=== PATIENT | male | born 1970 | race Caucasian/White ===

== ENCOUNTER 2017-02-26 23:37 | Emergency (ER) | payer SELFPAY ==
[~2017-02-26] VITALS: Ht 185.4 cm; Wt 140.0 kg
[2017-02-26 23:40] VITALS: BP 159/94; PULSE 91; RESP 16; TEMP 97.9; O2SAT 97
[2017-02-27] VITALS (7 sets, daily range): BP systolic 138–180; BP diastolic 65–103; PULSE 78–90; RESP 18–22; O2SAT 95–97
--- NOTE | 2017-02-27 00:18 | PD ---
HPI Chief Complaint: Psychiatric Symptoms Time Seen by Provider: 00:17 Travel History International Travel<30 days: No Contact w/Intl Traveler<30days: No Traveled to known affect area: No History of Present Illness HPI 46 YO male with extensive psychiatric history including PTSD, anxiety, depression, bipolar, mixed schizoaffective disorder, poor impulse control, antisocial personality type presents the ED for evaluation of "catching delusions." He states that he has been hearing voices for the last "3 or 4 days " telling him to "kill myself, torch this person, kill that person." He denies suicidal or homicidal ideation. He endorses compliance with his psychiatric medications. Denies somatic complaints on presentation. Denies illicit drug use or alcohol use. PFSH Past Medical History Asthma: Yes Social History Tobacco Use: Yes Allergies-Medications (Allergen,Severity, Reaction): Coded Allergies: No Known Allergies (Unverified , 02/27/17) Reported Meds & Prescriptions Reported Meds & Active Scripts Active Reported Gabapentin 300 Mg Cap 300 Mg PO TID Zyprexa (Olanzapine) 20 Mg Tab 20 Mg PO BID Xanax (Alprazolam) 0.5 Mg Tab 0.5 Mg PO Q8H PRN Review of Systems Except as stated in HPI: all other systems reviewed are Neg Physical Exam Narrative GENERAL: Well-nourished, well-developed obese white male in no acute distress. PSYCHIATRIC: Animated, normal speech, intense eye contact. SKIN: Focused skin assessment warm/dry. HEAD: Normocephalic. EYES: No scleral icterus. No injection or drainage. NECK: Supple, trachea midline. No JVD or lymphadenopathy. CARDIOVASCULAR: Regular rate and rhythm without murmurs, gallops, or rubs. RESPIRATORY: Breath sounds equal bilaterally. End expiratory wheezes in all lung aaron. No accessory muscle use. GASTROINTESTINAL: Abdomen protuberant, soft, non-tender, nondistended. MUSCULOSKELETAL: No cyanosis, or edema. Ambulatory. Moves extremities spontaneously. BACK: Nontender without obvious deformity. No CVA tenderness. Data Data Last Documented VS Vital Signs Date Time Temp Pulse Resp B/P Pulse Ox O2 Delivery O2 Flow Rate FiO2 02/27/17 16:39 85 22 176/100 95 Room Air 02/26/17 23:40 97.9 Orders Complete Blood Count With Diff (02/27/17 00:30) Comprehensive Metabolic Panel (02/27/17 00:30) Psych Screen (02/27/17 00:30) Drug Screen, Random Urine (02/27/17 00:30) Alcohol (Ethanol) (02/27/17 00:30) Diet Regular Basic (02/27/17 Breakfast) Diphenhydramine (Benadryl) (02/27/17 04:45) Diet Regular Basic (02/27/17 Lunch) Lorazepam Inj (Ativan Inj) (02/27/17 13:56) Diphenhydramine Inj (Benadryl Inj) (02/27/17 13:56) Haloperidol Inj (Haldol Inj) (02/27/17 13:56) Haloperidol Inj (Haldol Inj) (02/27/17 13:57) ^ Other Nursing Orders (02/27/17 14:14) Restraints Violent (02/27/17 14:39) Diet Regular Basic (02/27/17 Dinner) Labs Laboratory Tests Test 02/27/17 02/27/17 02:00 04:20 White Blood Count 8.4 TH/MM3 Red Blood Count 5.57 MIL/MM3 Hemoglobin 17.5 GM/DL Hematocrit 50.2 % Mean Corpuscular Volume 90.1 FL Mean Corpuscular Hemoglobin 31.4 PG Mean Corpuscular Hemoglobin 34.8 % Concent Red Cell Distribution Width 15.7 % Platelet Count 171 TH/MM3 Mean Platelet Volume 9.5 FL Neutrophils (%) (Auto) 56.7 % Lymphocytes (%) (Auto) 29.5 % Monocytes (%) (Auto) 7.6 % Eosinophils (%) (Auto) 5.1 % Basophils (%) (Auto) 1.1 % Neutrophils # (Auto) 4.8 TH/MM3 Lymphocytes # (Auto) 2.5 TH/MM3 Monocytes # (Auto) 0.6 TH/MM3 Eosinophils # (Auto) 0.4 TH/MM3 Basophils # (Auto) 0.1 TH/MM3 CBC Comment DIFF FINAL Differential Comment Sodium Level 141 MEQ/L Potassium Level 3.7 MEQ/L Chloride Level 104 MEQ/L Carbon Dioxide Level 30.3 MEQ/L Anion Gap 7 MEQ/L Blood Urea Nitrogen 16 MG/DL Creatinine 0.91 MG/DL Estimat Glomerular Filtration 89 ML/MIN Rate Random Glucose 115 MG/DL Calcium Level 8.9 MG/DL Total Bilirubin 0.5 MG/DL Aspartate Amino Transf 31 U/L (AST/SGOT) Alanine Aminotransferase 28 U/L (ALT/SGPT) Alkaline Phosphatase 95 U/L Total Protein 7.6 GM/DL Albumin 3.5 GM/DL Ethyl Alcohol Level LESS THAN 3 MG/DL Urine Opiates Screen NEG Urine Barbiturates Screen NEG Urine Amphetamines Screen NEG Urine Benzodiazepines Screen POS Urine Cocaine Screen NEG Urine Cannabinoids Screen POS MDM Medical Decision Making Medical Screen Exam Complete: Yes Emergency Medical Condition: Yes Differential Diagnosis Adjustment disorder versus anxiety versus bipolar versus depression versus dementia versus electrolyte disorder versus malingering versus mood disorder versus ODD versus psychosis versus PTSD versus schizophrenia versus schizoaffective disorder versus substance-induced mood disorder versus other Narrative Course 46 YO male with extensive psychiatric history including PTSD, anxiety, depression, bipolar, mixed schizoaffective disorder, poor impulse control, antisocial personality type presents the ED for evaluation of "catching delusions." He states that he has been hearing voices for the last "3 or 4 days " telling him to "kill myself, torch this person, kill that person." He denies suicidal or homicidal ideation. He endorses compliance with his psychiatric medications. Denies somatic complaints on presentation. Vitals reviewed. Physical exam reveals an obese white male in no acute distress. Indifferent or wheezes bilateral lung aaron. Abdomen soft, nontender. Otherwise unremarkable. Patient does spend several minutes detailing the violent and impulsive things he's done throughout his lifetime. He states that he has been imprisoned the majority of his life. Lab work pending. Anticipate medical clearance for psychiatric evaluation. Diagnosis Primary Impression: Medical clearance for psychiatric admission Victoria Moore Feb 27, 2017 00:18
[2017-02-27] MEDS ORDERED: ZYPR20TA PO (00:21)
[2017-02-27] MEDS ORDERED: ALPR.5 PO (00:21)
[2017-02-27] MEDS ORDERED: GABA300C5 PO (00:21)
[2017-02-27 02:37] LABS: AUTOMATED NEUTROPHIL # 4.8 TH/MM3 (1.8-7.7); BASOPHIL # 0.1 TH/MM3 (0-0.2); BASOPHIL % 1.1 % (0.0-2.0); EOSINOPHIL # 0.4 TH/MM3 (0-0.4); EOSINOPHIL % 5.1 % (0.0-4.0); HEMATOCRIT 50.2 % (39.0-51.0); HEMO FLAGS DIFF FINAL; LYMPH % 29.5 % (9.0-44.0); LYMPHOCYTE # 2.5 TH/MM3 (1.0-4.8); MEAN CELL VOLUME 90.1 FL (80.0-100.0); MEAN CORPUSCULAR HEMOGLOBIN 31.4 PG (27.0-34.0); MEAN CORPUSCULAR HGB CONC 34.8 % (32.0-36.0); MONO % 7.6 % (0.0-8.0); NEUT % 56.7 % (16.0-70.0); PLATELET COUNT 171 TH/MM3 (150-450); RED BLOOD COUNT 5.57 MIL/MM3 (4.50-5.90); RED CELL DISTRIBUTION WIDTH 15.7 % (11.6-17.2); WHITE BLOOD COUNT 8.4 TH/MM3 (4.0-11.0)
[2017-02-27 03:03] LABS: ALKALINE PHOSPHATASE 95 U/L (45-117); TOTAL BILIRUBIN ADULT 0.5 MG/DL (0.2-1.0)
[2017-02-27 03:11] LABS: ALT (GPT) 28 U/L (12-78); ANION GAP 7 MEQ/L (5-15); AST (GOT) 31 U/L (15-37); BICARBONATE 30.3 MEQ/L (21.0-32.0); BLOOD UREA NITROGEN 16 MG/DL (7-18); CHLORIDE 104 MEQ/L (98-107); GLOMERULAR FILTRATION RATE 89 ML/MIN (>89); POTASSIUM 3.7 MEQ/L (3.5-5.1); SODIUM (NA) 141 MEQ/L (136-145)
--- NOTE | 2017-02-27 03:33 | PD ---
Physical Exam Date Seen by Provider: Feb 27, 2017 Time Seen by Provider: 03:31 Data Data Last Documented VS Vital Signs Date Time Temp Pulse Resp B/P Pulse Ox O2 Delivery O2 Flow Rate FiO2 02/26/17 23:40 97.9 91 16 159/94 97 Room Air Orders Complete Blood Count With Diff (02/27/17 00:30) Comprehensive Metabolic Panel (02/27/17 00:30) Psych Screen (02/27/17 00:30) Drug Screen, Random Urine (02/27/17 00:30) Alcohol (Ethanol) (02/27/17 00:30) Labs Laboratory Tests Test 02/27/17 02:00 White Blood Count 8.4 TH/MM3 Red Blood Count 5.57 MIL/MM3 Hemoglobin 17.5 GM/DL Hematocrit 50.2 % Mean Corpuscular Volume 90.1 FL Mean Corpuscular Hemoglobin 31.4 PG Mean Corpuscular Hemoglobin 34.8 % Concent Red Cell Distribution Width 15.7 % Platelet Count 171 TH/MM3 Mean Platelet Volume 9.5 FL Neutrophils (%) (Auto) 56.7 % Lymphocytes (%) (Auto) 29.5 % Monocytes (%) (Auto) 7.6 % Eosinophils (%) (Auto) 5.1 % Basophils (%) (Auto) 1.1 % Neutrophils # (Auto) 4.8 TH/MM3 Lymphocytes # (Auto) 2.5 TH/MM3 Monocytes # (Auto) 0.6 TH/MM3 Eosinophils # (Auto) 0.4 TH/MM3 Basophils # (Auto) 0.1 TH/MM3 CBC Comment DIFF FINAL Differential Comment Sodium Level 141 MEQ/L Potassium Level 3.7 MEQ/L Chloride Level 104 MEQ/L Carbon Dioxide Level 30.3 MEQ/L Anion Gap 7 MEQ/L Blood Urea Nitrogen 16 MG/DL Creatinine 0.91 MG/DL Estimat Glomerular Filtration 89 ML/MIN Rate Random Glucose 115 MG/DL Calcium Level 8.9 MG/DL Total Bilirubin 0.5 MG/DL Aspartate Amino Transf 31 U/L (AST/SGOT) Alanine Aminotransferase 28 U/L (ALT/SGPT) Alkaline Phosphatase 95 U/L Total Protein 7.6 GM/DL Albumin 3.5 GM/DL Ethyl Alcohol Level LESS THAN 3 MG/DL [facility] Medical Record Reviewed: Yes Supervised Visit with KIRSTEN: Yes Interpretation(s) CBC & BMP Diagram 02/27/17 02:00 EtOH: Negative Differential Diagnosis MDM: High Differential diagnoses: Schizophrenia, schizoaffective disorder, bipolar, anxiety, depression, adjustment reaction, mood disorder NOS, ODD, depressive disorder NOS, dementia, dementia with agitation, psychosis NOS, substance induced mood disorder, intermittent explosive disorder, Asperger syndrome, infection,electrolyte abnormality, malingering. Narrative Course Mental health screening discussed with the patient. Psychiatric screen ordered. The patient's been medically cleared. His medical clearance for psychiatric admission Diagnosis Primary Impression: Medical clearance for psychiatric admission Condition: Stable Ata Fernández Feb 27, 2017 03:33
[2017-02-27] MEDS ORDERED: diphenhydrAMINE HCL 50 MG CAP PO ONE (04:45)
[2017-02-27 04:54] LABS: AMPHETAMINE, URINE NEG (NEG); BARBITURATES, URINE NEG (NEG); COCAINE, URINE NEG (NEG)
[2017-02-27] MEDS ORDERED: HALOPERIDOL LACTATE 5 MG/ML AMP ONE ×2 (13:56→13:57)
[2017-02-27] MEDS ORDERED: LORazepam 2 MG/ML VIAL ONE (13:56)
[2017-02-27] MEDS ORDERED: diphenhydrAMINE HCL 50 MG/ML VIAL ONE (13:56)
--- NOTE | 2017-02-27 14:07 | PD ---
History of Present Illness Chief Complaint: Psychiatric Symptoms Time Seen by Provider: 13:30 Travel History International Travel<30 Days: No Contact w/Intl Traveler<30days: No Known affected area: No Legal Status Legal Status: Voluntary History of Present Illness: 46-year-old male recently moved to this area, now homeless and complaining of posttraumatic stress disorder, auditory hallucinations and both suicidal and homicidal thoughts. Patient has self reportedly admitted to multiyear history of incarceration. He has been treated in the past by doctors prescribing him Zyprexa, Xanax and occasional Zoloft. At this time, he does not objectively appear to have significant symptoms of posttraumatic stress disorder or other major mental illnesses. He does appear to be quite manipulative and is complaining of hearing voices when there is no evidence of him responding to internal stimuli. When this physician offered to renew his medications but not admit him, the patient became physically violent, threatening to kill this physician or other individuals as well as kill himself. Patient required physical restraints and chemical restraints as he is a large and violent man. PFSH Past Medical History Asthma: Yes Bipolar Disorder: Yes Diminished Hearing: No Psychiatric: Yes (PTSD, ) Past Surgical History Surgical History: No Previous Surgery Psychiatric History Psychiatric History Hx Psychiatric Treatment: YES PER PATIENT. Patient reports history of posttraumatic stress disorder, schizophrenia, etc. This physician does not see significant objective evidence of any major mental illness with the exception of malingering. History of Inpatient Treatment: Yes Guns or firearms in home: No Social History Hx Alcohol Use: No Hx Tobacco Use: Yes Hx Substance Use: Yes Substance Use Type: Marijuana, Nicotine/Cigarettes Other Substances Used: PATIENT REPORTS 2 PPD Hx of Substance Use Treatment: No Allergies-Medications (Allergen,Severity, Reaction): Coded Allergies: No Known Allergies (Unverified , 02/27/17) Reported Meds & Prescriptions Reported Meds & Active Scripts Active Reported Gabapentin 300 Mg Cap 300 Mg PO TID Zyprexa (Olanzapine) 20 Mg Tab 20 Mg PO BID Xanax (Alprazolam) 0.5 Mg Tab 0.5 Mg PO Q8H PRN Review of Systems ROS Limitations: Combative Exam Exam Limitations: Combative Alert: Yes [place]: Person, Place, Date, Situation Mood: Agitated, Angry, Oppositional Affect: Labile Speech: Clear, Logical Eye Contact: Normal Memory Intact: Immediate, Recent, Remote Suicidal: Ideation Homicidal: Ideation Insight/Judgement Impaired at this time. MDM Medical Decision Making Medical Record Reviewed: Yes Assessment/Plan Spoke with nurse and spoke with patient. When patient learned this physician would give him medicines but not admit him, the patient became violent and threatening towards this physician, himself and random other people. Patient requires physical and chemical restraints. He will be reevaluated. This physician continues to feel the patient's main diagnosis psychiatrically is malingering. Orders Complete Blood Count With Diff (02/27/17 00:30) Comprehensive Metabolic Panel (02/27/17 00:30) Psych Screen (02/27/17 00:30) Drug Screen, Random Urine (02/27/17 00:30) Alcohol (Ethanol) (02/27/17 00:30) Diet Regular Basic (02/27/17 Breakfast) Diphenhydramine (Benadryl) (02/27/17 04:45) Diet Regular Basic (02/27/17 Lunch) Lorazepam Inj (Ativan Inj) (02/27/17 13:56) Diphenhydramine Inj (Benadryl Inj) (02/27/17 13:56) Haloperidol Inj (Haldol Inj) (02/27/17 13:56) Haloperidol Inj (Haldol Inj) (02/27/17 13:57) Results Vital Signs Date Time Temp Pulse Resp B/P Pulse Ox O2 Delivery O2 Flow Rate FiO2 02/27/17 10:10 78 18 138/65 Room Air 02/27/17 08:46 152/84 02/27/17 06:37 81 18 151/102 97 02/26/17 23:40 97.9 91 16 159/94 97 Room Air Laboratory Tests Test 02/27/17 02/27/17 02:00 04:20 White Blood Count 8.4 Red Blood Count 5.57 Hemoglobin 17.5 Hematocrit 50.2 Mean Corpuscular Volume 90.1 Mean Corpuscular Hemoglobin 31.4 Mean Corpuscular Hemoglobin 34.8 Concent Red Cell Distribution Width 15.7 Platelet Count 171 Mean Platelet Volume 9.5 Neutrophils (%) (Auto) 56.7 Lymphocytes (%) (Auto) 29.5 Monocytes (%) (Auto) 7.6 Eosinophils (%) (Auto) 5.1 Basophils (%) (Auto) 1.1 Neutrophils # (Auto) 4.8 Lymphocytes # (Auto) 2.5 Monocytes # (Auto) 0.6 Eosinophils # (Auto) 0.4 Basophils # (Auto) 0.1 CBC Comment DIFF FINAL Differential Comment Sodium Level 141 Potassium Level 3.7 Chloride Level 104 Carbon Dioxide Level 30.3 Anion Gap 7 Blood Urea Nitrogen 16 Creatinine 0.91 Estimat Glomerular Filtration 89 Rate Random Glucose 115 Calcium Level 8.9 Total Bilirubin 0.5 Aspartate Amino Transf 31 (AST/SGOT) Alanine Aminotransferase 28 (ALT/SGPT) Alkaline Phosphatase 95 Total Protein 7.6 Albumin 3.5 Ethyl Alcohol Level LESS THAN 3 Urine Opiates Screen NEG Urine Barbiturates Screen NEG Urine Amphetamines Screen NEG Urine Benzodiazepines Screen POS Urine Cocaine Screen NEG Urine Cannabinoids Screen POS Diagnosis Primary Impression: Malingering Condition: Stable Rajan Kaufman MD Feb 27, 2017 14:07
== END 2017-02-27 21:44 | disposition home or self-care (01) ==
LOC: NEPD 23:37 → NEPJ 02-27 21:44
DX: R44.0 Auditory hallucinations (principal); F12.90 Cannabis use, unspecified, uncomplicated; F43.10 Post-traumatic stress disorder, unspecified; F41.8 Other specified anxiety disorders; F31.9 Bipolar disorder, unspecified; F25.0 Schizoaffective disorder, bipolar type; F60.2 Antisocial personality disorder; Z72.0 Tobacco use; Z59.0 Homelessness; Z76.5 Malingerer [conscious simulation]
CPT/HCPCS: 80053; 80307; 85025; 96372; 99285; J1200; J1630; J2060; Q0163

== ENCOUNTER 2017-02-27 22:54 | Emergency (ER) | payer OTHER ==
[~2017-02-27] VITALS: Ht 185.4 cm; Wt 170.0 kg
[~2017-02-27 22:54] MED LIST: ALPR.5 PO; GABA300C5 PO; ZYPR20TA PO
--- NOTE | 2017-02-27 23:09 | PD ---
HPI Chief Complaint: [place] act Time Seen by Provider: 23:05 (Ata Fernández) Time Seen by Provider: 23:03 (Silverio Hammond MD) Travel History International Travel<30 days: No Contact w/Intl Traveler<30days: No Traveled to known affect area: No (Ata Fernández) International Travel<30 days: No Contact w/Intl Traveler<30days: No Traveled to known affect area: No (Silverio Hammond MD) History of Present Illness HPI 46-year-old white male returns after being discharged from the hospital only approximately an hour ago after being discharged by the psychiatrist. The patient is here once again under [place] act. The patient states that he is suicidal and homicidal. He states that he would like to be admitted to the hospital because he does not feel his psychiatric needs have been met. He was offered a refill of his medications but he states that he does not have the funds to fill them nor does he feel that this is going to help him. He feels that he needs to be admitted to the hospital for some time to get medications leveled in his body. He states that he suffers from posttraumatic stress disorder and a host of other psychiatric problems as well as anxiety and depression. The patient states that his hearing voices. The patient states that he will walk out traffic. He also states that he will hurt someone. He has no plan on hurting anyone at this time. (Ata Fernández) HPI Patient being seen by my title i assistant. Please see his that his dictation. (Silverio Hammond MD) PFSH Past Medical History Asthma: Yes Bipolar Disorder: Yes Diminished Hearing: No Psychiatric: Yes (PTSD, ) (Ata Fernández) Social History Alcohol Use: No Tobacco Use: Yes Substance Use: Yes (Ata Fernández) Allergies-Medications (Allergen,Severity, Reaction): Coded Allergies: No Known Allergies (Unverified , 02/27/17) Reported Meds & Prescriptions Reported Meds & Active Scripts Active Reported Gabapentin 300 Mg Cap 300 Mg PO TID Zyprexa (Olanzapine) 20 Mg Tab 20 Mg PO BID Xanax (Alprazolam) 0.5 Mg Tab 0.5 Mg PO Q8H PRN (Silverio Hammond MD) Review of Systems Except as stated in HPI: all other systems reviewed are Neg Psychiatric: Positive: Anxiety, Depression, Suicidal Ideations, Disorder of Thought, Homicidal Ideation, No: Mood Disorder, Substance Abuse (Ata Fernández) General / Constitutional: No: Fever Eyes: No: Visual changes HENT: No: Headaches Cardiovascular: No: Chest Pain or Discomfort Respiratory: No: Shortness of Breath Gastrointestinal: No: Abdominal Pain Genitourinary: No: Dysuria Musculoskeletal: No: Pain Skin: No Rash Neurologic: No: Weakness Psychiatric: No: Depression Endocrine: No: Polydipsia Hematologic/Lymphatic: No: Easy Bruising (Silverio Hammond MD) Physical Exam Narrative Please see physician title i assistant dictation. (Silverio Hammond MD) Data Data Last Documented VS Vital Signs Date Time Temp Pulse Resp B/P Pulse Ox O2 Delivery O2 Flow Rate FiO2 02/27/17 23:22 98.4 90 14 127/86 94 (Silverio Hammond MD) Orders Psych Screen (02/27/17 23:03) (Silverio Hammond MD) MDM Medical Decision Making Medical Screen Exam Complete: Yes Emergency Medical Condition: Yes Medical Record Reviewed: Yes Differential Diagnosis MDM: High Differential diagnoses: Schizophrenia, schizoaffective disorder, bipolar, anxiety, depression, adjustment reaction, mood disorder NOS, ODD, depressive disorder NOS, dementia, dementia with agitation, psychosis NOS, substance induced mood disorder, intermittent explosive disorder, Asperger syndrome, infection,electrolyte abnormality, malingering. Narrative Course Mental health screening discussed with the patient. Psychiatric screen ordered. The patient's been medically cleared. I reviewed the patient's medical record. There is no indication for any additional testing at this time. He was just discharged a little over an hour ago. He was seen by the psychiatrist and deemed safe to go. The patient feels that he needs to be admitted. He states that he is homeless. He has no money. Medical clearance for psychiatric admission, malingering (Ata Fernández) Medical Screen Exam Complete: Yes Emergency Medical Condition: Yes Medical Record Reviewed: Yes Differential Diagnosis Please see physician title i assistant dictation. Narrative Course Please see physician title i assistant dictation. (Silverio Hammond MD) Diagnosis Primary Impression: Medical clearance for psychiatric admission Additional Impression: Malingering Condition: Stable Ata Fernández Feb 27, 2017 23:09 Silverio Hammond MD Feb 28, 2017 00:19
[2017-02-27 23:22] VITALS: BP 127/86; PULSE 90; RESP 14; TEMP 98.4; O2SAT 94
[2017-02-28] MEDS ORDERED: OLANZapine 10 MG TAB PO ONE (07:45)
[2017-02-28] MEDS ORDERED: ALPRAZolam 0.5 MG TAB PO ONE (07:45)
[2017-02-28] MEDS ORDERED: GABAPENTIN 300 MG CAP PO ONE (07:45)
== END 2017-02-28 08:19 | disposition home health service (06) ==
LOC: NEPD 22:54
DX: Z76.5 Malingerer [conscious simulation] (principal); F31.9 Bipolar disorder, unspecified; F43.10 Post-traumatic stress disorder, unspecified; Z72.0 Tobacco use
CPT/HCPCS: 99284

== ENCOUNTER 2017-06-12 15:27 | Emergency (ER) | payer SELFPAY ==
[~2017-06-12] VITALS: Ht 182.9 cm; Wt 170.0 kg
--- NOTE | 2017-06-12 15:32 | PD ---
Physical Exam Date Seen by Provider: Jun 12, 2017 Time Seen by Provider: 15:32 MDM Supervised Visit with KIRSTEN: No Narrative Course 47-year-old male presents to the ED via EMS for 8/10 lower back and left flank pain. Sudden onset after a coughing fit today. Patient seen in triage, awaiting bed placement. Victoria Moroe Jun 12, 2017 15:32
[2017-06-12 15:44] VITALS: BP 113/69; PULSE 95; RESP 18; TEMP 98; O2SAT 98
[2017-06-12] MEDS ORDERED: TRAM50TA PO ×2 (18:31→19:49)
[2017-06-12] MEDS ORDERED: KETOROLAC TROMETHAMINE 30 MG/ML (IVP) VIAL IV PUSH ONE (18:45)
[2017-06-12] MEDS: RESP: ALBUTEROL 2.5 MG/IPRATROPIUM 0.5 MG NEB (SCH) INH ×2 (18:45→19:00)
[2017-06-12] MEDS ORDERED: CYCLOBENZAPRINE HCL 10 MG TAB PO ONE (18:45)
[2017-06-12] MEDS ORDERED: methylPREDNISolone SOD SUCC 125 MG/2 ML VIAL IV PUSH ONE (18:45)
--- NOTE | 2017-06-12 19:29 | RADRPT ---
EXAM DATE/TIME: 06/12/2017 18:46 [facility] COMPARISON: No previous studies available for comparison. INDICATIONS : Left side rib pain following cough. MEDICAL HISTORY : Chronic obstructive pulmonary disease. Asthma. SURGICAL HISTORY : None. ENCOUNTER: Initial ACUITY: 2 days PAIN SCORE: 8/10 LOCATION: Left Lower ribs FINDINGS: Multiple views of the left ribs were performed. There is no evidence of displaced fracture. No dest ructive lesions or areas of periosteal thickening are seen. Expiratory view of the chest is negative for pneumothorax. The mediastinal structures are midline. CONCLUSION: No left rib fracture seen. Jhonatan Malloy MD on June 12, 2017 at 19:26 Board Certified Radiologist. This report was verified electronically.
[2017-06-12] MEDS ORDERED: ACETAMINOPHEN/HYDROcodone 325 MG/5 MG TAB PO ONE (19:45)
--- NOTE | 2017-06-12 19:49 | PD ---
HPI Chief Complaint: Flank/Kidney Pain Time Seen by Provider: 18:25 Travel History International Travel<30 days: No Contact w/Intl Traveler<30days: No Traveled to known affect area: No History of Present Illness HPI Patient is a 47 year old male who comes in complaining of left sided back pain. He says he was coughing when he started to feel severe pain in his back, as if he had pulled something or broken a rib. He says he has broken ribs in the past from coughing. He did not take anything at home for pain because he says "I am a big man and Motrin doesn't work." He denies nausea or vomiting. He denies any urinary issues. PFSH Past Medical History Asthma: Yes Bipolar Disorder: Yes Diminished Hearing: No Psychiatric: Yes (PTSD, ) Respiratory: Yes (COPD) Schizophrenia: Yes Social History Alcohol Use: Yes Tobacco Use: Yes Substance Use: Yes Allergies-Medications (Allergen,Severity, Reaction): Coded Allergies: No Known Allergies (Unverified , 02/27/17) Reported Meds & Prescriptions Reported Meds & Active Scripts Active Reported Tramadol (Tramadol HCl) 50 Mg Tab 50 Mg PO Q4H PRN Review of Systems Except as stated in HPI: all other systems reviewed are Neg General / Constitutional: No: Fever, Chills HENT: No: Headaches, Lightheadedness Cardiovascular: No: Chest Pain or Discomfort Respiratory: Positive: Cough, No: Shortness of Breath Gastrointestinal: No: Nausea, Vomiting Musculoskeletal: Positive: Pain Skin: No Rash, No Change in Pigmentation Neurologic: No: Weakness, Dizziness Physical Exam Narrative GENERAL: Awake and alert, in no acute distress. SKIN: Focused skin assessment warm/dry. HEAD: Atraumatic. Normocephalic. EYES: Pupils equal and round. No scleral icterus. ENT: Mucous membranes pink and moist. NECK: Trachea midline. No JVD. CARDIOVASCULAR: Regular rate and rhythm. No murmur appreciated. RESPIRATORY: No accessory muscle use. Clear to auscultation. Breath sounds equal bilaterally. GASTROINTESTINAL: Abdomen soft, non-tender, nondistended. MUSCULOSKELETAL: No obvious deformities. No clubbing. No cyanosis. No edema. No tenderness to the spine. Tender to paraspinal muscles. NEUROLOGICAL: Awake and alert. No obvious cranial nerve deficits. Motor grossly within normal limits. Normal speech. PSYCHIATRIC: Appropriate mood and affect; insight and judgment normal. Data Data Last Documented VS Vital Signs Date Time Temp Pulse Resp B/P (MAP) Pulse Ox O2 Delivery O2 Flow Rate FiO2 06/12/17 18:38 20 06/12/17 15:44 98.0 95 113/69 (84) 98 Orders Orders Methylprednisolone So Succ Inj (Solumedr (06/12/17 18:45) Albuterol-Ipratropium Neb (Duoneb Neb) (06/12/17 18:45) Ribs, Uni (W/Exp Cxr-Min 3vw) (06/12/17 ) Ketorolac Inj (Toradol Inj) (06/12/17 18:45) Cyclobenzaprine (Flexeril) (06/12/17 18:45) Acetamin-Hydrocod 325-5 Mg ([place] 5-325 (06/12/17 19:45) MDM Medical Decision Making Medical Screen Exam Complete: Yes Emergency Medical Condition: Yes Medical Record Reviewed: Yes Differential Diagnosis rib fracture vs muscle strain vs low back pain Narrative Course Patient is a 47 year old male who comes in complaining of back pain. Exam shows some paraspinal muscle tenderness. He has bilateral wheezing. Given Toradol and Flexeril, and he says this does not help. Given Lortab. Discharged home. Offered a duoneb, however, he does not want them. Advised to quit smoking. Advised to follow up with a primary care doctor. Advised to return at any time for any worsening symptoms. Diagnosis Primary Impression: Low back strain Qualified Codes: S39.012A - Strain of muscle, fascia and tendon of lower back , initial encounter Patient Instructions: General Instructions, Muscle Strain (ED) Additional Instructions: Take Ibuprofen or Tylenol as needed for pain. Follow up with a primary care doctor. Return to the ED as needed for any worsening symptoms. Scripts Tramadol (Tramadol) 50 Mg Tab 50 MG PO Q6H Y for PAIN, #6 TAB 0 Refills Prov: Chika Smith MD 06/12/17 Disposition: 01 DISCHARGE HOME Condition: Stable Chika Smith MD Jun 12, 2017 19:49
== END 2017-06-12 20:03 | disposition home or self-care (01) ==
LOC: NEPD 15:27
DX: S39.012A Strain of muscle, fascia and tendon of lower back, initial encounter (principal); J45.909 Unspecified asthma, uncomplicated; F31.9 Bipolar disorder, unspecified; F43.10 Post-traumatic stress disorder, unspecified; J44.9 Chronic obstructive pulmonary disease, unspecified; F20.9 Schizophrenia, unspecified; X58.XXXA Exposure to other specified factors, initial encounter; Z72.0 Tobacco use
CPT/HCPCS: 71101; 96374; 96375; 99284; J1885; J2930

== ENCOUNTER 2017-07-07 21:45 | Emergency (ER) | payer MEDICAID ==
[~2017-07-07] VITALS: Ht 182.9 cm; Wt 175.0 kg
[~2017-07-07 21:45] MED LIST changes: -ALPR.5 PO; -GABA300C5 PO; +TRAM50TA PO; -ZYPR20TA PO
[2017-07-07 21:57] VITALS: BP 151/84; PULSE 93; RESP 20; TEMP 98.2; O2SAT 99
[2017-07-07] MEDS ORDERED: LIDOCAINE HCL 5% PATCH T-DERMAL ONE (22:15)
--- NOTE | 2017-07-07 22:21 | PD ---
HPI Chief Complaint: Fall Time Seen by Provider: 22:00 Travel History International Travel<30 days: No Contact w/Intl Traveler<30days: No Traveled to known affect area: No History of Present Illness HPI 47-year-old male presents for evaluation of left-sided rib cage pain. He reports that prior to arrival he was walking when he tripped and fell, landing on his left side. No head trauma loss of consciousness. He is complaining of lateral left rib cage pain which is sharp and worse with movement and inspiration. He reports that he has had similar injuries to his ribs several times in the past, rib fractures in the past, he reports that back when he lived in [place] he would typically received some sort of IV opiate therapy for his pain. He reports a prior to arrival he took one of his 's Percocet as well as 6 Motrin. He denies any hemoptysis, cough, neck pain, pain in the arms or legs, abdominal pain, nausea or vomiting. Of note, the patient was seen her on June 12 with left-sided rib cage pain. He had a rib x-ray which was unremarkable. PFSH Past Medical History Asthma: Yes Bipolar Disorder: Yes COPD: Yes Diminished Hearing: No Psychiatric: Yes (PTSD, ) Respiratory: Yes (COPD) Schizophrenia: Yes Tetanus Vaccination: Unknown Influenza Vaccination: No Past Surgical History Surgical History: No Previous Surgery Social History Alcohol Use: No (DENIES) Tobacco Use: Yes (2PPD) Substance Use: Yes (WEED OCCASSIONALLY) Allergies-Medications (Allergen,Severity, Reaction): Coded Allergies: No Known Allergies (Unverified , 02/27/17) Reported Meds & Prescriptions Reported Meds & Active Scripts Active Lidocaine Patch 12 HR (Lidocaine) 5 % Patch 1 Patch TOPICAL DAILY PRN Remove patch after 12 hours Ibuprofen 800 Mg Tab 800 Mg PO Q6HR PRN Lortab (Hydrocodone-Acetaminophen) 5-325 Mg Tab 1 Tab PO Q6H PRN Tramadol (Tramadol HCl) 50 Mg Tab 50 Mg PO Q6H PRN Reported Tramadol (Tramadol HCl) 50 Mg Tab 50 Mg PO Q4H PRN Review of Systems Except as stated in HPI: all other systems reviewed are Neg Physical Exam Narrative GENERAL: Obese male who is in no acute distress. He is conversing normally. He is not tachypneic. SKIN: Warm and moist. All abrasions to the left shoulder. No ecchymosis. HEAD: Atraumatic. Normocephalic. EYES: Pupils equal and round. No scleral icterus. No injection or drainage. ENT: No nasal bleeding or discharge. Mucous membranes pink and moist. NECK: Trachea midline. No JVD. CARDIOVASCULAR: Regular rate and rhythm. No murmur appreciated. RESPIRATORY: No accessory muscle use. Clear to auscultation. Breath sounds equal bilaterally. No crackles no wheezing or rhonchi. GASTROINTESTINAL: Abdomen soft, non-tender, nondistended. Hepatic and splenic margins not palpable. No guarding. MUSCULOSKELETAL: No obvious deformities. There is some tenderness to palpation to the lateral left rib cage. No crepitus. No tenderness to palpation along the cervical thoracic or lumbar midline spine. NEUROLOGICAL: Awake and alert. No obvious cranial nerve deficits. Motor grossly within normal limits. Normal speech. PSYCHIATRIC: Appropriate mood and affect; insight and judgment normal. Data Data Last Documented VS Vital Signs Date Time Temp Pulse Resp B/P (MAP) Pulse Ox O2 Delivery O2 Flow Rate FiO2 07/07/17 21:57 98.2 93 20 151/84 (106) 99 Orders Orders Ribs, Uni (W/Exp Cxr-Min 3vw) (07/07/17 ) Lidocaine 5% Patch.12 Hr (Lidoderm 5% Pa (07/07/17 22:15) Resp Incentive Spirometry (07/07/17 ) Orphenadrine Inj (Norflex Inj) (07/07/17 22:30) Ed Discharge Order (07/07/17 22:45) MDM Medical Decision Making Medical Screen Exam Complete: Yes Emergency Medical Condition: Yes Medical Record Reviewed: Yes Differential Diagnosis Rib contusion, rib fracture, pneumothorax, hemothorax, splenic laceration Narrative Course Physical examination is reassuring. His vital signs are stable. He is not hypoxic, tachypneic, tachycardic. Lung sounds are clear and present bilaterally. He has some focal tenderness to palpation to lateral left rib cage. This was a fall from standing height. Rib x-ray will be obtained. Rib x-ray does reveal a left-sided ninth rib fracture. Therefore the patient is being discharged with ibuprofen, Lidoderm patches and a small course of Lortab for breakthrough pain. He was given an incentive spirometer as well. Diagnosis Primary Impression: Rib fracture Qualified Codes: S22.32XA - Fracture of one rib, left side, initial encounter for closed fracture Additional Instructions: Medication as needed. Incentive spirometer 10 times normal awake. Follow-up with primary care in 1 week. Return for any emergent medical conditions. Med/Other Pt SpecificInfo: Prescription(s) given Scripts Lidocaine Patch 12 HR (Lidocaine Patch 12 HR) 5 % Patch 1 PATCH TOPICAL DAILY Y for PAIN, #1 BOX 0 Refills Remove patch after 12 hours Prov: Stevenson Callahan MD 07/07/17 Ibuprofen (Ibuprofen) 800 Mg Tab 800 MG PO Q6HR Y for PAIN, #40 TAB 0 Refills Prov: Stevenson Callahan MD 07/07/17 Hydrocodone-Acetaminophen (Lortab) 5-325 Mg Tab 1 TAB PO Q6H Y for PAIN, #12 TAB 0 Refills Prov: Stevenson Callahan MD 07/07/17 Disposition: 01 DISCHARGE HOME Condition: Stable Rm Romero Jul 07, 2017 22:21
[2017-07-07] MEDS ORDERED: ORPHENADRINE INJ 60 MG/2 ML AMP IM ONE (22:30)
--- NOTE | 2017-07-07 22:33 | RADRPT ---
EXAM DATE/TIME: 07/07/2017 22:22 [facility] COMPARISON: RIBS LEFT(W PA CXR MIN 3VWS), June 12, 2017, 18:46. INDICATIONS : Left rib pain post fall today MEDICAL HISTORY : None. SURGICAL HISTORY : None. ENCOUNTER: Initial ACUITY: 1 day PAIN SCORE: 10/10 LOCATION: Left axillary ribs FINDINGS: There is slight focal angulation of the posterior lateral left ninth rib which likely reflects site o f fracture. There is perihilar and basilar interstitial prominence which is similar to prior. Borderl ine heart size. No definite evidence of pneumothorax. CONCLUSION: Slightly angulated posterolateral left ninth rib fracture. Interstitial disease changes similar to pr ior. Hector Perez MD on July 07, 2017 at 22:29 Board Certified Radiologist. This report was verified electronically.
[2017-07-07] MEDS ORDERED: HYDR-3533 PO (22:46)
[2017-07-07] MEDS ORDERED: LIDO1PAD52 TOPICAL (22:46)
[2017-07-07] MEDS ORDERED: IBUP800T23 PO (22:46)
== END 2017-07-07 23:06 | disposition home or self-care (01) ==
LOC: NEPC 21:45
DX: S22.32XA Fracture of one rib, left side, initial encounter for closed fracture (principal); J45.909 Unspecified asthma, uncomplicated; F31.9 Bipolar disorder, unspecified; J44.9 Chronic obstructive pulmonary disease, unspecified; F43.10 Post-traumatic stress disorder, unspecified; F20.9 Schizophrenia, unspecified; F17.200 Nicotine dependence, unspecified, uncomplicated; W01.0XXA Fall on same level from slipping, tripping and stumbling without subsequent striking against object, initial encounter
CPT/HCPCS: 71101; 96372; 99284; J2360

== ENCOUNTER 2017-12-18 22:41 | Emergency (ER) | payer MEDICAID, OTHER ==
[~2017-12-18 22:41] MED LIST changes: +HYDR-3533 PO; +IBUP1TAB7 PO; +LIDO1PAD52 TOPICAL
[2017-12-18] MEDS ORDERED: IOHEXOL 350 MG/ML 10 ML VIAL (for RAD DIAG) IVCONTRAST ONE (22:42)
[2017-12-18 23:37] VITALS: BP 154/90; PULSE 97; RESP 24; TEMP 98; O2SAT 95
[2017-12-19] MEDS ORDERED: SODIUM CHLORIDE 0.9% FLUSH 10 ML FLUSH IVF PRN (00:45)
[2017-12-19] MEDS ORDERED: MORPHINE SULFATE 2 MG/ML SYRINGE IV PUSH ONE (00:45)
[2017-12-19] MEDS ORDERED: methylPREDNISolone SOD SUCC 125 MG/2 ML VIAL IV PUSH ONE (00:45)
--- NOTE | 2017-12-19 01:12 | PD ---
HPI Chief Complaint: Musculoskeletal Complaint Time Seen by Provider: 00:37 Travel History International Travel<30 days: No Contact w/Intl Traveler<30days: No Traveled to known affect area: No History of Present Illness HPI 47-year-old male here for evaluation of cough and flulike symptoms for 2 months as well as left flank pain. The patient reports that he has felt unwell for 2 months with cough intermittently productive of yellowish sputum. No hemoptysis. No history of DVT or PE. Today he coughed so hard that he believes he strained his left lower back. He is having moderate to severe left flank pain that is worse with movements. No chest pains. He does smoke about a pack of cigarettes daily. He has had subjective fevers and chills. PFSH Past Medical History Asthma: Yes Bipolar Disorder: Yes COPD: Yes Diminished Hearing: No Psychiatric: Yes (PTSD, ) Respiratory: Yes (COPD) Schizophrenia: Yes Past Surgical History Other Surgery: Yes (BILAT FEET ) Social History Alcohol Use: No (DENIES) Tobacco Use: Yes (2PPD) Substance Use: Yes (WEED OCCASSIONALLY) Allergies-Medications (Allergen,Severity, Reaction): Coded Allergies: No Known Allergies (Unverified Allergy, Unknown, 12/19/17) Reported Meds & Prescriptions Reported Meds & Active Scripts Active Lidocaine Patch 12 HR (Lidocaine) 5 % Patch 1 Patch TOPICAL DAILY PRN Remove patch after 12 hours Ibuprofen 800 Mg Tab 800 Mg PO Q6HR PRN Tramadol (Tramadol HCl) 50 Mg Tab 50 Mg PO Q6H PRN Reported Tramadol (Tramadol HCl) 50 Mg Tab 50 Mg PO Q4H PRN Review of Systems Except as stated in HPI: all other systems reviewed are Neg Physical Exam Narrative GENERAL: Well-developed, well-nourished, awake, alert, no apparent distress. SKIN: Focused skin assessment warm/dry. No rash. HEAD: Atraumatic. Normocephalic. EYES: Pupils equal and round. No scleral icterus. No injection or drainage. ENT: Mucous membranes pink and moist. NECK: Trachea midline. No JVD. CARDIOVASCULAR: Regular rate and rhythm. No murmur appreciated. RESPIRATORY: No accessory muscle use. Moderate bilateral inspiratory and expiratory wheezes. Breath sounds equal bilaterally. GASTROINTESTINAL: Abdomen soft, non-tender, nondistended. MUSCULOSKELETAL: No obvious deformities. No clubbing. No cyanosis. No edema. Moderate left CVA tenderness. No right CVA tenderness. No midline vertebral step-off or tenderness. NEUROLOGICAL: Awake and alert. No obvious cranial nerve deficits. Motor grossly within normal limits. Normal speech. PSYCHIATRIC: Appropriate mood and affect; insight and judgment normal. Data Data Last Documented VS Vital Signs Date Time Temp Pulse Resp B/P (MAP) Pulse Ox O2 Delivery O2 Flow Rate FiO2 12/19/17 03:30 93 21 149/89 (109) 96 Room Air 12/19/17 01:35 3.00 12/18/17 23:37 98.0 Orders Orders Complete Blood Count With Diff (12/19/17 00:41) Comprehensive Metabolic Panel (12/19/17 00:41) B-Type Natriuretic Peptide (12/19/17 00:41) Act Partial Throm Time (Ptt) (12/19/17 00:41) Prothrombin Time / Inr (Pt) (12/19/17 00:41) Ckmb (Isoenzyme) Profile (12/19/17 00:41) Troponin I (12/19/17 00:41) Influenzae A/B Antigen (12/19/17 00:41) Iv Access Insert/Monitor (12/19/17 00:41) Ecg Monitoring (12/19/17 00:41) Oximetry (12/19/17 00:41) Oxygen Administration (12/19/17 00:41) Chest, Single Ap (12/19/17 00:41) Ct Pulmonary Angiogram (12/19/17 00:41) Sodium Chloride 0.9% Flush (Ns Flush) (12/19/17 00:45) Methylprednisolone So Succ Inj (Solumedr (12/19/17 00:45) Albuterol-Ipratropium Neb (Duoneb Neb) (12/19/17 00:45) Ct Abd/Pel W Iv Contrast(Rout) (12/19/17 ) Morphine Inj (Morphine Inj) (12/19/17 00:45) Ondansetron Inj (Zofran Inj) (12/19/17 01:30) CKMB (12/19/17 01:20) CKMB% (12/19/17 01:20) Hydromorphone Pf Inj (Dilaudid Pf Inj) (12/19/17 02:45) Iohexol 350 Inj (Omnipaque 350 Inj) (12/18/17 22:42) Hydromorphone Pf Inj (Dilaudid Pf Inj) (12/19/17 04:15) Labs Laboratory Tests Test 12/19/17 01:20 White Blood Count 10.1 TH/MM3 Red Blood Count 5.68 MIL/MM3 Hemoglobin 17.7 GM/DL Hematocrit 52.4 % Mean Corpuscular Volume 92.2 FL Mean Corpuscular Hemoglobin 31.1 PG Mean Corpuscular Hemoglobin Concent 33.7 % Red Cell Distribution Width 15.0 % Platelet Count 247 TH/MM3 Mean Platelet Volume 8.0 FL Neutrophils (%) (Auto) 66.6 % Lymphocytes (%) (Auto) 22.9 % Monocytes (%) (Auto) 5.6 % Eosinophils (%) (Auto) 4.1 % Basophils (%) (Auto) 0.8 % Neutrophils # (Auto) 6.7 TH/MM3 Lymphocytes # (Auto) 2.3 TH/MM3 Monocytes # (Auto) 0.6 TH/MM3 Eosinophils # (Auto) 0.4 TH/MM3 Basophils # (Auto) 0.1 TH/MM3 CBC Comment DIFF FINAL Differential Comment Prothrombin Time 10.4 SEC Prothromb Time International Ratio 1.0 RATIO Activated Partial Thromboplast Time 26.2 SEC Blood Urea Nitrogen 18 MG/DL Creatinine 1.20 MG/DL Random Glucose 128 MG/DL Total Protein 7.8 GM/DL Albumin 3.4 GM/DL Calcium Level 9.5 MG/DL Alkaline Phosphatase 86 U/L Aspartate Amino Transf (AST/SGOT) 24 U/L Alanine Aminotransferase (ALT/SGPT) 31 U/L Total Bilirubin 0.3 MG/DL Sodium Level 139 MEQ/L Potassium Level 3.9 MEQ/L Chloride Level 104 MEQ/L Carbon Dioxide Level 26.2 MEQ/L Anion Gap 9 MEQ/L Estimat Glomerular Filtration Rate 64 ML/MIN Total Creatine Kinase 165 U/L Creatine Kinase MB 3.9 NG/ML Troponin I LESS THAN 0.02 NG/ML B-Type Natriuretic Peptide 20 PG/ML MDM Medical Decision Making Medical Screen Exam Complete: Yes Emergency Medical Condition: Yes Medical Record Reviewed: Yes Differential Diagnosis Bronchitis, pneumonia, pneumothorax, PE, musculoskeletal strain Narrative Course Vital signs reviewed. CBC: WBC 10.1, hemoglobin 17.7, hematocrit 52.4, platelets 247. CMP is essentially unremarkable. Cardiac enzymes are negative. BNP is 20. Chest x-ray: No acute cardiopulmonary disease. CT pulmonary angiogram: CONCLUSION: 1. No evidence of pulmonary embolus. 2. Minimal pulmonary right lung emphysema. 3. Mild lower lobe atelectasis CT abdomen pelvis: CONCLUSION: 1. Prominent hepatic steatosis. 2. Bilateral rib fractures. There is evidence of bone bridging/healing on the right side rib fractures. Eighth ninth and 10th lateral/posterior rib fractures on the left are nonunited. Patient was made aware of all findings. These rib fractures are old. He was given 3 DuoNeb treatments and IV Solu-Medrol with improved respiratory status. Patient was provided morphine and then Dilaudid. He is requesting 1 more dose of pain medication prior to being discharged. He was extensively counseled on smoking cessation. He will be started on a Z-Jeronimo, prednisone, albuterol. He is stable for discharge home with outpatient follow-up with a primary care physician this week. I will given the information to the [facility]. He was advised on when to return to the emergency department. He verbalizes understanding and agreement with plan. Diagnosis Primary Impression: COPD exacerbation Additional Impressions: Bronchitis Rib fractures Qualified Codes: S22.43XS - Multiple fractures of ribs, bilateral, sequela Referrals: [facility] 3 days Primary Care Physician 3 days Additional Instructions: Follow-up with a primary care physician this week. Return to the emergency department for worsening symptoms or any other concerns. Scripts Azithromycin (Zithromax Z-Jeronimo) 250 Mg Dspk 250 MG PO DIRECTED for Infection, #1 DSPK 0 Refills 500 MG (2 tabs) day 1, then 1 tab days 2-5. Prov: Stevenson Callahan MD 12/19/17 Albuterol 18 GM Inh (Ventolin Hfa 18 GM Inh) 90 Mcg/Act Aer 2 PUFF INH Q4-6H Y for SHORTNESS OF BREATH, #1 INHALER 0 Refills Prov: Stevenson Callahan MD 12/19/17 Oxycodone-Acetaminophen (Percocet) 10-325 mg Tab 1 TAB PO Q6H Y for PAIN, #10 TAB 0 Refills Prov: Stevenson Callahan MD 12/19/17 Prednisone (Prednisone) 50 Mg Tab 50 MG PO DAILY for 5 Days, #5 TAB 0 Refills Prov: Stevenson Callahan MD 12/19/17 Disposition: 01 DISCHARGE HOME Condition: Stable Stevenson Callahan MD Dec 19, 2017 01:12
--- NOTE | 2017-12-19 01:21 | RADRPT ---
EXAM DATE/TIME: 12/19/2017 00:58 [facility] COMPARISON: No previous studies available for comparison. INDICATIONS : Shortness of breath. MEDICAL HISTORY : Chronic obstructive pulmonary disease. Asthma SURGICAL HISTORY : None. ENCOUNTER: Initial ACUITY: 1 day PAIN SCORE: 0/10 LOCATION: Bilateral chest FINDINGS: Single AP view of the chest. The lungs are clear. Cardiomediastinal silhouette within normal limits. No evidence of pleural effusion or pneumothorax. CONCLUSION: No acute cardiopulmonary disease identified. Jd Salter MD on December 19, 2017 at 1:19 Board Certified Radiologist. This report was verified electronically.
[2017-12-19] MEDS ORDERED: ONDANSETRON HCL 4 MG/2 ML VIAL IV PUSH ONE (01:30)
[2017-12-19 01:35] VITALS: O2SAT 96
[2017-12-19] MEDS: RESP: ALBUTEROL 2.5 MG/IPRATROPIUM 0.5 MG NEB (SCH) INH (01:38)
[2017-12-19 01:45] LABS: AUTOMATED NEUTROPHIL # 6.7 TH/MM3 (1.8-7.7); BASOPHIL # 0.1 TH/MM3 (0-0.2); BASOPHIL % 0.8 % (0.0-2.0); EOSINOPHIL # 0.4 TH/MM3 (0-0.4); EOSINOPHIL % 4.1 % (0.0-4.0); HEMATOCRIT 52.4 % (39.0-51.0); HEMOGLOBIN 17.7 GM/DL (13.0-17.0); LYMPH % 22.9 % (9.0-44.0); LYMPHOCYTE # 2.3 TH/MM3 (1.0-4.8); MEAN CELL VOLUME 92.2 FL (80.0-100.0); MEAN CORPUSCULAR HEMOGLOBIN 31.1 PG (27.0-34.0); MEAN CORPUSCULAR HGB CONC 33.7 % (32.0-36.0); MONO % 5.6 % (0.0-8.0); MONOCYTE # 0.6 TH/MM3 (0-0.9); NEUT % 66.6 % (16.0-70.0); PLATELET COUNT 247 TH/MM3 (150-450); RED BLOOD COUNT 5.68 MIL/MM3 (4.50-5.90); WHITE BLOOD COUNT 10.1 TH/MM3 (4.0-11.0)
[2017-12-19 01:52] LABS: PROTHROMBIN TIME - PATIENT 10.4 SEC (9.8-11.6)
[2017-12-19 02:14] LABS: ALKALINE PHOSPHATASE 86 U/L (45-117); TOTAL BILIRUBIN ADULT 0.3 MG/DL (0.2-1.0); TOTAL PROTEIN 7.8 GM/DL (6.4-8.2); TROPONIN I LESS THAN 0.02 NG/ML (0.02-0.05)
[2017-12-19 02:15] LABS: ALBUMIN 3.4 GM/DL (3.4-5.0); ALT (GPT) 31 U/L (12-78); AST (GOT) 24 U/L (15-37); BICARBONATE 26.2 MEQ/L (21.0-32.0); BLOOD UREA NITROGEN 18 MG/DL (7-18); CALCIUM 9.5 MG/DL (8.5-10.1); CHLORIDE 104 MEQ/L (98-107); GLOMERULAR FILTRATION RATE 64 ML/MIN (>89); GLUCOSE,RANDOM 128 MG/DL (74-106); SODIUM (NA) 139 MEQ/L (136-145)
[2017-12-19] MEDS ORDERED: HYDROmorphone HCL PF 2 MG/ML VIAL IV PUSH ONE ×2 (02:45→04:15)
[2017-12-19 03:30] VITALS: BP 149/89; PULSE 93; RESP 21; O2SAT 96
--- NOTE | 2017-12-19 03:34 | RADRPT ---
EXAM DATE/TIME: 12/19/2017 03:05 [facility] COMPARISON: No previous studies available for comparison. INDICATIONS : Cough. IV CONTRAST: 100 cc Omnipaque 350 (iohexol) IV ; Cumulative dose for multiple exams. RADIATION DOSE: 9.07 CTDIvol (mGy) ; Patient motion MEDICAL HISTORY : Chronic obstructive pulmonary disease. SURGICAL HISTORY : None. ENCOUNTER: Initial ACUITY: 1 day PAIN SCALE: 5/10 LOCATION: Left Paraspinal TECHNIQUE: Volumetric scanning of the chest was performed using a pulmonary embolism protocol MIP images were re constructed. Using automated exposure control and adjustment of the mA and/or kV according to patien t size, radiation dose was kept as low as reasonably achievable to obtain optimal diagnostic quality images. DICOM format image data is available electronically for review and comparison. Follow-up recommendations for detected pulmonary nodules are based at a minimum on nodule size and pa tient risk factors according to Fleischner Society Guidelines. FINDINGS: PULMONARY ARTERIES: No filling defects are seen in the pulmonary arteries through the segmental level. LUNGS: Minimal pulmonary parenchyma emphysema. Mild bilateral lower lobe atelectasis. PLEURAE: There is no pleural thickening or pleural effusion. MEDIASTINUM: Multiple subcentimeter mediastinal lymph nodes are likely reactive. Thoracic aorta diameter within no rmal limits. MUSCULOSKELETAL: Within normal limits for patient age. MISCELLANEOUS: The visualized upper abdominal organs demonstrate no acute abnormality. CONCLUSION: 1. No evidence of pulmonary embolus. 2. Minimal pulmonary right lung emphysema. 3. Mild lower lobe atelectasis Jd Salter MD on December 19, 2017 at 3:23 Board Certified Radiologist. This report was verified electronically.
--- NOTE | 2017-12-19 03:44 | RADRPT ---
EXAM DATE/TIME: 12/19/2017 03:18 [facility] COMPARISON: No previous studies available for comparison. INDICATIONS : Left back pain. IV CONTRAST: 100 cc Omnipaque 350 (iohexol) IV ; Cumulative dose for multiple exams. ORAL CONTRAST: No oral contrast ingested. RADIATION DOSE: 29.38 CTDIvol (mGy) ; Patient body habitus MEDICAL HISTORY : Chronic obstructive pulmonary disease. SURGICAL HISTORY : None. ENCOUNTER: Initial ACUITY: 1 day PAIN SCALE: 10/10 LOCATION: Bilateral abdomen TECHNIQUE: Volumetric scanning of the abdomen and pelvis was performed. Using automated exposure control and adjustment of the mA and/or kV according to patient size, radiation dose was kept as low as reasonably achievable to obtain optimal diagnostic quality images. DICOM format image data is av ailable electronically for review and comparison. FINDINGS: LOWER LUNGS: Mild right lower lobe atelectasis. LIVER: Prominent diffuse hepatic steatosis. No focal masses identified. Gallbladder is collapsed. SPLEEN: Upper limits of normal in size measuring 12 cm in craniocaudal dimension. PANCREAS: Within normal limits. KIDNEYS: Contrast seen symmetrically in the collecting systems. Kidneys within normal limits. ADRENAL GLANDS: Within normal limits. VASCULAR: There is no aortic aneurysm. BOWEL/MESENTERY: No evidence of bowel dilatation. No free air or free fluid. Appendix within norm al limits. ABDOMINAL WALL: Within normal limits. RETROPERITONEUM: There is no lymphadenopathy. BLADDER: Contrast in the dependent portion of bladder. REPRODUCTIVE: Within normal limits. INGUINAL: There is no lymphadenopathy or hernia. MUSCULOSKELETAL: Bilateral old rib fractures. Eighth ninth and 10th rib fractures on the left are nonunited Degenerative findings lumbar spine. CONCLUSION: 1. Prominent hepatic steatosis. 2. Bilateral rib fractures. There is evidence of bone bridging/healing on the right side rib fracture s. Eighth ninth and 10th lateral/posterior rib fractures on the left are nonunited. Jd Salter MD on December 19, 2017 at 3:35 Board Certified Radiologist. This report was verified electronically.
[2017-12-19] MEDS ORDERED: PRED50 PO (04:07)
[2017-12-19] MEDS ORDERED: PERC10TA27 PO (04:07)
[2017-12-19] MEDS ORDERED: VENTAER INH (04:07)
[2017-12-19] MEDS ORDERED: ZITHTAB PO (04:07)
== END 2017-12-19 04:58 | disposition home or self-care (01) ==
LOC: NEPE 22:41
DX: J44.1 Chronic obstructive pulmonary disease with (acute) exacerbation (principal); J40 Bronchitis, not specified as acute or chronic; S22.43XS Multiple fractures of ribs, bilateral, sequela; J43.9 Emphysema, unspecified; J98.11 Atelectasis; K76.0 Fatty (change of) liver, not elsewhere classified; F17.210 Nicotine dependence, cigarettes, uncomplicated; F31.9 Bipolar disorder, unspecified; X58.XXXS Exposure to other specified factors, sequela
CPT/HCPCS: 71045; 71275; 74177; 80053; 82550; 82552; 83880; 84484; 85025; 85610; 85730; 87804; 94640; 94664; 96374; 96375; 96376; 99285; J1170; J2270; J2405; J2930; Q9967

== ENCOUNTER 2017-12-24 15:29 | Emergency (ER) | payer OTHER ==
[~2017-12-24] VITALS: Ht 182.9 cm; Wt 190.0 kg
[~2017-12-24 15:29] MED LIST changes: -HYDR-3533 PO; +PERC10TA27 PO; +PRED50 PO; +VENTAER INH; +ZITHTAB PO
[2017-12-24 15:37] VITALS: BP 145/100; PULSE 103; RESP 30; TEMP 98.3; O2SAT 94
[2017-12-24 15:57] VITALS: BP 134/82; PULSE 92; RESP 24; TEMP 98; O2SAT 96
[2017-12-24] MEDS ORDERED: PROCHLORPERAZINE INJ 10 MG/2 ML VIAL IV PUSH ONE (16:00)
[2017-12-24] MEDS ORDERED: KETOROLAC TROMETHAMINE 30 MG/ML (IVP) VIAL IV PUSH ONE (16:00)
[2017-12-24] MEDS ORDERED: ORPHENADRINE INJ 60 MG/2 ML AMP IV ONE (16:00)
--- NOTE | 2017-12-24 16:05 | PD ---
HPI Chief Complaint: Back/ Neck Pain or Injury Time Seen by Provider: 15:50 Travel History International Travel<30 days: No Contact w/Intl Traveler<30days: No Traveled to known affect area: No History of Present Illness HPI Patient is a 47-year-old male presenting to emerge from for evaluation of left mid to lower back pain. Patient states he has been coughing for the last 2 months, the coughing is what initially started the back pain. He states he was diagnosed with bronchitis on 19 December. Patient states that he currently smokes 1 pack per cigarettes daily. He reports subjective fever and chills. He states he felt short of breath because he cannot "clear his lungs" because of the pain. Patient reports his pain is 8 out of 10. He stated that he was given a prescription for Percocet, he took the last dose this morning and pain exacerbated after that. Symptom onset appears gradual, symptoms are moderate to severe in nature. Symptoms are exacerbated with coughing. He reports that the pain is shooting. PFSH Past Medical History Asthma: Yes Bipolar Disorder: Yes COPD: Yes Psychiatric: Yes (PTSD) Schizophrenia: Yes Tetanus Vaccination: > 5 Years Influenza Vaccination: No Past Surgical History Other Surgery: Yes (BILAT FEET ) Social History Alcohol Use: No (DENIES) Tobacco Use: Yes (1PPD) Substance Use: Yes (WEED OCCASSIONALLY) Allergies-Medications (Allergen,Severity, Reaction): Coded Allergies: No Known Allergies (Verified Allergy, Unknown, 12/24/17) Reported Meds & Prescriptions Reported Meds & Active Scripts Active Flexeril (Cyclobenzaprine HCl) 10 Mg Tab 10 Mg PO TID PRN Ketorolac (Ketorolac Tromethamine) 10 Mg Tab 10 Mg PO TID Zithromax Z-Jeronimo (Azithromycin) 250 Mg Dspk 250 Mg PO DIRECTED 500 MG (2 tabs) day 1, then 1 tab days 2-5. Ventolin Hfa 18 GM Inh (Albuterol Sulfate) 90 Mcg/Act Aer 2 Puff INH Q4-6H PRN Percocet (Oxycodone-Acetaminophen) 10-325 mg Tab 1 Tab PO Q6H PRN Prednisone 50 Mg Tab 50 Mg PO DAILY 5 Days Lidocaine Patch 12 HR (Lidocaine) 5 % Patch 1 Patch TOPICAL DAILY PRN Remove patch after 12 hours Ibuprofen 800 Mg Tab 800 Mg PO Q6HR PRN Tramadol (Tramadol HCl) 50 Mg Tab 50 Mg PO Q6H PRN Reported Tramadol (Tramadol HCl) 50 Mg Tab 50 Mg PO Q4H PRN Review of Systems Except as stated in HPI: all other systems reviewed are Neg General / Constitutional: Positive: Fever, Chills HENT: No: Headaches Cardiovascular: No: Chest Pain or Discomfort Respiratory: Positive: Cough, Shortness of Breath, Pleuritic Pain Gastrointestinal: No: Nausea, Vomiting, Abdominal Pain Musculoskeletal: Positive: Myalgias, Cramping, Pain Neurologic: No: Weakness, Dizziness, Syncope, Focal Abnormalities Physical Exam Narrative GENERAL: Obese, well-developed, alert male. Appears uncomfortable, no acute distress. SKIN: Warm and dry. HEAD: Atraumatic. Normocephalic. EYES: Pupils equal and round. No scleral icterus. No injection or drainage. ENT: No nasal bleeding or discharge. Mucous membranes pink and moist. NECK: Trachea midline. No JVD. CARDIOVASCULAR: Tachycardic RESPIRATORY: No accessory muscle use. Tachypneic. Coarse breath sounds bilaterally. GASTROINTESTINAL: Abdomen soft, non-tender, nondistended. Hepatic and splenic margins not palpable. MUSCULOSKELETAL: Extremities without clubbing, cyanosis, or edema. No obvious deformities. Tenderness to palpation paraspinal musculature in the lumbar region on the left side. NEUROLOGICAL: Awake and alert. No obvious cranial nerve deficits. Motor grossly within normal limits. Five out of 5 muscle strength in the arms and legs. Normal speech. PSYCHIATRIC: Appropriate mood and affect; insight and judgment normal. Data Data Last Documented VS Orders Orders Ketorolac Inj (Toradol Inj) (12/24/17 16:00) Orphenadrine Inj (Norflex Inj) (12/24/17 16:00) Iv Access Insert/Monitor (12/24/17 15:50) Chest, Single Ap (12/24/17 ) Prochlorperazine Inj (Compazine Inj) (12/24/17 16:00) Basic Metabolic Panel (Bmp) (12/24/17 16:51) B-Type Natriuretic Peptide (12/24/17 16:51) Complete Blood Count With Diff (12/24/17 16:51) Acetaminophen 1000 Mg/100 Ml (Ofirmev 10 (12/24/17 17:15) Spine, Lumbar - Ltd (Ap & Lat) (12/24/17 ) Mri L Spine W/O Contrast (12/24/17 ) Mri T Spine W/O Contrast (12/24/17 ) Morphine Inj (Morphine Inj) (12/24/17 19:45) Ketorolac (Toradol) (12/24/17 21:15) Cyclobenzaprine (Flexeril) (12/24/17 21:15) Ed Discharge Order (12/24/17 21:04) Labs Laboratory Tests Test 12/24/17 17:10 White Blood Count 11.6 TH/MM3 Red Blood Count 4.83 MIL/MM3 Hemoglobin 15.2 GM/DL Hematocrit 44.2 % Mean Corpuscular Volume 91.5 FL Mean Corpuscular Hemoglobin 31.4 PG Mean Corpuscular Hemoglobin Concent 34.4 % Red Cell Distribution Width 15.4 % Platelet Count 193 TH/MM3 Mean Platelet Volume 8.3 FL Neutrophils (%) (Auto) 74.2 % Lymphocytes (%) (Auto) 17.1 % Monocytes (%) (Auto) 6.0 % Eosinophils (%) (Auto) 1.6 % Basophils (%) (Auto) 1.1 % Neutrophils # (Auto) 8.6 TH/MM3 Lymphocytes # (Auto) 2.0 TH/MM3 Monocytes # (Auto) 0.7 TH/MM3 Eosinophils # (Auto) 0.2 TH/MM3 Basophils # (Auto) 0.1 TH/MM3 CBC Comment DIFF FINAL Differential Comment Blood Urea Nitrogen 17 MG/DL Creatinine 0.96 MG/DL Random Glucose 105 MG/DL Calcium Level 8.5 MG/DL Sodium Level 138 MEQ/L Potassium Level 4.5 MEQ/L Chloride Level 106 MEQ/L Carbon Dioxide Level 27.0 MEQ/L Anion Gap 5 MEQ/L Estimat Glomerular Filtration Rate 83 ML/MIN B-Type Natriuretic Peptide 60 PG/ML MDM Medical Decision Making Medical Screen Exam Complete: Yes Emergency Medical Condition: Yes Medical Record Reviewed: Yes Interpretation(s) Last Impressions Thoracic Spine MRI 12/24/17 0000 Signed Impressions: Service Date/Time: Sunday, December 24, 2017 19:45 - CONCLUSION: 1. Mild syringomyelia at the T6 level extending over about 1.5 cm. 2. Prominent dorsal fluid signal at the T7-8 level with some flattening of the thoracic cord, possibly an arachnoid cyst. 3. Mild to moderate degenerative disc disease. No discrete disc protrusions identified. Ata Jordan MD Lumbar Spine X-Ray 12/24/17 0000 Signed Impressions: Service Date/Time: Sunday, December 24, 2017 17:34 - CONCLUSION: 1. Mild compression deformities involving T11 and T12 of indeterminate ages. 2. No acute compression fracture, spondylolisthesis or spondylolysis. 3. Degenerative changes throughout the lumbar lower thoracic spine. Simeon Bear MD Lumbar Spine MRI 12/24/17 0000 Signed Impressions: Service Date/Time: Sunday, December 24, 2017 19:45 - CONCLUSION: 1. No acute finding lumbar spine MR. No bony canal stenosis and no direct nerve root compression. Ata Jordan MD Chest X-Ray 12/24/17 0000 Signed Impressions: Service Date/Time: Sunday, December 24, 2017 16:07 - CONCLUSION: 1. Mild diffuse interstitial prominence may reflect mild positive fluid balance. Randy Forte MD Vital Signs Date Time Temp Pulse Resp B/P (MAP) Pulse Ox O2 Delivery O2 Flow Rate FiO2 12/24/17 15:57 98.0 92 24 134/82 (99) 96 Room Air 12/24/17 15:53 96 24 12/24/17 15:37 98.3 103 30 145/100 (115) 94 Differential Diagnosis Muscle strain versus muscle spasm versus radiculopathy versus pneumonia versus kidney stone versus other Narrative Course Patient is a 47-year-old male presenting to emerge from for evaluation of left- sided lower back pain after coughing spells. Patient is tachycardic and tachypneic on arrival, he is actively carrying on, crying. Imaging medication ordered. IV access established, patient placed on telemetry monitoring continuous pulse oximetry. Old records reviewed. Patient has been here in the emergency department several times over the last 8 months with similar complaints related to the left back secondary to coughing spells. Patient was given Toradol and Norflex and Compazine. MRI of the thoracic spine shows mild syringomyelia at the T6 level extending over about 1.5 cm. 2. Prominent dorsal fluid signal at the T7-8 level with some flattening of the thoracic cord, possibly an arachnoid cyst. 3. Mild to moderate degenerative disc disease. No discrete disc protrusions identified. Chest x-ray shows mild diffuse interstitial prominence which may reflect mild positive fluid balance. BNP was assessed, is currently 60 which is up from prior result a few days ago when it was 20. CBC with no acute findings Lumbar spine MRI is negative for acute findings X-ray lumbar spine shows mild compression deformities involving T11 and T12 of indeterminate ages. No acute compression fracture. Degenerative changes throughout the lower thoracic lumbar spine. Discussed findings with Dr. Villarreal, neurosurgery. 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 He recommended patient avoid bending or lifting , attempt weight loss and take anti-inflammatory medications. Patient was advised on findings, is encouraged to follow-up with primary doctor. He was encouraged to engage in weight loss activities. He was encouraged return to emergency department any worsening symptoms. Diagnosis Primary Impression: Back pain Qualified Codes: M54.9 - Dorsalgia, unspecified Additional Impressions: COPD (chronic obstructive pulmonary disease) Qualified Codes: J44.9 - Chronic obstructive pulmonary disease, unspecified Costochondritis, acute Referrals: Primary Care Physician 3 days Patient Instructions: Back Pain (ED), COPD (Chronic Obstructive Pulmonary Disease) (ED), Costochondritis (ED), General Instructions, Narcotic given in the ED Additional Instructions: Follow-up with your primary doctor Avoid aggravating or exacerbating activities Take medications as directed Apply warm heat to the affected area, continue gentle range of motion exercises , avoid exacerbating activities Avoid tobacco use Engage in activities and diet that will encourage weight loss Return to emergency department for any new or worsening symptoms Med/Other Pt SpecificInfo: Prescription(s) given Scripts Cyclobenzaprine (Flexeril) 10 Mg Tab 10 MG PO TID Y for MUSCLE SPASM, #30 TAB 0 Refills Prov: Ana Clark 12/24/17 Ketorolac (Ketorolac) 10 Mg Tab 10 MG PO TID for Pain Management, #30 TAB 0 Refills Prov: Ana Clark 12/24/17 Disposition: 01 DISCHARGE HOME Condition: Stable Ana Clark Dec 24, 2017 16:05
--- NOTE | 2017-12-24 16:49 | RADRPT ---
EXAM DATE/TIME: 12/24/2017 16:07 [facility] COMPARISON: CHEST SINGLE AP, December 19, 2017, 0:58. INDICATIONS : Left posterior rib pain. MEDICAL HISTORY : Chronic obstructive pulmonary disease. Asthma SURGICAL HISTORY : None. ENCOUNTER: Initial ACUITY: 4 - 6 days PAIN SCORE: 10/10 LOCATION: Bilateral chest FINDINGS: Mild diffuse interstitial prominence. Cardiomediastinal contours are stable. Bony thorax is intact. S pecifically, no significantly displaced rib fractures are noted. CONCLUSION: 1. Mild diffuse interstitial prominence may reflect mild positive fluid balance. Randy Forte MD on December 24, 2017 at 16:46 Board Certified Radiologist. This report was verified electronically.
[2017-12-24 17:09] VITALS: BP 126/85; PULSE 74; RESP 22; TEMP 97.9; O2SAT 95
[2017-12-24] MEDS ORDERED: ACETAMINOPHEN 1000 MG/100 ML 100 ML IV ONE (17:15)
[2017-12-24 17:25] LABS: AUTOMATED NEUTROPHIL # 8.6 TH/MM3 (1.8-7.7); BASOPHIL # 0.1 TH/MM3 (0-0.2); BASOPHIL % 1.1 % (0.0-2.0); EOSINOPHIL # 0.2 TH/MM3 (0-0.4); EOSINOPHIL % 1.6 % (0.0-4.0); HEMATOCRIT 44.2 % (39.0-51.0); HEMOGLOBIN 15.2 GM/DL (13.0-17.0); LYMPH % 17.1 % (9.0-44.0); MEAN CELL VOLUME 91.5 FL (80.0-100.0); MEAN CORPUSCULAR HEMOGLOBIN 31.4 PG (27.0-34.0); MEAN CORPUSCULAR HGB CONC 34.4 % (32.0-36.0); MEAN PLATELET VOLUME 8.3 FL (7.0-11.0); MONOCYTE # 0.7 TH/MM3 (0-0.9); NEUT % 74.2 % (16.0-70.0); PLATELET COUNT 193 TH/MM3 (150-450); RED BLOOD COUNT 4.83 MIL/MM3 (4.50-5.90); RED CELL DISTRIBUTION WIDTH 15.4 % (11.6-17.2); WHITE BLOOD COUNT 11.6 TH/MM3 (4.0-11.0)
[2017-12-24 17:51] LABS: CALCIUM 8.5 MG/DL (8.5-10.1); CREATININE 0.96 MG/DL (0.60-1.30)
--- NOTE | 2017-12-24 17:56 | RADRPT ---
EXAM DATE/TIME: 12/24/2017 17:34 [facility] COMPARISON: No previous studies available for comparison. INDICATIONS : Low back pain MEDICAL HISTORY : Chronic obstructive pulmonary disease. SURGICAL HISTORY : None. ENCOUNTER: Initial ACUITY: 1 day PAIN SCORE: 10/10 LOCATION: Lumbar spine. FINDINGS: Mild compression deformities are noted involving T11 and T12 of indeterminate ages. There is no acute compression fracture, spondylolisthesis or spondylolysis of the lumbar spine. Degenerative changes a re noted throughout the lumbar and lower thoracic spine. CONCLUSION: 1. Mild compression deformities involving T11 and T12 of indeterminate ages. 2. No acute compression fracture, spondylolisthesis or spondylolysis. 3. Degenerative changes throughout the lumbar lower thoracic spine. Simeon Bear MD on December 24, 2017 at 17:53 Board Certified Radiologist. This report was verified electronically.
[2017-12-24 18:03] VITALS: RESP 17
[2017-12-24] MEDS ORDERED: MORPHINE SULFATE 4 MG/ML INJ IV PUSH ONE (19:45)
--- NOTE | 2017-12-24 20:30 | RADRPT ---
EXAM DATE/TIME: 12/24/2017 19:45 [facility] COMPARISON: No previous studies available for comparison. INDICATIONS : Pain. MEDICAL HISTORY : Chronic obstructive pulmonary disease. SURGICAL HISTORY : None. ENCOUNTER: Initial ACUITY: 1 week PAIN SCORE: 5/10 LOCATION: Paraspinal TECHNIQUE: Multiplanar multisequence MRI of the thoracic spine was performed. FINDINGS: There is abnormal signal in the central cord at T6 probably representing a mild syrinx. There is a pr ominent CSF signal fluid in the dorsal aspect of the cord with some mild flattening of the cord at T7 -8. Cannot exclude an arachnoid cyst. There is degenerative disc disease in the thoracic spine to a moderate degree. No fracture or spondyl olisthesis. CONCLUSION: 1. Mild syringomyelia at the T6 level extending over about 1.5 cm. 2. Prominent dorsal fluid signal at the T7-8 level with some flattening of the thoracic cord, possibl y an arachnoid cyst. 3. Mild to moderate degenerative disc disease. No discrete disc protrusions identified. Ata Jordan MD on December 24, 2017 at 20:24 Board Certified Radiologist. This report was verified electronically.
--- NOTE | 2017-12-24 20:34 | RADRPT ---
EXAM DATE/TIME: 12/24/2017 19:45 [facility] COMPARISON: No previous studies available for comparison. INDICATIONS : Pain. MEDICAL HISTORY : Chronic obstructive pulmonary disease. SURGICAL HISTORY : None. ENCOUNTER: Initial ACUITY: 1 week PAIN SCORE: 5/10 LOCATION: Paraspinal TECHNIQUE: Multiplanar multisequence MRI of the lumbar spine was performed without contrast. FINDINGS: There is mild to moderate degenerative disc disease of the lumbar spine. There is no bony canal steno sis. No discrete disc protrusions or direct nerve root compression is identified. There is some edema tous changes in the posterior subcutaneous fat. CONCLUSION: 1. No acute finding lumbar spine MR. No bony canal stenosis and no direct nerve root compression. Ata Jordan MD on December 24, 2017 at 20:29 Board Certified Radiologist. This report was verified electronically.
[2017-12-24] MEDS ORDERED: KETO10 PO (20:59)
[2017-12-24] MEDS ORDERED: CYCL10TA PO (20:59)
[2017-12-24] MEDS ORDERED: KETOROLAC TROMETHAMINE 10 MG TAB PO ONE (21:15)
[2017-12-24] MEDS ORDERED: CYCLOBENZAPRINE HCL 10 MG TAB PO ONE (21:15)
== END 2017-12-24 21:49 | disposition home or self-care (01) ==
LOC: NEPC 15:29
DX: M54.9 Dorsalgia, unspecified (principal); J44.9 Chronic obstructive pulmonary disease, unspecified; M94.0 Chondrocostal junction syndrome [Tietze]; G95.0 Syringomyelia and syringobulbia; R06.82 Tachypnea, not elsewhere classified; R00.0 Tachycardia, unspecified; F17.210 Nicotine dependence, cigarettes, uncomplicated; F31.9 Bipolar disorder, unspecified; F20.9 Schizophrenia, unspecified; F43.10 Post-traumatic stress disorder, unspecified
CPT/HCPCS: 71045; 72100; 72146; 72148; 80048; 83880; 85025; 96374; 96375; 99285; J0131; J0780; J1885; J2270; J2360

== ENCOUNTER 2018-02-17 12:16 | Emergency (ER) | payer OTHER, MEDICAID ==
[~2018-02-17] VITALS: Ht 182.9 cm; Wt 169.0 kg
[~2018-02-17 12:16] MED LIST changes: +CYCL10TA PO; +KETO10 PO
[2018-02-17 12:28] VITALS: BP 127/69; PULSE 76; RESP 20; TEMP 98.9; O2SAT 93
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
[2018-02-17 14:45] VITALS: O2SAT 93
--- NOTE | 2018-02-17 14:53 | RADRPT ---
EXAM DATE: 02/17/2018 2:38 PM EDT AGE/SEX: 47 years / Male INDICATIONS: Short of breath CLINICAL DATA: This is the patient's initial encounter. Patient reports that signs and symptoms have been present for 1 day and indicates a pain score of 0/10. MEDICAL/SURGICAL HISTORY: None. None. COMPARISON: [facility] [place], CHEST SINGLE AP, 12/24/2017. [facility] [place], CHEST SINGLE AP, 12/19/2017. [facility] [place], CT THORAX W CONTRAST, 02/17/2018. . FINDINGS: Portable AP view of the chest demonstrates a normal-sized cardiac silhouette. There is stable interst itial prominence in the lower lung zones bilaterally. No pleural effusion or pneumothorax is identifi ed. The bones and soft tissues demonstrate no acute abnormality. CONCLUSION: Stable chest x-ray with mild interstitial prominence in the lower lung zones. This appearance is giuliana lar to the prior 2 examinations suggesting against an acute process. Electronically signed by: Hector Brambila MD 02/17/2018 2:51 PM EDT
[2018-02-17 15:13] VITALS: BP 142/85; PULSE 63; RESP 15; O2SAT 96
[2018-02-17] MEDS ORDERED: PROMETHAZINE INJ 25 MG/ML VIAL IM ONE (15:30)
--- NOTE | 2018-02-17 15:30 | PD ---
Physical Exam Narrative GENERAL: Obese white male in no acute distress SKIN: Warm and dry. HEAD: Atraumatic. Normocephalic. EYES: Pupils equal and round. No scleral icterus. No injection or drainage. ENT: No nasal bleeding or discharge. Mucous membranes pink and moist. NECK: Trachea midline. No JVD. CARDIOVASCULAR: Regular rate and rhythm. RESPIRATORY: No accessory muscle use. Clear to auscultation. Breath sounds equal bilaterally. GASTROINTESTINAL: Abdomen soft, non-tender, nondistended. MUSCULOSKELETAL: Extremities without clubbing, cyanosis, or edema. No obvious deformities. NEUROLOGICAL: Awake and alert. No obvious cranial nerve deficits. Motor grossly within normal limits. Five out of 5 muscle strength in the arms and legs. Normal speech. PSYCHIATRIC: ANGRY, CURSING AT FAMILY AND STAFF.....Appropriate mood and affect ; insight and judgment normal. Data Data Last Documented VS Vital Signs Date Time Temp Pulse Resp B/P (MAP) Pulse Ox O2 Delivery O2 Flow Rate FiO2 02/17/18 16:03 02/17/18 15:13 63 15 96 Room Air 02/17/18 12:28 98.9 Orders Orders Electrocardiogram (02/17/18 14:21) Complete Blood Count With Diff (02/17/18 14:21) Comprehensive Metabolic Panel (02/17/18 14:21) Ckmb (Isoenzyme) Profile (02/17/18 14:21) Troponin I (02/17/18 14:21) Prothrombin Time / Inr (Pt) (02/17/18 14:21) Act Partial Throm Time (Ptt) (02/17/18 14:21) Lipase (02/17/18 14:21) Magnesium (Mg) (02/17/18 14:21) Thyroid Stimulating Hormone (02/17/18 14:21) Chest, Single Ap (02/17/18 14:21) Alcohol (Ethanol) (02/17/18 14:21) Salicylates (Aspirin) (02/17/18 14:21) Tylenol (Acetaminophen) (02/17/18 14:21) Promethazine Inj (Phenergan Inj) (02/17/18 15:30) CKMB (02/17/18 14:45) CKMB% (02/17/18 14:45) Labs Laboratory Tests Test 02/17/18 14:45 Blood Urea Nitrogen 14 MG/DL Creatinine 0.97 MG/DL Random Glucose 122 MG/DL Total Protein 7.3 GM/DL Albumin 3.3 GM/DL Calcium Level 8.1 MG/DL Magnesium Level 2.3 MG/DL Alkaline Phosphatase 80 U/L Aspartate Amino Transf (AST/SGOT) 103 U/L Alanine Aminotransferase (ALT/SGPT) 105 U/L Total Bilirubin 0.3 MG/DL Sodium Level 142 MEQ/L Potassium Level 4.3 MEQ/L Chloride Level 111 MEQ/L Carbon Dioxide Level 24.0 MEQ/L Anion Gap 7 MEQ/L Estimat Glomerular Filtration Rate 82 ML/MIN Total Creatine Kinase 175 U/L Creatine Kinase MB 3.7 NG/ML Troponin I 0.03 NG/ML Lipase 81 U/L Thyroid Stimulating Hormone 3rd Gen 1.290 uIU/ML Salicylates Level 5.8 MG/DL Acetaminophen Level LESS THAN 2.0 MCG/ML Ethyl Alcohol Level LESS THAN 3 MG/DL MDM Medical Record Reviewed: Yes Supervised Visit with KIRSTEN: Yes Differential Diagnosis Intoxication versus overdose versus MVC versus contusions versus fractures Narrative Course Patient became verbally abusive and had family at his bedside altogether was discussed as he wanted to go home before all his studies were completed. yelling expletives at his family as well as to nursing staff, stating that he doesn't want to be here anymore and just needs his pain medications. Patient refused having any further CT scans or any other studies or any repeat blood work. Patient just wants to go home and just appears to be very upset about the fact that he was given Narcan and had his Percocet reversed. REFUSED TO HAVE ANY OTHER CARE UNLESS HE RECEIVED NARCOTIC PAIN MEDICATIONS, ADVISED THAT HE NEEDS HIS CAT SCAN'S TO EVALUATE IF ANY INTERNAL INJURIES OCCURRED BUT THAT THOSE COULD NOT BE ASSESSED BECAUSE HE IS REFUSING CARE. PATIENT IS NOT ALTERED AND ACCORDING TO AND FAMILY AT BEDSIDE, HE IS AT HIS BASELINE AND THAT THIS IS HIS USUAL DEMEANOR . patient stated that he just had a mucous plug and that's why he "passed out" and that he was not overdose on percocet (however per ems he was poorly responsive and became normal/responsive after narcan given). AMA: The risks of leaving against medical advice without further evaluation treatment were discussed with the patient. These risks include cardiac dysfunction, cardiac dysrhythmia, possible heart attack, possible stroke or . The patient indicated understanding of these risks and appeared to have the capacity to make this decision. Diagnosis Primary Impression: AMA Patient Instructions: Against Medical Advice (ED), General Instructions Disposition: 07 AGAINST MEDICAL ADVICE Condition: John Parikh MD Feb 17, 2018 15:30
[2018-02-17 15:31] LABS: ALBUMIN 3.3 GM/DL (3.4-5.0); CALCIUM 8.1 MG/DL (8.5-10.1); CHLORIDE 111 MEQ/L (98-107); CREATININE 0.97 MG/DL (0.60-1.30); GLOMERULAR FILTRATION RATE 82 ML/MIN (>89); GLUCOSE,RANDOM 122 MG/DL (74-106); MAGNESIUM 2.3 MG/DL (1.5-2.5); SODIUM (NA) 142 MEQ/L (136-145)
[2018-02-17 15:40] LABS: ALKALINE PHOSPHATASE 80 U/L (45-117); ALT (GPT) 105 U/L (12-78); AST (GOT) 103 U/L (15-37); BLOOD UREA NITROGEN 14 MG/DL (7-18); TOTAL BILIRUBIN ADULT 0.3 MG/DL (0.2-1.0); TOTAL PROTEIN 7.3 GM/DL (6.4-8.2); TROPONIN I 0.03 NG/ML (0.02-0.05)
[2018-02-17 15:46] LABS: ACETAMINOPHEN LESS THAN 2.0 MCG/ML (10.0-30.0)
--- NOTE | 2018-02-18 15:26 | EKG ---
Date Performed: 02/17/2018 Time Performed: 15:13:34 PTAGE: 47 years EKG: SINUS BRADYCARDIA BORDERLINE ECG NO PREVIOUS TRACING DOCTOR: Johnnie Estrada Interpretating Date/Time 02/18/2018 15:24:21
== END 2018-02-17 16:09 | disposition left against medical advice (07) ==
LOC: NEDAMB 12:16 → NEPD 16:09
DX: M54.9 Dorsalgia, unspecified (principal); G89.29 Other chronic pain; R06.02 Shortness of breath; R00.1 Bradycardia, unspecified; J44.9 Chronic obstructive pulmonary disease, unspecified; F31.9 Bipolar disorder, unspecified; J45.909 Unspecified asthma, uncomplicated; F43.10 Post-traumatic stress disorder, unspecified; V47.5XXA Car driver injured in collision with fixed or stationary object in traffic accident, initial encounter
CPT/HCPCS: 71045; 80053; 80307; 82550; 82552; 83690; 83735; 84443; 84484; 93005; 96372; 99285; J2550

== ENCOUNTER 2018-03-30 19:26 | Inpatient (IN) ==
[2018-03-30] MEDS ORDERED: Aspirin 325 MG Tablet PO ONE (19:41)
--- NOTE | 2018-03-30 19:44 | ED ---
HPI General Chief Complaint: Chest Pain Stated Complaint: Pain Time Seen by Provider: 03/30/18 19:41 Source: patient and EMS Mode of arrival: EMS Limitations: no limitations History of Present Illness HPI narrative: 47-year-old male patient with history of COPD, smoking, presents to the ER today for 1 day history of left sided chest pains or radiation in the left arm, currently a 5 out of 10, states that it felt better when EMS was given him nitroglycerin, states the pain is pressure-like and constant. He denies any shortness of breath, fevers, nausea, vomiting, or other symptoms. He states he was here last week and treated with COPD. Modifying Factors: None Associated Signs & Symptoms: Left-sided chest pain Risk Factors: None Complete Quality Measures for STEMI Alert Patients Related Data Home Medications Medication Instructions Recorded Confirmed No Known Home Medications 03/30/18 03/30/18 Allergies Allergy/AdvReac Type Severity Reaction Status Date / Time No Known Allergies Allergy Verified 03/30/18 19:37 Review of Systems Except as stated in HPI: all other systems reviewed are negative [facility] Medical History Medical History Asthma (Acute) Social History Social History Substance History: Active Abuse Second Hand Smoke Exposure: No Smoking Status: Current every day smoker Tobacco Type: Cigarettes How Often Do You Have a Drink Containing Alcohol: 2 to 4 times a month Recent Travel in [facility] within the Last 8 Weeks: No Recent Out of Country Travel within the Last 8 Weeks: No Substance Abuse Detail Marijuana: Substance Use Status: Active Substance Frequency: once a month Immunization History Tetanus Immunization: <5 Years Hx Influenza Vaccine This Season: Yes Exam Narrative Exam Narrative: GENERAL: Well-developed obese middle-aged white male patient currently in mild distress. Awake and oriented 3. SKIN: Focused skin assessment warm/dry. HEAD: Atraumatic. Normocephalic. EYES: Pupils equal and round. No scleral icterus. No injection or drainage. ENT: No nasal bleeding or discharge. Mucous membranes pink and moist. NECK: Trachea midline. No JVD. CARDIOVASCULAR: Regular rate and rhythm. No murmur appreciated. Pulses are present and equal bilaterally. RESPIRATORY: No accessory muscle use. Clear to auscultation. Breath sounds equal bilaterally. GASTROINTESTINAL: Abdomen soft, non-tender, nondistended. Hepatic and splenic margins not palpable. MUSCULOSKELETAL: No obvious deformities. No clubbing. No cyanosis. No edema. NEUROLOGICAL: Awake and alert. No obvious cranial nerve deficits. Motor grossly within normal limits. Normal speech. PSYCHIATRIC: Appropriate mood and affect; insight and judgment normal. Course Hospital Course: EKG initially did not show any signs of acute ST elevations or depressions. Lab work shows significant troponin elevation of 0.1. Patient was given aspirin and nitroglycerin in the ER with some improvement chest pains, but on reevaluation at 9 PM is still reporting some discomfort. He was given morphine and heparin protocol was initiated in the ER. At this point, my plan would be to admit the patient for further treatment. Case is discussed with Dr. Randall for admission. Initial Documented Vital Signs Temperature 98.2 F 03/30/18 19:31 Pulse Rate 86 03/30/18 19:31 Respiratory Rate 20 03/30/18 19:31 Blood Pressure 140/103 H 03/30/18 19:31 Pulse Oximetry 96 03/30/18 19:31 Last Documented Vital Signs Temperature 98.2 F 03/30/18 19:31 Pulse Rate 75 03/30/18 20:48 Respiratory Rate 18 03/30/18 20:48 Blood Pressure 139/64 03/30/18 20:48 Pulse Oximetry 95 03/30/18 20:48 Medical Decision Making Differential Diagnosis Differential Diagnosis: ACS versus dysrhythmias versus bronchitis versus pneumonia versus COPD exacerbation Lab Data Result diagrams: 03/30/18 19:52 03/30/18 19:52 Lab Results 03/30/18 03/30/18 03/30/18 Range/Units 19:52 19:52 19:52 WBC 12.2 H (4.0-11.0) th/mm3 RBC 5.77 (4.50-5.90) mil/mm3 Hgb 17.7 H (13.0-17.0) gm/dL Hct 53.1 H (39.0-51.0) % MCV 92.1 (80.0-100.0) fL MCH 30.8 (27.0-34.0) pg MCHC 33.4 (32.0-36.0) % RDW 14.3 (11.6-17.2) % Plt Count 184 (150-450) th/mm3 MPV 9.5 (7.0-11.0) fL Neut % (Auto) 75.1 H (16.0-70.0) % Lymph % (Auto) 18.5 (9.0-44.0) % [place] % (Auto) 3.9 (0.0-8.0) % Eos % (Auto) 1.9 (0.0-4.0) % Baso % (Auto) 0.6 (0.0-2.0) % Neut # (Auto) 9.2 H (1.8-7.7) th/mm3 Lymph # (Auto) 2.3 (1.0-4.8) th/mm3 [place] # (Auto) 0.5 (0.0-0.9) th/mm3 Eos # (Auto) 0.2 (0.0-0.4) th/mm3 Baso # (Auto) 0.1 (0.0-0.2) th/mm3 WBC Differential . Differential Comment Auto diff final PT 9.8 (9.8-11.6) sec INR 1.0 Ratio APTT 24.5 (24.3-30.1) sec Sodium 137 (136-145) meq/L Potassium 3.9 (3.5-5.1) meq/L Chloride 103 (98-107) meq/L Carbon Dioxide 24.1 (21.0-32.0) meq/L Anion Gap 10 (5-15) meq/L BUN 15 (7-18) mg/dL Creatinine 1.15 (0.60-1.30) mg/dL Estimated GFR 68 L (>89) mL/min Random Glucose 155 H (74-106) mg/dL Calcium 9.1 (8.5-10.1) mg/dL Troponin I 0.10 H (0.02-0.05) ng/mL Imaging Data Radiologist's impression: Chest X-Ray 03/30/18 19:41 CONCLUSION: No acute findings. Stable cardiomegaly. Discharge Plan Discharge Disposition Patient Disposition: 30 Still Patient Discharge Condition Condition: Good Discharge Details Anticipated Discharge Date: 03/30/18 Diagnosis: Non-ST elevation (NSTEMI) myocardial infarction Physicians Team ED Provider: [place] Primary Care Provider: Primary Care Tomi,No Rxs /Orders / Referrals /Forms Prescriptions: No Action No Known Home Medications RF: 0 Discharge Instructions Patient Printed Instructions: Chest Pain (ED) Status ED Status: With Doctor
--- NOTE | 2018-03-30 20:08 | XR ---
EXAM DATE: 03/30/2018 7:58 PM EDT AGE/SEX: 47 years / Male INDICATIONS: . Chest pain starting today CLINICAL DATA: This is the patient's initial encounter. Patient reports that signs and symptoms have been present for 1 day and indicates a pain score of 8/10. MEDICAL/SURGICAL HISTORY: None. None. COMPARISON: [facility] – [place], CHEST SINGLE AP, 02/17/2018. . FINDINGS: The heart is enlarged, similar to prior. Central bronchopulmonary markings are fairly well delineated . No focal infiltrates seen. Both hemidiaphragms well delineated. No evidence of pneumothorax. CONCLUSION: No acute findings. Stable cardiomegaly. Electronically signed by: Jhonatan Malloy MD 03/30/2018 8:06 PM EDT
[2018-03-30 20:21] LABS: Baso # (Auto) 0.1 th/mm3 (0.0-0.2); Baso % (Auto) 0.6 % (0.0-2.0); Eos # (Auto) 0.2 th/mm3 (0.0-0.4); Eos % (Auto) 1.9 % (0.0-4.0); Hematocrit 53.1 % (39.0-51.0); Hemoglobin 17.7 gm/dL (13.0-17.0); Lymph # (Auto) 2.3 th/mm3 (1.0-4.8); Lymph % (Auto) 18.5 % (9.0-44.0); Mean Corpuscular HGB Conc 33.4 % (32.0-36.0); Mean Corpuscular Hemoglobin 30.8 pg (27.0-34.0); Mean Corpuscular Volume 92.1 fL (80.0-100.0); Mean Platelet Volume 9.5 fL (7.0-11.0); Mono # (Auto) 0.5 th/mm3 (0.0-0.9); Mono % (Auto) 3.9 % (0.0-8.0); Neut # (Auto) 9.2 th/mm3 (1.8-7.7); Neut % (Auto) 75.1 % (16.0-70.0); Platelet Count 184 th/mm3 (150-450); Red Blood Count 5.77 mil/mm3 (4.50-5.90); Red Cell Distribution Width 14.3 % (11.6-17.2); White Blood Count 12.2 th/mm3 (4.0-11.0)
[2018-03-30 20:36] LABS: Activated Partial Thrombo Time 24.5 sec (24.3-30.1); Prothrombin Time 9.8 sec (9.8-11.6)
[2018-03-30 20:42] LABS: Calcium 9.1 mg/dL (8.5-10.1); Carbon Dioxide 24.1 meq/L (21.0-32.0); Potassium 3.9 meq/L (3.5-5.1)
[2018-03-30 20:47] LABS: Troponin I 0.1 ng/mL (0.02-0.05)
[2018-03-30] MEDS ORDERED: Morphine Inj 4 MG/ML Vial IV.PUSH ONE (21:01)
[2018-03-30] MEDS ORDERED: Heparin Drip 25,000 UNIT/250 ML BAG IV.CONT PRN (21:02)
[2018-03-30] MEDS ORDERED: Heparin 10,000 UNITS/10 ML Vial (for IV use) IV.PUSH STA (21:02)
[2018-03-30] MEDS ORDERED: Bisacodyl 10 MG Supp RECTAL PRN (21:25)
[2018-03-30] MEDS ORDERED: Acetaminophen 325 MG Tablet PO PRN (21:25)
[2018-03-30] MEDS ORDERED: Morphine Sulfate Inj 2 MG/ML Vial IV.PUSH PRN (21:36)
--- NOTE | 2018-03-30 21:37 | P.HP ---
History of Present Illness Service: [facility] Primary Care Physician: No Primary Care Physician History of Present Illness: 47-year-old male with past medical history significant for COPD presents the emergency department for the evaluation of left-sided chest pain that radiates down his left arm. The patient reports that approximately 2 hours ago he suddenly developed left-sided chest pain that radiated down his left arm with accompanying diaphoresis, shortness of breath and dizziness. The episode was followed by nausea. He reports that the pain was so great that he came to the emergency department for further evaluation. He denies any headaches. No fever /chills. No lateralizing signs/symptoms. Inpatient Certification: I certify that the inpatient services were ordered in accordance with Medicare regulations governing the order. This includes certification that hospital inpatient services are reasonable and necessary and in the case of services not specified as inpatient-only under 42 CFR 419.22(n), that they are appropriately provided as inpatient services in accordance to with the 2-midnight benchmark under 43 CFR 412.3(e) Review of Systems All other systems reviewed negative except as stated in HPI PMFSH - History History Provided By: Patient - Medical History Medical History: Medical History (Last Reviewed 03/30/18 @ 19:43 by Gabriel Jefferson MD) Asthma - Tobacco History Second Hand Smoke Exposure: No Tobacco Use In Past 30 Days: Yes Smoking Status: Current every day smoker Tobacco Type: Cigarettes - Alcohol History How Often Do You Have a Drink Containing Alcohol: 2 to 4 times a month - Substance Use History Substance History: Active Abuse - Substance Use Type Marijuana Status: Active Frequency: once a month - Travel History Recent Travel in the [place] Within the Last 8 Weeks: No Recent Travel Out of the Country Within the Last 8 Weeks: No - Immunization History Tetanus Immunization: <5 Years Hx Influenza Vaccine This Season: Yes Medications and Allergies Active Medications: Active Medications Heparin Sodium/Dextrose (Heparin/D5w 25,000 U/250 Ml) 25,000 unit in 250 mls @ 0 mls/hr IV.CONT TITRATE PRN; Protocol PRN Reason: Per Protocol Last Admin: 03/30/18 21:18 Dose: 1,000 units/hr, 10 mls/hr Sodium Chloride (Ns Flush) 2 ml IV.FLUSH UNSCH PRN PRN Reason: FLUSH AFTER USING IV ACCESS Allergies Allergy/AdvReac Type Severity Reaction Status Date / Time No Known Allergies Allergy Verified 03/30/18 19:37 Home Medications Medication Instructions Recorded Confirmed Type No Known Home Medications 03/30/18 03/30/18 History Exam Vital signs: Vital Signs 03/30/18 19:31 03/30/18 19:46 03/30/18 20:48 Temperature 98.2 F Pulse Rate 86 82 75 Respiratory Rate 20 18 18 Blood Pressure 140/103 H 147/100 H 139/64 Pulse Oximetry 96 96 95 Intake & Output 03/30/18 03/30/18 03/31/18 06:59 18:59 06:59 Weight 171.458 kg Narrative: Gen.: No acute distress Head: Normocephalic. Atraumatic. EENT: Pupils equal round and reactive to light. Nose without drainage. Airway intact. Throat without injection. Cardiovascular: Regular rate and rhythm. No murmurs, rubs or gallops. Respiratory: Lungs clear to auscultation bilaterally. No wheezes or rhonchi. Abdomen: Soft, nontender, nondistended. No peritoneal signs. Musculoskeletal: No gross deformities. No edema. Skin: No obvious rashes or erythema. Neuro: Sensory and motor grossly intact. Cranial nerves II through XII grossly intact. Psych: Appropriate mood and affect Results - Labs CBC & Chem 7: 03/30/18 19:52 03/30/18 19:52 Labs: Laboratory Results - last 24 hr 03/30/18 03/30/18 03/30/18 19:52 19:52 19:52 WBC 12.2 H RBC 5.77 Hgb 17.7 H Hct 53.1 H MCV 92.1 MCH 30.8 MCHC 33.4 RDW 14.3 Plt Count 184 MPV 9.5 Neut % (Auto) 75.1 H Lymph % (Auto) 18.5 [place] % (Auto) 3.9 Eos % (Auto) 1.9 Baso % (Auto) 0.6 Neut # (Auto) 9.2 H Lymph # (Auto) 2.3 [place] # (Auto) 0.5 Eos # (Auto) 0.2 Baso # (Auto) 0.1 WBC Differential . Differential Comment Auto diff final PT 9.8 INR 1.0 APTT 24.5 Sodium 137 Potassium 3.9 Chloride 103 Carbon Dioxide 24.1 Anion Gap 10 BUN 15 Creatinine 1.15 Estimated GFR 68 L Random Glucose 155 H Calcium 9.1 Troponin I 0.10 H B-Natriuretic Peptide 03/30/18 19:52 WBC RBC Hgb Hct MCV MCH MCHC RDW Plt Count MPV Neut % (Auto) Lymph % (Auto) [place] % (Auto) Eos % (Auto) Baso % (Auto) Neut # (Auto) Lymph # (Auto) [place] # (Auto) Eos # (Auto) Baso # (Auto) WBC Differential Differential Comment PT INR APTT Sodium Potassium Chloride Carbon Dioxide Anion Gap BUN Creatinine Estimated GFR Random Glucose Calcium Troponin I B-Natriuretic Peptide 22 - Imaging Impressions Chest X-Ray 03/30/18 19:41 CONCLUSION: No acute findings. Stable cardiomegaly. Caprini VTE Risk Assessment Caprini VTE Risk Assessment: No/Low Risk (score <= 1) Caprini Risk Assessment Model: Point Value = 1 Point Value = 2 Point Value = 3 Point Value = 5 Age 41-60 Minor surgery BMI > 25 kg/m2 Swollen legs Varicose veins or History of unexplained or recurrent spontaneous Oral contraceptives or hormone replacement Sepsis (< 1 month) Serious lung disease, including pneumonia (< 1 month) Abnormal pulmonary function Acute myocardial infarction Congestive heart failure (< 1 month) History of inflammatory bowel disease Medical patient at bed rest Age 61-74 Arthroscopic surgery Major open surgery (> 45 min) Laparoscopic surgery (> 45 min) Malignancy Confined to bed (> 72 hours) Immobilizing plaster cast Central venous access Age >= 75 History of VTE Family history of VTE Factor V Leiden Prothrombin [id number] Lupus anticoagulant Anticardiolipin antibodies Elevated serum homocysteine Heparin-induced thrombocytopenia Other congenital or acquired thrombophilia Stroke (< 1 month) Elective arthroplasty Hip, pelvis, or leg fracture Acute spinal cord injury (< 1 month) Prophylaxis Regimen: Total Risk Factor Score Risk Level Prophylaxis Regimen 0-1 Low Early ambulation 2 Moderate Order ONE of the following: *Sequential Compression Device (SCD) *Heparin 5000 units SQ BID 3-4 Higher Order ONE of the following medications: *Heparin 5000 units SQ TID *Enoxaparin/Lovenox 40 mg SQ daily (WT < 150 kg, CrCl > 30 mL/min) *Enoxaparin/Lovenox 30 mg SQ daily (WT < 150 kg, CrCl > 10-29 mL/min) *Enoxaparin/Lovenox 30 mg SQ BID (WT < 150 kg, CrCl > 30 mL/min) AND/OR *Sequential Compression Device (SCD) 5 or more Highest Order ONE of the following medications: *Heparin 5000 units SQ TID (Preferred with Epidurals) *Enoxaparin/Lovenox 40 mg SQ daily (WT < 150 kg, CrCl > 30 mL/min) *Enoxaparin/Lovenox 30 mg SQ daily (WT < 150 kg, CrCl > 10-29 mL/min) *Enoxaparin/Lovenox 30 mg SQ BID (WT < 150 kg, CrCl > 30 mL/min) AND *Sequential Compression Device (SCD) Assessment and Plan - Plan Assessment/plan: 1. NSTEMI Troponin elevated 0.[address] segment elevations or depressions, personally reviewed Aspirin, morphine, nitro Heparin drip Cardiology consulted, appreciate recommendations 2. COPD Duo nebs as needed FEN N.p.o. Electrolytes: Monitor and replete as needed Heparin drip
[2018-03-31] MEDS: Morphine Inj 4 MG/ML Vial IV.PUSH PRN ×5 (00:24→23:36)
[2018-03-31 01:49] LABS: Troponin I 4.18 ng/mL (0.02-0.05)
[2018-03-31 02:01] LABS: Creatine Kinase MB 55.1 ng/mL (0.5-3.6)
[2018-03-31 02:03] LABS: CKMB Percent 15.5 % (0.0-4.0)
[2018-03-31 07:31] LABS: Baso # (Auto) 0.1 th/mm3 (0.0-0.2); Baso % (Auto) 0.9 % (0.0-2.0); Eos # (Auto) 0.4 th/mm3 (0.0-0.4); Eos % (Auto) 3.8 % (0.0-4.0); Hematocrit 45.9 % (39.0-51.0); Hemoglobin 15.4 gm/dL (13.0-17.0); Lymph % (Auto) 31.7 % (9.0-44.0); Mean Corpuscular HGB Conc 33.5 % (32.0-36.0); Mean Corpuscular Hemoglobin 31.4 pg (27.0-34.0); Mean Corpuscular Volume 93.5 fL (80.0-100.0); Mean Platelet Volume 9.4 fL (7.0-11.0); Mono # (Auto) 0.6 th/mm3 (0.0-0.9); Mono % (Auto) 6.5 % (0.0-8.0); Neut # (Auto) 5.4 th/mm3 (1.8-7.7); Neut % (Auto) 57.1 % (16.0-70.0); Platelet Count 159 th/mm3 (150-450); Red Blood Count 4.91 mil/mm3 (4.50-5.90); Red Cell Distribution Width 14.7 % (11.6-17.2); White Blood Count 9.4 th/mm3 (4.0-11.0)
[2018-03-31 07:50] LABS: Anion Gap 6 meq/L (5-15); Blood Urea Nitrogen 16 mg/dL (7-18); Calcium 8.1 mg/dL (8.5-10.1); Carbon Dioxide 27.7 meq/L (21.0-32.0); Chloride 105 meq/L (98-107); Cholesterol 104 mg/dL (120-200); Glomerular Filtration Rate Greater Than 89 mL/min (>89); Glucose,Random 103 mg/dL (74-106); Sodium 139 meq/L (136-145)
[2018-03-31 07:58] LABS: Chol/HDL Ratio 3.76 Ratio; HDL Cholesterol 27.6 mg/dL (40.0-60.0); LDL Cholesterol,Calculated 54 mg/dL (0-99); Triglycerides 111 mg/dL (42-150)
[2018-03-31] MEDS ORDERED: Sod Chloride 0.9% Inj 1,000 ML IV.CONT SCH (08:00)
[2018-03-31] MEDS ORDERED: fentaNYL Citrate Inj 100 MCG/2 ML Ampul IV.PUSH SCH (08:15)
--- NOTE | 2018-03-31 08:19 | MB ---
cc: Codey Matta MD DATE: 03/31/2018 REASON FOR CONSULTATION: [id number] myocardial infarction. HISTORY OF PRESENT ILLNESS: The patient is a 47-year-old white male with a history of asthma/COPD, who was in his usual state of health up until yesterday afternoon when he began to experience fairly severe substernal chest pressure radiating to his left shoulder and left upper arm, associated with shortness of breath and initially nausea. The chest discomfort has persisted in a constant fashion until this morning, although it is markedly improved. The arm discomfort has completely resolved. He denies pleurisy, dizziness, syncope, near syncope, palpitations, paroxysmal nocturnal dyspnea. Chronically he has intermittent dependent edema. PAST MEDICAL HISTORY: 1. Asthma/chronic obstructive pulmonary disease. CARDIAC MEDICATIONS AT HOME: None. ALLERGIES: NO KNOWN DRUG ALLERGIES. FAMILY HISTORY: Unknown as the patient is adopted. SOCIAL HISTORY: The patient smokes about a pack of cigarettes per day. He used to smoke 3 packs of cigarettes per day. He denies alcohol or drug abuse. REVIEW OF SYSTEMS: As in the history of present illness, otherwise negative or noncontributory. He also denies headache, abdominal pain, melena, dyspepsia, bright red blood per rectum. PHYSICAL EXAMINATION: VITAL SIGNS: His blood pressure 120/80 with a pulse of 79, respirations 20. GENERAL: He is a well-developed, well-nourished white male, in no acute distress. NECK: Jugular venous pressure is hard to assess. Carotid pulses are 2+ bilaterally and without bruits. CHEST: Reveals diffuse expiratory wheezes. CARDIAC: He has a regular rhythm and rate without S3, S4, or murmur. ABDOMEN: He has a soft, obese, nontender abdomen. Bowel sounds are present. There is no definite hepatosplenomegaly. EXTREMITIES: Reveals no clubbing, cyanosis or edema. Peripheral pulses are normal throughout. LABORATORY DATA: EKG shows normal sinus rhythm, normal EKG. Chest x-ray shows no acute disease. Includes hemoglobin 17.7, WBC 12.2. Potassium 3.9, BUN 15, creatinine 1.5. Troponin 4.1, CK 356. IMPRESSION: Acute non-ST elevation myocardial infarction in this 47-year-old white male with a history of chronic obstructive pulmonary disease. At this time, he continues to have ongoing chest discomfort, although much improved compared to yesterday. EKG shows no acute ST segment or T-wave changes. There has been no evidence for congestive heart failure or significant arrhythmias so far. Because of the instability of his symptoms and his abnormal cardiac enzymes, I have recommended he undergo cardiac catheterization with probable percutaneous coronary intervention, the risks of which have been explained to him including, but not limited to , myocardial infarction, stroke, arrhythmia, bleeding, infection, and renal failure. He agrees to proceed. RECOMMENDATIONS: 1. Continue heparin drip and aspirin. 2. Check a fasting lipid profile. 3. Continue metoprolol, nitrates; add an SWAPNIL inhibitor. 4. Cardiac catheterization today. Codey Matta MD [facility] , 08:04 AM , 08:16 AM NICK
[2018-03-31] MEDS ORDERED: Morphine Sulfate Inj 8 MG/ML Vial IV.PUSH ONE (08:40)
[2018-03-31] MEDS: Metoprolol Tartrate 25 MG Tablet PO SCH ×2 (09:22→20:59)
--- NOTE | 2018-03-31 10:23 | P.PNIM ---
Subjective Interval history: Patient reports that dull left-sided chest pain continues. Denies any nausea or vomiting. Denies sweating or shortness of breath. Physical Exam Vital signs: Vital Signs 03/30/18 19:31 03/30/18 19:46 03/30/18 20:48 Temperature 98.2 F Pulse Rate 86 82 75 Respiratory Rate 20 18 18 Blood Pressure 140/103 H 147/100 H 139/64 Pulse Oximetry 96 96 95 03/31/18 00:00 03/31/18 04:00 03/31/18 08:00 Temperature 97.6 F 97.8 F 98.0 F Pulse Rate 78 79 85 Respiratory Rate 21 20 16 Blood Pressure 146/96 H 120/80 111/69 Pulse Oximetry 94 L 93 L 97 Intake & Output 03/30/18 03/31/18 03/31/18 18:59 06:59 18:59 Intake Total 640 / 640 Output Total 600 / 600 Balance 40 / 40 Weight 171.458 kg Intake: Oral 640 / 640 Output: Urine 600 / 600 Other: Weight On Admission 171.458 kg Narrative: GENERAL: Patient lying in bed on left side. Appears uncomfortable. SKIN: Warm and dry. HEAD: Normocephalic. EYES: No scleral icterus. No injection or drainage. NECK: Supple, trachea midline. No JVD. CARDIOVASCULAR: Regular rate and rhythm without murmurs, gallops, or rubs. RESPIRATORY: Breath sounds equal bilaterally. No accessory muscle use. GASTROINTESTINAL: Abdomen soft, non-tender, nondistended. MUSCULOSKELETAL: No cyanosis, or edema. BACK: Nontender without obvious deformity. No CVA tenderness. Results - Labs CBC & Chem 7: 03/31/18 05:45 03/31/18 05:45 Laboratory Results - last 24 hr 03/30/18 03/30/18 03/30/18 19:52 19:52 19:52 WBC 12.2 H RBC 5.77 Hgb 17.7 H Hct 53.1 H MCV 92.1 MCH 30.8 MCHC 33.4 RDW 14.3 Plt Count 184 MPV 9.5 Neut % (Auto) 75.1 H Lymph % (Auto) 18.5 [place] % (Auto) 3.9 Eos % (Auto) 1.9 Baso % (Auto) 0.6 Neut # (Auto) 9.2 H Lymph # (Auto) 2.3 [place] # (Auto) 0.5 Eos # (Auto) 0.2 Baso # (Auto) 0.1 WBC Differential . Differential Comment Auto diff final PT 9.8 INR 1.0 APTT 24.5 Sodium 137 Potassium 3.9 Chloride 103 Carbon Dioxide 24.1 Anion Gap 10 BUN 15 Creatinine 1.15 Estimated GFR 68 L Random Glucose 155 H Calcium 9.1 Total Creatine Kinase CK-MB (CK-2) CK-MB (CK-2) % Troponin I 0.10 H B-Natriuretic Peptide Triglycerides Cholesterol LDL Cholesterol, Calc HDL Cholesterol Cholesterol/HDL Ratio 03/30/18 03/31/18 03/31/18 19:52 01:12 01:12 WBC RBC Hgb Hct MCV MCH MCHC RDW Plt Count MPV Neut % (Auto) Lymph % (Auto) [place] % (Auto) Eos % (Auto) Baso % (Auto) Neut # (Auto) Lymph # (Auto) [place] # (Auto) Eos # (Auto) Baso # (Auto) WBC Differential Differential Comment PT INR APTT 26.6 Sodium Potassium Chloride Carbon Dioxide Anion Gap BUN Creatinine Estimated GFR Random Glucose Calcium Total Creatine Kinase 356 H CK-MB (CK-2) 55.1 H CK-MB (CK-2) % 15.5 H* Troponin I 4.18 H* B-Natriuretic Peptide 22 Triglycerides Cholesterol LDL Cholesterol, Calc HDL Cholesterol Cholesterol/HDL Ratio 03/31/18 03/31/18 03/31/18 05:45 05:45 09:28 WBC 9.4 RBC 4.91 Hgb 15.4 D Hct 45.9 MCV 93.5 MCH 31.4 MCHC 33.5 RDW 14.7 Plt Count 159 MPV 9.4 Neut % (Auto) 57.1 Lymph % (Auto) 31.7 [place] % (Auto) 6.5 Eos % (Auto) 3.8 Baso % (Auto) 0.9 Neut # (Auto) 5.4 Lymph # (Auto) 3.0 [place] # (Auto) 0.6 Eos # (Auto) 0.4 Baso # (Auto) 0.1 WBC Differential . Differential Comment Auto diff final PT INR APTT 28.5 Sodium 139 Potassium 4.0 Chloride 105 Carbon Dioxide 27.7 Anion Gap 6 BUN 16 Creatinine 0.84 Estimated GFR Greater than 89 Random Glucose 103 Calcium 8.1 L D Total Creatine Kinase CK-MB (CK-2) CK-MB (CK-2) % Troponin I B-Natriuretic Peptide Triglycerides 111 Cholesterol 104 L LDL Cholesterol, Calc 54 HDL Cholesterol 27.6 L Cholesterol/HDL Ratio 3.76 - Imaging Impressions Chest X-Ray 03/30/18 19:41 CONCLUSION: No acute findings. Stable cardiomegaly. Assessment and Plan - Plan //NSTEMI 1. NSTEMI Troponin elevated 0.[address] segment elevations or depressions, personally reviewed Aspirin, morphine, nitro Heparin drip Cardiology consulted, appreciate recommendations = Continue chest pain. Continue heparin drip, aspirin. Troponin up to 4.18. I discussed with nursing, who will contact cardiology for catheterization. Will increase patient's Nitro-Bid to 1.5 inches every 6 hours. // COPD Duo nebs as needed FEN N.p.o. Electrolytes: Monitor and replete as needed Heparin drip Discharge Planning: pEnding cardiac catheterization.
[2018-03-31 10:28] LABS: Troponin I 9.73 ng/mL (0.02-0.05)
[2018-03-31 10:57] LABS: Amphetamine Screen,Urine Neg (Neg); Barbiturate Screen,Urine Neg (Neg); Cannabinoid Screen,Urine Pos (Neg); Cocaine Screen,Urine Neg (Neg)
[2018-03-31 10:58] LABS: Opiate Screen,Urine Pos (Neg)
[2018-03-31] MEDS ORDERED: TIROFIBAN BOLUS IV.PUSH ONE (11:00)
[2018-03-31] MEDS ORDERED: Morphine Inj 4 MG/ML Vial IV.PUSH ONE (12:00)
[2018-03-31] MEDS ORDERED: Nitroglycerin Drip Premix 50 MG/250 ML BOTTLE ONE (13:10)
[2018-03-31] MEDS ORDERED: fentaNYL Citrate Inj 100 MCG/2 ML Ampul ONE (17:35)
[2018-03-31] MEDS ORDERED: Heparin/NS PF Inj 500 ML ONE ×2 (17:35→18:51)
[2018-03-31] MEDS ORDERED: Heparin 10,000 UNITS/10 ML Vial (for IV use) ONE (17:36)
[2018-03-31] MEDS ORDERED: Nitroglycerin Drip Premix 50 MG/250 ML BOTTLE IV.CONT PRN (17:44)
--- NOTE | 2018-03-31 19:04 | ECG ---
Date Performed: 03/31/2018 Time Performed: 01:31:41 PTAGE: 47 years EKG: Sinus rhythm BORDERLINE ECG PREVIOUS TRACING : 03/30/2018 19.36 Since the previous tracing, no significant change noted DOCTOR: Luke Godwin Interpretating Date/Time 03/31/2018 19:03:18
--- NOTE | 2018-03-31 19:07 | ECG ---
Date Performed: 03/31/2018 Time Performed: 08:28:30 PTAGE: 47 years EKG: Sinus rhythm POSSIBLE INFERIOR MYOCARDIAL INFARCTION MODERATE T-WAVE ABNORMALITY, CONSIDER ANTERIOR ISCHEMIA ABNO RMAL ECG PREVIOUS TRACING : 03/31/2018 01.31 The anterior T-wave abnormality are new form the prior trac ing. Clinical correlation is recommended for ischemia. DOCTOR: Luke Godwin Interpretating Date/Time 04/05/2018 06:56:11
--- NOTE | 2018-03-31 19:08 | ECG ---
Date Performed: 03/31/2018 Time Performed: 10:22:05 PTAGE: 47 years EKG: Sinus rhythm PROBABLE INFERIOR MYOCARDIAL INFARCTION ABNORMAL ECG PREVIOUS TRACING : 03/31/2018 08.28 The anterior T-wave abnormalities have slightly improved fr om the previous tracing. Clinical correlation is recommended DOCTOR: Luke Godwin Interpretating Date/Time 03/31/2018 19:05:54
--- NOTE | 2018-03-31 19:12 | ECG ---
Date Performed: 03/30/2018 Time Performed: 19:36:57 PTAGE: 47 years EKG: Sinus rhythm NORMAL ECG PREVIOUS TRACING : 02/17/2018 15.13 Since the previous tracing, no significant change noted DOCTOR: Luke Godwin Interpretating Date/Time 03/31/2018 19:11:54
[2018-03-31] MEDS ORDERED: Tirofiban Inj 12,500 MCG/250 ML PLAST..BAG ONE (19:29)
[2018-03-31] MEDS: Tirofiban Inj 12,500 MCG/250 ML PLAST..BAG IV.CONT SCH (19:30)
[2018-03-31] MEDS ORDERED: Misc Info for Pharmacy OTHER STA (20:00)
--- NOTE | 2018-03-31 20:06 | CATHPROC ---
[facility] HIS Report Study Information Study Number Admission Scheduled Start Study Start [id number] Mar 30 2018 9:14PM 03/31/2018 Mar 31 2018 5:26PM [place] [facility] Cardiac Catheterization Admit Source Facility Department Emergency department [facility] - Data Center Engineer Physician and Clinical Staff Initial Codey Leo Battery Plate Assembler Radhika Mccloud RN Other cathlab, cathlab Recorder Nerissa Leiva ,RT(R) Recorder Adam Fabian,IVA Scrub Mya Hanna,WELFARE MANAGER TECH2 Procedures Performed Procedure Location (Site) Vessel Name Angiogram LV LV Ventricle Coronary Angiograms LCA Left Coronary Coronary Angiograms RCA Right Coronary Drug Eluting Inflatio LAD Prox Left Coronary L Heart Cath PTCA DIAG Prox Left Coronary PTCA LAD Prox Left Coronary Wire insertion Fem Art (right) Femoral Art Wire insertion Radial (right) Radial Art. Equipment Time Manager Internet Description Size Mfg Part Number Used/Scraped [id number] 18:43 [employer] WIRE, ASAHI PROWATER 180CM 180CM Used *[id number] WIRE, BALANCE MIDDLEWEIGHT [id number] 19:01 [employer] 190CM Used 190CM *[id number] TRANSDUCER, TRUWAVE [id number] 17:36 POOLE CORNEJO * Used W/STOCKCOCK *[id number] *1938595 [id number] *1320099 534-620T *5058127 534-617T *[id number] 534-650S *[id number] 19:47 DAIG/ST. BRENDA MEDICAL ANGIOSEAL, FR6 VIP FR 6 Used *[id number] 646125 17:36 MALLINCKRODT SYRINGE, ANGIOMAT 150ML 150ML *[id number]/361705 Used 2SUB MEDICAL CONCEPT DRAPE, RADIAL FEMORAL FULL 17:36 * [id number] *[id number] Used DEVELOPMENT BODY [id number] 17:36 [employer] BLANKET,WARM AIR CCL * Used *[id number] [id number] 17:36 [employer] INDUSTRIES PACK, CCL CUSTOM * Used *9207828 17:36 [employer] SUPPORT, ARTERIAL ADULT 22258 *7199530 Used [id number] 17:36 MEDLINE PACER PEN, SKIN DUAL W/ RULER * Used *[id number] 19:03 MEDTRONIC BALLOON, 2.5 X 15MM EUPHORA 15MM Used *[id number] EXPORTAP 19:04 MEDTRONIC CATHETER, EXPORT ASPIRATON Used *[id number] 19:19 MEDTRONIC STENT, 3.0 15MM XAVIER 3.0 15MM Used *1467872 [id number] 19:35 MEDTRONIC STENT, 3.0 8MM XAVIER 3.0 8MM Used *5736750 [id number] 18:43 Pretty Padded Room 30 CONSTANTIN INDEFLATOR Used *6654375 BAND, RADIAL COMPRESSION TR [id number] 19:47 WHI Solution MEDICAL 29CM Used LARGE 29 *[id number] SHEATH, FR6 RADIAL PRELUDE 17:36 Pretty Padded Room FR 6 [id number] Used EASE 11CM [id number] 18:46 Pretty Padded Room SHEATH, FR6.5 PRELUDE 11CM FR 6.5 038ACT Used *3758976 [id number] 17:36 Pretty Padded Room WIRE, EXCHANGE 260CM 3MMJ 260CM Used *[id number] [id number] 17:36 NAMIC MANIFOLD, 4 PORT * Used *5798091 [id number] 19:37 NAMIC TUBING, HIGH PRESSURE 48" 48" Used *3051869 17:36 NYCOMED OMNIPAQUE, 350 MG, 150ML 150ML [id number] Used CATHETER, FR5 OPTITORQUE [id number] 18:17 [email or web address] MEDICAL FR 5 Used RADIAL TIG 4.0 *[id number] Equipment Model, Serial, Lot Number and Expiration Data Description Model Number Serial Number Lot Number Expiration Da chel ANGIOSEAL, FR6 VIP [id number] 10-13-2018 STENT, 3.0 15MM XAVIER [id number] 10-19-2019 STENT, 3.0 8MM XAVIER [id number] 10-26-2019 History: Current Medications Medication Dosage/Unit Route Frequency Last Date/Time Taken Beta Maria Elena ASA History: Allergies Allergy Reaction No Known Allergies History: Risk Factors Family History of Hypertension Dyslipidemia Previous ID Previous Heart Failure Premature CAD Yes Yes No No No Prior Valve Prior PCI Prior CABG Surgery No No No Cerebrovascular Peripheral Artery Chronic Lung On Dialysis Diabetes Disease Disease Disease No No No Yes No History: Symptoms/Diagnosis Selection Items Chest pain History: Stress Tests Stress or Imaging Studies Performed No History: Other Disease Selection Items HTN History: Other Current Smoker Method Packs a Day Years Used Pack Years Yes Cigarettes 3 10 30 Labs Hgb (g/dl) Hct (%) WBC (l/cumm) Platelets (thousands) 11.60-17.00 35.00-51.00 4.00-11.00 150.00-450.00 15.4 45.9 9.4 159 Glucose (mg/dl) BUN (mg/dl) Creatinine (mg/dl) BUN:Creatinine (1:x) 74.00-106.00 7.00-18.00 0.50-1.30 10.00-20.00 103 16 0.8 20 Na (meq/l) K (meq/l) 136.00-145.00 3.50-5.10 139 4 INR (PTT:PT) 0.90-1.10 1 Troponin I (ng/ml) CPK (u/l) CPK-MB (ng/ML) 0.02-0.05 26.00-308.00 0.50-3.60 4.1 356 55.1 Medication Medication Total Dose (Bolus/Oral) Medication Total Dosage/Unit 1% XYLOCAINE 25 mL AGGRASTAT BOLUS 0 mcg/kg/min FENTANYL 100 mcg HEPARIN 08490 units NTG (IC) 100 mcg PLAVIX 600 mg RADIAL COCKTAIL 5 mL (Bolus) VERSED 4 mg Medications (Bolus/Oral) Medication Time Given Dosage/Unit Administered By Reason VERSED 03/31/2018 6:12:00 PM 2 mg Radhika Mccloud 2 mg VERSED given in lab by Radhika Mccloud, IVA via Peripheral IV. Ordered by Codey Matta. 1% XYLOCAINE 03/31/2018 6:12:40 PM 5 mL Codey Matta 5 mL 1% XYLOCAINE given in lab by Codey Matta in Right Radial via Subcutaneous. Ordered by Tyrone Matta enn. FENTANYL 03/31/2018 6:14:00 PM 50 mcg Yen Mccloudaret 50 mcg FENTANYL given in lab by Radhika Mccloud, RN via Peripheral IV. Ordered by Codey Matta. Ntg 200mcg Verapamil 2.5mg Heparin RADIAL COCKTAIL 03/31/2018 6:17:00 PM 5 mL (Bolus) Codey Matta 3000U 5 mL (Bolus) RADIAL COCKTAIL given in lab by Codey Matta via Radial. Using [Solution Name]. Ordered by Codey Matta. Reason: Ntg 200mcg Verapamil 2.5mg Heparin 2500U. VERSED 03/31/2018 6:33:00 PM 0.5 mg Mrache, Radhika 0.5 mg VERSED given in lab by Radhika Mccloud RN via Peripheral IV. Ordered by Codey Matta. VERSED 03/31/2018 6:34:00 PM 0.5 mg Mrache, Radhika 0.5 mg VERSED given in lab by Radhika Mccloud RN via Peripheral IV. Ordered by Codey Matta. FENTANYL 03/31/2018 6:36:00 PM 25 mcg Mrache, Radhika 25 mcg FENTANYL given in lab by Radhika Mccloud RN via Peripheral IV. Ordered by Codey Matta. HEPARIN 03/31/2018 6:41:33 PM 01009 units Mrache, Radhika 20760 units HEPARIN given in lab by Radhika Mccloud RN via Peripheral IV. Ordered by Codey Matta. 1% XYLOCAINE 03/31/2018 6:45:56 PM 20 mL Codey Matta 20 mL 1% XYLOCAINE given in lab by Codey Matta in Right Groin via Subcutaneous. Ordered by Tyrone Matta enn. FENTANYL 03/31/2018 6:48:00 PM 25 mcg Mrache, Radhika 25 mcg FENTANYL given in lab by Radhika Mccloud RN via Peripheral IV. Ordered by Codey Matta. VERSED 03/31/2018 6:50:00 PM 0.5 mg Mrache, Radhika 0.5 mg VERSED given in lab by Radhika Mccloud RN via Peripheral IV. Ordered by Codey Matta. VERSED 03/31/2018 7:14:00 PM 0.5 mg Mrache, Radhika 0.5 mg VERSED given in lab by Radhika Mccloud RN via Peripheral IV. Ordered by Codey Matta. NTG (IC) 03/31/2018 7:23:41 PM 100 mcg Codey Matta 100 mcg NTG (IC) given in lab by Codey Matta via Intra-coronary. Ordered by Codey Matta. AGGRASTAT BOLUS 03/31/2018 7:32:24 PM 0 mcg/kg/min Rogers, Radhika 0 mcg/kg/min AGGRASTAT BOLUS given in lab by Radhika Mccloud, IVA via Peripheral IV. Pump/Drip Flow = 75 ml/hr using D5W. Ordered by Codey Matta. PLAVIX 03/31/2018 7:55:22 PM 600 mg Radhika Mccloud 600 mg PLAVIX given in lab by Radhika Mccloud, RN via Oral. Ordered by Codey Matta. Medication (Drip) Medication Time Given Dosage/Unit Concentration/Unit Diluent (ml) Solution AGGRASTAT DRIP 03/31/2018 7:33:25 PM 0.131 mcg/kg/min 12.5 mg 250 NaCl .9 0.131 mcg/kg/min AGGRASTAT DRIP given in lab by Radhika Mccloud, IVA via Peripheral IV. Pump/Drip Enrique w = 27 ml/hr using NaCl .9 with a concentration of 12.5 mg in 250 ml. Ordered by Codey Matta. HEPARIN DRIP STOPPED 03/31/2018 5:31:29 PM 0 units/hr 0 Patient arrived on 0 units/hr HEPARIN DRIP STOPPED in Right Antecubital via Peripheral IV. Pump/Drip Flow = 0 ml/hr using [Solution Name]. Ordered by Codey Matta. IV Solutions 03/31/2018 5:32:14 PM 0 mL (IV) 500 NaCl .9 Patient arrived on IV Solutions in Left Antecubital via Peripheral IV. Pump/Drip Flow = 20 ml/hr usin g NaCl .9. Ordered by Codey Matta. NITROGLYCERIN DRIP 03/31/2018 5:26:28 PM 5 mcg/min 50 mg 250 D5W Patient arrived on 5 mcg/min NITROGLYCERIN DRIP in Right Antecubital via Peripheral IV. Pump/Drip Enrique w = 1.5 ml/hr using D5W with a concentration of 50 mg in 250 ml. Ordered by Codey Matta. Initial Case Assessment Cardiovascular HR Rhythm NIBP Chest Pain 86 nsr 125/67 0 Edema Present Skin color Skin Mild Normal Warm Dry Circulatory - Right Pulses Dorsalis Pedis Femoral Radial 2 2 2 Scale (0,1,2,3,4,d) Scale (0,1,2,3,4,d) Neurological State Oriented to time-place- Alert Moves all extremities person Respiration - General Respiration Rate SpO2 (%) (B/min) 15 95 Final Case Assessment Cardiovascular HR Rhythm NIBP Chest Pain 86 nsr 125/67 0 Edema Present Skin color Skin Mild Normal Warm Dry Circulatory - Right Pulses Dorsalis Pedis Femoral Radial 2 2 2 Scale (0,1,2,3,4,d) Scale (0,1,2,3,4,d) Neurological State Oriented to time-place- Alert Moves all extremities person Respiration - General Respiration Rate SpO2 (%) (B/min) 15 95 Chronological Log Time Study Chronological Log 17:26:12 Patient arrived via Bed. 17:26:14 Patient Name, D.O.B, / Armband Verified By R.N. 17:26:15 Consent signed by the physician and the patient and verified by the Data Center Engineer staff. 17:26:16 Pre-op and post- op instructions given; patient acknowledges understanding of instructions. 17:26:18 Patient has been NPO for More than 6Hrs. 17:26:19 Skin Breakdown- none per patient 17:26:22 Ryan Prominences Protected 17:26:25 A # 20 IV was noted in the Antecubital (right). Grade = 0 17:26:27 A # 20 IV was noted in the Antecubital (left). Grade = 0 Patient arrived on 5 mcg/min NITROGLYCERIN DRIP in Right Antecubital via Peripheral IV. Pump/Dr ip Flow = 1.5 ml/hr 17:26:28 using D5W with a concentration of 50 mg in 250 ml. Ordered by Codey Matta. Patient arrived on 0 units/hr HEPARIN DRIP STOPPED in Right Antecubital via Peripheral IV. Pump /Drip Flow = 0 ml/hr 17:31:29 using [Solution Name]. Ordered by Codey Matta. Patient arrived on IV Solutions in Left Antecubital via Peripheral IV. Pump/Drip Flow = 20 ml/h r using NaCl .9. Ordered 17:32:14 by Codey Matta. 17:32:24 History and physical on the chart or being dictated. Vitals capture started with the following parameters, Patient=Adult, Interval=5 min, Initial Pr iiotqf=829 mmHg, 17:35:46 Deflation Rate=5 mmHg, Cuff placed on Right Arm Assessment: Initial Case, HR=86 BPM, Rhythm=nsr, RLFK=936/67 mmhg, Chest Pain=0, Edema=Mild, Co tawana=Normal, Skin = Warm, Dry 17:35:52 Right Pulses: Colton Ped=2, Femoral=2, Radial=2 Neurological: State=Alert, Ox3, MCINTOSH Respiration: Resp=15 B/min, SpO2=95 % 17:36:05 Reference ECG taken 17:36:36 HR=82 bpm, UNXW=704/84 mmhg, SpO2=95 %, Resp=15 B/min, Pain=0, Spring=10, Blackburn=1 17:39:59 Right Radial and groin(s) prepped with 2% chlorhexidine, and draped after a 3 min. waiting time. 17:41:37 HR=78 bpm, BCQP=766/66 mmhg 17:44:48 Pressure channel 1 zeroed. 17:46:30 HR=85 bpm, GXKN=787/77 mmhg, SpO2=93.0 % 17:51:33 HR=85 bpm, FVHI=934/67 mmhg, SpO2=89.0 % 17:56:47 HR=88 bpm, GMVE=970/44 mmhg, SpO2=97.0 % 18:01:36 HR=80 bpm, JOWZ=331/64 mmhg, SpO2=91.0 % 18:06:33 HR=85 bpm, PDFX=683/70 mmhg, SpO2=73.0 % 18:10:03 MD arrived. 18:11:34 HR=77 bpm, UVYD=652/58 mmhg, SpO2=85.0 % Time Out. Correct patient, correct procedure, correct physician, labs, allergies, and equipment verified with laboratory equipment installer 18:11:46 team present. Fire risk assesment completed (see hard stop sheet for coding). Time Out Conc urred by MD and individual staff in procedure. 18:12:00 2 mg VERSED given in lab by Radhika Mccloud, RN via Peripheral IV. Ordered by Codey Matta . 18:12:40 Case Start 18:12:40 5 mL 1% XYLOCAINE given in lab by Codey Matta in Right Radial via Subcutaneous. Ordered by Codey Matta. 18:14:00 50 mcg FENTANYL given in lab by Radhika Mccloud, RN via Peripheral IV. Ordered by Gregoria Matta. 18:15:29 Access site was Right Radial Artery. 18:15:47 A wire was inserted via Radial (right). A SHEATH, FR6 RADIAL PRELUDE EASE 11CM FR 6 was advanced into the Fem Art (right) using the Per cutaneous 18:15:55 technique. 18:16:37 HR=79 bpm, YOKO=516/56 mmhg, SpO2=89.0 % 5 mL (Bolus) RADIAL COCKTAIL given in lab by Codey Matta via Radial. Using [Solution Name]. Or dered by Sigrid 18:17:00 Codey. Reason: Ntg 200mcg Verapamil 2.5mg Heparin 2500U. A CATHETER, FR5 OPTITORQUE RADIAL TIG 4.0 FR 5 was advanced over a wire. OMNIPAQUE, 350 MG, 150 ML 150ML 18:17:11 was used for injections. 18:19:57 Catheter was removed A JL 4.0 INFINITI CATHETER FR 6 was advanced over a wire. OMNIPAQUE, 350 MG, 150ML 150ML was us ed for 18:20:39 injections. 18:21:36 HR=83 bpm, NIBP=94/51 mmhg, SpO2=91 % After removing the current catheter a AL 1 INFINITI CATHETER FR 6 was advanced over a WIRE, EXC HANGE 260CM 18:22:50 3MMJ 260CM. Recorded Pressure: Ao, HR=81, Condition=Condition 1 18:23:51 (Aorta) Ao 113/70/88 18:24:01 The RCA was injected and visualized at various angles. OMNIPAQUE, 350 MG, 150ML 150ML used . 18:26:33 HR=80 bpm, VGNP=204/60 mmhg, SpO2=91 % 18:28:25 Catheter was removed A JL 4.5 INFINITI CATHETER FR 6 was advanced over a wire. OMNIPAQUE, 350 MG, 150ML 150ML was us ed for 18:28:56 injections. 18:31:34 HR=83 bpm, LKJM=321/67 mmhg, SpO2=86.0 % 18:33:00 0.5 mg VERSED given in lab by Radhika Mccloud, IVA via Peripheral IV. Ordered by Ramakrishna Matta. After removing the current catheter a AL 1 INFINITI CATHETER FR 6 was advanced over a WIRE, EXC HANGE 260CM 18:33:03 3MMJ 260CM. 18:34:00 0.5 mg VERSED given in lab by Radhika Mccloud RN via Peripheral IV. Ordered by Ramakrishna Matta 18:34:37 The LCA was injected and visualized at various angles. OMNIPAQUE, 350 MG, 150ML 150ML used . 18:36:00 25 mcg FENTANYL given in lab by Radhika Mccloud RN via Peripheral IV. Ordered by Gregoria Matta 18:36:39 HR=79 bpm, GIOG=147/67 mmhg, SpO2=91 % 18:41:33 68468 units HEPARIN given in lab by Radhika Mccloud RN via Peripheral IV. Ordered by Codey Vuong. 18:41:40 HR=79 bpm, DIGS=262/57 mmhg, SpO2=90.0 % After removing the current catheter a AL 1 GUIDE CATHETER FR 6 was advanced over a WIRE, Chalkboard GE 260CM 18:43:37 3MMJ 260CM. 18:44:36 Catheter was removed 18:45:56 20 mL 1% XYLOCAINE given in lab by Codey Matta in Right Groin via Subcutaneous. Ordered by Codey Matta. 18:46:39 HR=84 bpm, CLTX=931/62 mmhg, SpO2=90 % 18:48:00 25 mcg FENTANYL given in lab by Radhika Mccloud RN via Peripheral IV. Ordered by Gregoria Matta 18:50:00 0.5 mg VERSED given in lab by Radhika Mccloud RN via Peripheral IV. Ordered by Ramakrishna Matta 18:52:27 HR=87 bpm, NIBP=99/69 mmhg, SpO2=94.0 % 18:54:17 Activated Clotting Time Drawn 18:54:23 Access site was Right Femoral Artery. 18:54:28 A SHEATH, FR6.5 PRELUDE 11CM FR 6.5 was advanced into the Fem Art (right) using the Percuta neous technique. 18:55:23 A AL 1 GUIDE CATHETER FR 6 was advanced over a wire. OMNIPAQUE, 350 MG, 150ML 150ML was use d for injections. 18:56:37 HR=82 bpm, RKUI=538/54 mmhg, SpO2=93.0 % 18:57:39 A WIRE, [employer] 180CM 180CM was inserted via Fem Art (right). 18:58:35 ACT (Normal Range 90-180) = 261 18:59:31 Interventional wire has crossed the lesion 19:01:32 A WIRE, BALANCE MIDDLEWEIGHT 190CM 190CM was inserted via Fem Art (right). 19:01:36 HR=80 bpm, UOXT=460/67 mmhg, SpO2=96 %, Resp=18 B/min 19:05:16 Aspiration catheter inserted on BMW 19:06:41 HR=77 bpm, JBQV=508/55 mmhg, SpO2=96.0 % 19:06:57 BMW Wire removed 19:07:40 Aspiration in progress 19:08:36 export Catheter was removed 19:09:07 A WIRE, BALANCE MIDDLEWEIGHT 190CM 190CM was inserted via Fem Art (right). 19:11:42 HR=77 bpm, XHUJ=239/57 mmhg, SpO2=96.0 % A BALLOON, 2.5 X 15MM EUPHORA 15MM was inserted over WIRE, ASAHI PROWATER 180CM 180CM via the F em Art 19:11:46 (right). A BALLOON, 2.5 X 15MM EUPHORA 15MM over a WIRE, ASAHI PROWATER 180CM 180CM in the LAD Prox was inflated 19:12:22 using a 30 CONSTANTIN INDEFLATOR at 14 constantin for 32 sec. 19:13:45 Balloon Removed. 19:14:00 0.5 mg VERSED given in lab by Radhika Mccloud RN via Peripheral IV. Ordered by Ramakrishna Matta. A BALLOON, 2.5 X 15MM EUPHORA 15MM was inserted over WIRE, BALANCE MIDDLEWEIGHT 190CM 190CM via the 19:15:40 Fem Art (right). 19:16:39 HR=75 bpm, BCHP=071/68 mmhg, SpO2=95.0 % A BALLOON, 2.5 X 15MM EUPHORA 15MM over a WIRE, BALANCE MIDDLEWEIGHT 190CM 190CM in the DIAG Pr ox 19:17:19 was inflated using a 30 CONSTANTIN INDEFLATOR at 13 constantin for 40 sec. 19:18:44 Balloon Removed. 19:20:15 Wire removed A STENT, 3.0 15MM XAVIER 3.0 15MM was advanced through a AL 1 GUIDE CATHETER FR 6 over a WIRE, AHI 19:20:32 PROWATER 180CM 180CM. A STENT, 3.0 15MM XAVIER 3.0 15MM was deployed using a 30 CONSTANTIN INDEFLATOR at 15 atmospheres for 30 seconds in 19:20:47 the LAD Prox. 19:21:43 HR=78 bpm, IULI=053/64 mmhg, SpO2=95.0 % 19:21:52 Delivery device removed 19:23:41 100 mcg NTG (IC) given in lab by Codey Matta via Intra-coronary. Ordered by Codey Matta. 19:26:40 HR=79 bpm, FBGG=938/64 mmhg, SpO2=93.0 % 19:27:19 Aspiration catheter inserted 19:27:58 Aspiration in progress 19:29:22 Catheter was removed 19:31:41 HR=80 bpm, NLWD=109/67 mmhg, SpO2=96.0 % 0 mcg/kg/min AGGRASTAT BOLUS given in lab by Radhika Mccloud RN via Peripheral IV. Pump/Drip Flow = 75 ml/hr 19:32:24 using D5W. Ordered by Codey Matta. 0.131 mcg/kg/min AGGRASTAT DRIP given in lab by Radhika Mccloud, IVA via Peripheral IV. Pump/Dr ip Flow = 27 19:33:25 ml/hr using NaCl .9 with a concentration of 12.5 mg in 250 ml. Ordered by Codey Matta. A STENT, 3.0 8MM XAVIER 3.0 8MM was advanced through a AL 1 GUIDE CATHETER FR 6 over a WIRE, ASAH I 19:34:21 PROWATER 180CM 180CM. A STENT, 3.0 8MM XAVIER 3.0 8MM was deployed using a 30 CONSTANTIN INDEFLATOR at 15 atmospheres for 32 s econds in the 19:34:31 LAD Prox. 19:35:57 Delivery device removed 19:36:35 Wire removed 19:36:38 Catheter was removed 19:36:40 HR=78 bpm, FWST=341/73 mmhg A PIGTAIL STR INFINITI CATHETER FR 6 was advanced over a wire. OMNIPAQUE, 350 MG, 150ML 150ML w as used for 19:37:03 injections. Recorded Pressure: LV, HR=77, Condition=Condition 1 19:37:59 (Left Ventricle) LV 149/12/34 19:39:45 The LV was injected at 12 cc/sec for a total of 35. OMNIPAQUE, 350 MG, 150ML 150ML used. Recorded Pressure: LV, Ao, HR=81, Condition=Condition 1 19:40:00 (Left Ventricle) LV 129/11/37, (Aorta) Ao 145/79/106 19:40:11 Catheter was removed 19:41:39 An injection in the Fem Art (right) was made through the SHEATH, FR6.5 PRELUDE 11CM FR 6.5 . 19:41:45 HR=78 bpm, IUYL=137/65 mmhg, SpO2=97.0 % 19:42:00 Case End (Physician broke scrub) 19:46:42 HR=79 bpm, QHTP=240/80 mmhg, SpO2=98.0 % Assessment: Final Case, HR=86 BPM, Rhythm=nsr, QMNK=107/67 mmhg, Chest Pain=0, Edema=Mild, Col or=Normal, Skin = Warm, Dry 19:48:24 Right Pulses: Colton Ped=2, Femoral=2, Radial=2 Neurological: State=Alert, Ox3, MCINTOSH Respiration: Resp=15 B/min, SpO2=95 % 19:48:28 Catheter(s) removed without difficulty 19:48:34 ANGIOSEAL, FR6 VIP FR 6 placement in the Fem Art (right) Radial Compression Device Used. 15 mLs of air placed in BAND, RADIAL COMPRESSION TR LARGE 29 2 9CM. Affected 19:48:34 hand 100 % O2 saturation. 19:48:36 Sterile dressing applied to site 19:48:37 No case complications noted. 19:48:39 Bedside Report will be given. 19:48:41 Implantable Device card placed in patient's chart. 19:48:45 A Left Heart Cath was performed. 19:51:45 HR=77 bpm, RBWN=478/78 mmhg, SpO2=95.0 % 19:55:22 600 mg PLAVIX given in lab by Radhika Mccloud RN via Oral. Ordered by Codey Matta. 19:56:50 HR=77 bpm, QFVT=379/65 mmhg, SpO2=97.0 % 20:01:43 HR=80 bpm, RWSA=585/84 mmhg 20:05:23 Patient moved to [facility] End Study - Contrast Media Used In Study Contrast Total Opened (mL) Total Used (mL) Total Wasted (mL) Omnipaque 280 280 0 End Study - Maximum Contrast Load Max Contrast Load (mL) 1071.3 End Study - Radiation Exposure Fluoro Time (minutes) 27.3 End Study - Patient Disposition Complications Transferred To Interventional Outcome No Critical Care Bed successful
--- NOTE | 2018-03-31 20:27 | MA ---
cc: Codey Matta MD DATE: 03/31/2018 PROCEDURE: Difficult left heart catheterization, selective coronary angiography, left ventriculography, thrombectomy/angioplasty/stent x 2 of the proximal LAD. PROCEDURE NOTES: The patient was brought to the cardiac catheterization laboratory in a fasting state after having signed informed consent. The right radial region was prepped and draped as per policy and anesthetized with 1% lidocaine. Arterial access was obtained via the right radial artery and a 6-Mauritanian sheath placed. Coronary arteriography was performed using an Amplatz left 1.0 to engage both the right coronary and the left main. We were unable to engage these vessels with the Burkett catheter or a variety of Mary left catheters. Because the patient started to have considerable pain from spasm in his right radial region, it was decided to do percutaneous coronary intervention through the right femoral arteriotomy approach. Right femoral artery access was obtained without difficulty and a 6-Mauritanian sheath placed. Percutaneous coronary intervention was done as described below. Left ventriculography was done with a standard 6-Mauritanian pigtail. There were no apparent immediate complications. His arteriotomy site in the groin was closed with Angio-Seal. A radial artery compression band was applied to the right wrist to achieve right radial hemostasis. HEMODYNAMIC DATA: Left ventricle 130 with an end diastolic pressure of 11. Aorta 145/79 with a mean of 106. There was no significant transvalvular aortic gradient on pullback of the pigtail catheter. CORONARY ARTERIOGRAPHY: The left main is a large vessel with no disease. The left anterior descending is totally occluded proximally after the takeoff of a small to medium size diagonal, which has 50-60% ostial stenosis. The left circumflex is a fairly large vessel giving rise to a medium-sized obtuse marginal. This obtuse marginal has up to 80% ostial disease. The proximal left circumflex, right at the takeoff of this obtuse marginal, has 40% diffuse disease. The right coronary artery is a medium-sized dominant vessel which is diffusely diseased. There appears to be as much as 40% proximal stenosis. LEFT VENTRICULOGRAPHY: Contrast injection of the left ventricle reveals mild anterior hypokinesis. The ejection fraction is estimated at 55%. PERCUTANEOUS CORONARY INTERVENTION DESCRIPTION: Aggrastat was given as per protocol. Adequate heparin was given during the procedure to achieve an ACT of 261 seconds. Using a 6-Mauritanian Amplatz left 1.0 guiding catheter, the ostium of the left main was reengaged. Using a 0.014 Prowater guidewire, the total occlusion in the LAD was crossed without difficulty and the tip of the wire positioned distally. Wiring the lesion did establish ELENO 1 flow. A Balance Middle Weight guidewire was placed into the diagonal without difficulty. Because of thrombus burden within the LAD lesion and slightly more distally, it was decided to perform thrombectomy. An Alma catheter was used, with 2 passes made. Then, further predilation of the LAD disease was done using a 2.5 mm Euphora balloon catheter. Angiography at this point does suggest some plaque shift into the diagonal, which may result in up to 70% ostial stenosis, so it was decided to perform angioplasty at the ostium of the diagonal using a 2.5 x 15 mm Euphora balloon catheter. Stenting of the LAD was then done using a 3.0 x 15 mm Resolute Pedro stent, which was deployed at 15 atmospheres for 30 seconds. Intracoronary nitroglycerin was administered twice. There does appear to be residual 50% stenosis at the ostium of the diagonal. In addition, there is a globular, undulating echodensity at the distal edge of the stent. The Alma catheter was advanced again into this region. However, it did not change the angiographic appearance of this globular density. It was decided to place another stent, a 3.0 x 8 mm Resolute Hassell, which was deployed slightly overlapping the initial stent at 15 atmospheres for 30 seconds. This does improve the angiographic appearance of the LAD, and the globular lesion resolves. Final angiography shows overall good results with reduction of the initial total occlusion to 0% residual with no evidence of a dissection or distal embolization. There is eccentric 30-50% stenosis at the ostium of the diagonal. Overall, the patient tolerated the procedure well. There were no apparent, immediate complications. CONCLUSIONS: 1. Moderate to severe 3-vessel coronary artery disease. 2. Right dominant system. 3. Status post thrombectomy, angioplasty, stent x 2 of a totally occluded proximal left anterior descending. 4. Overall normal left ventricular function with estimated ejection fraction of 55%. DISCUSSION: The residual disease at the ostium of the obtuse marginal will be treated medically. The obtuse marginal originates from the left circumflex at a very acute angle. It would be very difficult to wire this obtuse marginal, and it would not be possible to stent this vessel without protrusion of the stent into the left circumflex. MD MIGUEL Perales/MOLLY , 07:59 PM , 08:26 PM NICK
[2018-04-01] MEDS: Sod Chloride 0.9% Inj 1,000 ML IV.CONT SCH ×2 (00:02→08:29)
[2018-04-01] MEDS: Tirofiban Inj 12,500 MCG/250 ML PLAST..BAG IV.CONT SCH ×2 (02:16→08:29)
[2018-04-01] MEDS: Morphine Inj 4 MG/ML Vial IV.PUSH PRN (06:27)
[2018-04-01 08:07] LABS: Hematocrit 44.2 % (39.0-51.0); Hemoglobin 14.7 gm/dL (13.0-17.0); Mean Corpuscular HGB Conc 33.2 % (32.0-36.0); Mean Corpuscular Hemoglobin 30.6 pg (27.0-34.0); Mean Corpuscular Volume 92.1 fL (80.0-100.0); Mean Platelet Volume 9.4 fL (7.0-11.0); Platelet Count 151 th/mm3 (150-450); Red Cell Distribution Width 14.4 % (11.6-17.2)
--- NOTE | 2018-04-01 08:23 | P.DS ---
Date of admission: 03/30/18 21:14 Primary care physician: No Primary Care Physician Brief History from admission: 47-year-old male with past medical history significant for COPD presents the emergency department for the evaluation of left-sided chest pain that radiates down his left arm. The patient reports that approximately 2 hours ago he suddenly developed left-sided chest pain that radiated down his left arm with accompanying diaphoresis, shortness of breath and dizziness. The episode was followed by nausea. He reports that the pain was so great that he came to the emergency department for further evaluation. He denies any headaches. No fever /chills. No lateralizing signs/symptoms. DS: Medications - Discharge Medications Prescriptions: aspirin 325 mg PO DAILY #30 tab atorvastatin [Lipitor] 10 mg PO HS #30 tab clopidogrel [Plavix] 75 mg PO DAILY #30 tab enalapril maleate 5 mg PO BID #30 tab metoprolol tartrate 12.5 mg PO BID #60 tab nitroglycerin [Nitrostat] 0.4 mg SUBLINGUAL Q5-15M PRN #30 tab PRN Reason: chest pain DS: Summary Hospital Course: GENERAL: Morbidly obese well nourished well developed male patient. Patient in bed appears in nad. CARDIOVASCULAR: Regular rate and rhythm without murmurs, gallops, or rubs. RESPIRATORY: Breath sounds equal bilaterally. No accessory muscle use. GASTROINTESTINAL: Abdomen soft, non-tender, nondistended. MUSCULOSKELETAL: No cyanosis, or edema. BACK: Nontender without obvious deformity. No CVA tenderness. Assessment and Plan //NSTEMI 1. NSTEMI Troponin elevated 0.[address] segment elevations or depressions, personally reviewed Aspirin, morphine, nitro Heparin drip Cardiology consulted, appreciate recommendations = Continue chest pain. Continue heparin drip, aspirin. Troponin up to 4.18. I discussed with nursing, who will contact cardiology for catheterization. Will increase patient's Nitro-Bid to 1.5 inches every 6 hours. Had cardiac catheterization with stents placed by Dr. Vidales S/p NSTEMI and PCI of totally occluded proximal LAD. No further angina. No CHF /arrhythmias. Lipid profile good. Radial and femoral arteriotomy sites stable. EF overall normal, ~55%. Continue present medications, Plavix for a year per cardio // COPD Duo nebs as needed FEN N.p.o. Electrolytes: Monitor and replete as needed Heparin drip Discharge Planning: Had cardiac catheterization with stents placed by Dr. Matta however the patient decided to leave AMA after cardiac cath Patient left AMA - Time Spent with Patient Total time spent providing and/or coordinating discharge services: Greater than 30 minutes - Quality: VTE Deep Vein Thrombosis/Pulmonary Embolism Present on Admission: No Exam Vital signs: Vital Signs 03/31/18 09:00 03/31/18 10:00 03/31/18 10:30 Temperature Pulse Rate 76 72 Respiratory Rate 20 Blood Pressure Pulse Oximetry 03/31/18 11:00 03/31/18 11:34 03/31/18 12:00 Temperature 97.4 F L Pulse Rate 78 72 76 Respiratory Rate 16 Blood Pressure 121/75 Pulse Oximetry 94 L 03/31/18 13:00 03/31/18 13:10 03/31/18 13:32 Temperature 98.1 F Pulse Rate 70 68 Respiratory Rate 20 22 Blood Pressure 116/69 Pulse Oximetry 97 03/31/18 14:00 03/31/18 15:00 03/31/18 15:58 Temperature Pulse Rate 64 74 Respiratory Rate 20 Blood Pressure Pulse Oximetry 03/31/18 16:00 03/31/18 20:00 03/31/18 21:00 Temperature 98.1 F 98.6 F Pulse Rate 64 79 89 Respiratory Rate 22 18 Blood Pressure 124/62 101/57 L Pulse Oximetry 97 96 03/31/18 22:00 03/31/18 23:00 04/01/18 00:00 Temperature 98.2 F Pulse Rate 88 77 88 Respiratory Rate 18 Blood Pressure 123/68 Pulse Oximetry 98 04/01/18 01:00 04/01/18 02:00 04/01/18 03:00 Temperature Pulse Rate 78 74 68 Respiratory Rate Blood Pressure Pulse Oximetry 04/01/18 04:00 04/01/18 05:00 04/01/18 06:00 Temperature 98.4 F Pulse Rate 74 86 82 Respiratory Rate 18 Blood Pressure 110/67 Pulse Oximetry 98 04/01/18 07:00 04/01/18 07:23 Temperature 98.0 F Pulse Rate 73 74 Respiratory Rate 16 Blood Pressure 118/73 Pulse Oximetry 96 Intake & Output 03/31/18 04/01/18 04/01/18 18:59 06:59 18:59 Intake Total 2450 / 2450 Output Total 1125 / 1125 Balance 1325 / 1325 Weight 181.8 kg Intake: IV 1250 / 1250 NS Inj 1,000 ML @ 100 mls/hr IV 1000 / 1000 .CONT .Q10H [facility] Rx#:[id number] Aggrastat Inj 12,500 mcg In 250 250 / 250 ml @ 0.15 MCG/KG/MIN 30.862 mls/hr IV.CONT .Q8H7M [facility] Rx#: [id number] Oral 1200 / 1200 Output: Urine 1125 / 1125 Other: Date of Last Bowel Movement 03/31/18 Results Procedures completed during hospitalization: cardiac cath Labs on day of discharge: Labs from last 24 hours 04/01/18 03/31/18 03/31/18 06:50 10:20 09:28 WBC 9.0 RBC 4.80 Hgb 14.7 Hct 44.2 MCV 92.1 MCH 30.6 MCHC 33.2 RDW 14.4 Plt Count 151 MPV 9.4 Hematology Comments APTT 28.5 Total Creatine Kinase CK-MB (CK-2) CK-MB (CK-2) % Troponin I Urine Opiates Screen Pos H Ur Barbiturates Screen Neg Ur Amphetamines Screen Neg U Benzodiazepines Scrn Neg Urine Cocaine Screen Neg U Cannabinoids Screen Pos H 03/31/18 09:28 WBC RBC Hgb Hct MCV MCH MCHC RDW Plt Count MPV Hematology Comments APTT Total Creatine Kinase 588 H CK-MB (CK-2) 94.0 H CK-MB (CK-2) % 16.0 H* Troponin I 9.73 H* Urine Opiates Screen Ur Barbiturates Screen Ur Amphetamines Screen U Benzodiazepines Scrn Urine Cocaine Screen U Cannabinoids Screen - Impressions ITS Impressions Chest X-Ray 03/30/18 19:41 CONCLUSION: No acute findings. Stable cardiomegaly. Discharge Plan - Discharge Disposition Patient Disposition: Left Against Medical Advice - Discharge Condition Condition: Good - Discharge Order Discharge Orders: AMA Discharge (Routine); Ordered 04/01/18 Ordered By: Laquita Aparicio - Discharge Details Anticipated Discharge Date: 04/02/18 - Physicians Team Primary Care Provider: Primary Care Renée,Jaylin Attending Provider: Laquita Aparicio Other Providers: Krish Martell DO
[2018-04-01] MEDS: Metoprolol Tartrate 25 MG Tablet PO SCH (08:26)
[2018-04-01] MEDS ORDERED: Iohexol 350 MG/ML 100 ML Vial (for Cath Lab) IVCONTRAST ONE (08:33)
--- NOTE | 2018-04-01 08:44 | P.PN ---
Physical Exam Vital signs: Vital Signs 03/31/18 09:00 03/31/18 10:00 03/31/18 10:30 Temperature Pulse Rate 76 72 Respiratory Rate 20 Blood Pressure Pulse Oximetry 03/31/18 11:00 03/31/18 11:34 03/31/18 12:00 Temperature 97.4 F L Pulse Rate 78 72 76 Respiratory Rate 16 Blood Pressure 121/75 Pulse Oximetry 94 L 03/31/18 13:00 03/31/18 13:10 03/31/18 13:32 Temperature 98.1 F Pulse Rate 70 68 Respiratory Rate 20 22 Blood Pressure 116/69 Pulse Oximetry 97 03/31/18 14:00 03/31/18 15:00 03/31/18 15:58 Temperature Pulse Rate 64 74 Respiratory Rate 20 Blood Pressure Pulse Oximetry 03/31/18 16:00 03/31/18 20:00 03/31/18 21:00 Temperature 98.1 F 98.6 F Pulse Rate 64 79 89 Respiratory Rate 22 18 Blood Pressure 124/62 101/57 L Pulse Oximetry 97 96 03/31/18 22:00 03/31/18 23:00 04/01/18 00:00 Temperature 98.2 F Pulse Rate 88 77 88 Respiratory Rate 18 Blood Pressure 123/68 Pulse Oximetry 98 04/01/18 01:00 04/01/18 02:00 04/01/18 03:00 Temperature Pulse Rate 78 74 68 Respiratory Rate Blood Pressure Pulse Oximetry 04/01/18 04:00 04/01/18 05:00 04/01/18 06:00 Temperature 98.4 F Pulse Rate 74 86 82 Respiratory Rate 18 Blood Pressure 110/67 Pulse Oximetry 98 04/01/18 07:00 04/01/18 07:23 Temperature 98.0 F Pulse Rate 73 74 Respiratory Rate 16 Blood Pressure 118/73 Pulse Oximetry 96 Intake & Output 03/31/18 04/01/18 04/01/18 18:59 06:59 18:59 Intake Total 2450 / 2450 1250 / 1250 Output Total 1125 / 1125 Balance 1325 / 1325 1250 / 1250 Weight 181.8 kg Intake: IV 1250 / 1250 1250 / 1250 NS Inj 1,000 ML @ 100 mls/hr IV 1000 / 1000 1000 / 1000 .CONT .Q10H [facility] Rx#:[id number] Aggrastat Inj 12,500 mcg In 250 250 / 250 250 / 250 ml @ 0.15 MCG/KG/MIN 30.862 mls/hr IV.CONT .Q8H7M [facility] Rx#: [id number] Oral 1200 / 1200 Output: Urine 1125 / 1125 Other: Date of Last Bowel Movement 03/31/18 Narrative: Subjective Patient is in bed he does not appear in acute distress at this time. He denies having any chest pain or shortness of breath. No nausea vomiting no diaphoresis. Says he feels much better and he is going home. Says he is going to leave AMA. Discussed at length with the patient also Dr. Matta cardiology doctors discussed with the patient however the patient decided and he did leave AMA. Discussed with Dr. Vidales we did give medications prescriptions at discharge. Physical exam GENERAL: Morbidly obese well nourished well developed male patient. Patient in bed appears in nad. CARDIOVASCULAR: Regular rate and rhythm without murmurs, gallops, or rubs. RESPIRATORY: Breath sounds equal bilaterally. No accessory muscle use. GASTROINTESTINAL: Abdomen soft, non-tender, nondistended. MUSCULOSKELETAL: No cyanosis, or edema. BACK: Nontender without obvious deformity. No CVA tenderness. Assessment and Plan //NSTEMI 1. NSTEMI Troponin elevated 0.[address] segment elevations or depressions, personally reviewed Aspirin, morphine, nitro Heparin drip Cardiology consulted, appreciate recommendations = Continue chest pain. Continue heparin drip, aspirin. Troponin up to 4.18. I discussed with nursing, who will contact cardiology for catheterization. Will increase patient's Nitro-Bid to 1.5 inches every 6 hours. Had cardiac catheterization with stents placed by Dr. Vidales S/p NSTEMI and PCI of totally occluded proximal LAD. No further angina. No CHF /arrhythmias. Lipid profile good. Radial and femoral arteriotomy sites stable. EF overall normal, ~55%. Continue present medications, Plavix for a year per cardio // COPD Duo nebs as needed FEN N.p.o. Electrolytes: Monitor and replete as needed Heparin drip Discharge Planning: Had cardiac catheterization with stents placed by Dr. Matta however the patient decided to leave AMA after cardiac cath Results - Labs CBC & Chem 7: 04/01/18 06:50 03/31/18 05:45 Laboratory Results - last 24 hr 03/31/18 03/31/18 03/31/18 09:28 09:28 10:20 WBC RBC Hgb Hct MCV MCH MCHC RDW Plt Count MPV Hematology Comments APTT 28.5 Total Creatine Kinase 588 H CK-MB (CK-2) 94.0 H CK-MB (CK-2) % 16.0 H* Troponin I 9.73 H* Urine Opiates Screen Pos H Ur Barbiturates Screen Neg Ur Amphetamines Screen Neg U Benzodiazepines Scrn Neg Urine Cocaine Screen Neg U Cannabinoids Screen Pos H 04/01/18 06:50 WBC 9.0 RBC 4.80 Hgb 14.7 Hct 44.2 MCV 92.1 MCH 30.6 MCHC 33.2 RDW 14.4 Plt Count 151 MPV 9.4 Hematology Comments APTT Total Creatine Kinase CK-MB (CK-2) CK-MB (CK-2) % Troponin I Urine Opiates Screen Ur Barbiturates Screen Ur Amphetamines Screen U Benzodiazepines Scrn Urine Cocaine Screen U Cannabinoids Screen
[2018-04-01] MEDS ORDERED: Metoprolol Inj 5 MG/5 ML Vial IV.PUSH PRN (08:53)
--- NOTE | 2018-04-01 08:57 | P.PNCA ---
Subjective Interval history: Feels "fantastic". Denies CP, SOB, dizziness, palpitations. Minimal right groin and right wrist soreness. Physical Exam Vital signs: Vital Signs 03/31/18 09:00 03/31/18 10:00 03/31/18 10:30 Temperature Pulse Rate 76 72 Respiratory Rate 20 Blood Pressure Pulse Oximetry 03/31/18 11:00 03/31/18 11:34 03/31/18 12:00 Temperature 97.4 F L Pulse Rate 78 72 76 Respiratory Rate 16 Blood Pressure 121/75 Pulse Oximetry 94 L 03/31/18 13:00 03/31/18 13:10 03/31/18 13:32 Temperature 98.1 F Pulse Rate 70 68 Respiratory Rate 20 22 Blood Pressure 116/69 Pulse Oximetry 97 03/31/18 14:00 03/31/18 15:00 03/31/18 15:58 Temperature Pulse Rate 64 74 Respiratory Rate 20 Blood Pressure Pulse Oximetry 03/31/18 16:00 03/31/18 20:00 03/31/18 21:00 Temperature 98.1 F 98.6 F Pulse Rate 64 79 89 Respiratory Rate 22 18 Blood Pressure 124/62 101/57 L Pulse Oximetry 97 96 03/31/18 22:00 03/31/18 23:00 04/01/18 00:00 Temperature 98.2 F Pulse Rate 88 77 88 Respiratory Rate 18 Blood Pressure 123/68 Pulse Oximetry 98 04/01/18 01:00 04/01/18 02:00 04/01/18 03:00 Temperature Pulse Rate 78 74 68 Respiratory Rate Blood Pressure Pulse Oximetry 04/01/18 04:00 04/01/18 05:00 04/01/18 06:00 Temperature 98.4 F Pulse Rate 74 86 82 Respiratory Rate 18 Blood Pressure 110/67 Pulse Oximetry 98 04/01/18 07:00 04/01/18 07:23 Temperature 98.0 F Pulse Rate 73 74 Respiratory Rate 16 Blood Pressure 118/73 Pulse Oximetry 96 Intake & Output 03/31/18 04/01/18 04/01/18 18:59 06:59 18:59 Intake Total 2450 / 2450 1250 / 1250 Output Total 1125 / 1125 Balance 1325 / 1325 1250 / 1250 Weight 181.8 kg Intake: IV 1250 / 1250 1250 / 1250 NS Inj 1,000 ML @ 100 mls/hr IV 1000 / 1000 1000 / 1000 .CONT .Q10H [facility] Rx#:[id number] Aggrastat Inj 12,500 mcg In 250 250 / 250 250 / 250 ml @ 0.15 MCG/KG/MIN 30.862 mls/hr IV.CONT .Q8H7M [facility] Rx#: [id number] Oral 1200 / 1200 Output: Urine 1125 / 1125 Other: Date of Last Bowel Movement 03/31/18 - Constitutional no acute distress - Routine Neck Exam Absent: JVD - Routine Respiratory Exam Present: CTA bilaterally - Routine Cardiovascular Exam Present: RRR, S1, S2. Absent: murmur, gallop - Routine Abdominal Exam Present: soft, normoactive bowel sounds. Absent: tenderness, organomegaly - Routine Extremities Exam Absent: cyanosis, clubbing, edema Comments: Right radial and right femoral arteriotomy sites stable. No hematomas. Normal pulses. Assessment and Plan - Assessment (1) Non-ST elevation (NSTEMI) myocardial infarction Code(s): I21.4 - Non-ST elevation (NSTEMI) myocardial infarction Status: Acute Plan: Doing well s/p NSTEMI and PCI of totally occluded proximal LAD. No further angina. No CHF/arrhythmias. Lipid profile good. Radial and femoral arteriotomy sites stable. EF overall normal, ~55%. REC keep in hospital 24 more hours--->patient declines, wishes to sign out AMA. I stressed risk of sudden if he leaves. Recommend continue present medications, Plavix for a year - Plan Code Status: full code Discussed Condition With: patient and his brother, at length
[2018-04-01] MEDS ORDERED: dilTIAZem 30 MG Tablet PO SCH (09:00)
--- NOTE | 2018-04-01 14:59 | ECG ---
Date Performed: 03/31/2018 Time Performed: 15:35:16 PTAGE: 47 years EKG: Sinus rhythm Possible inferior infarct - age undetermined Nonspecific ST-T waves changes Abnormal ECG PREVIOUS TRACING : 03/31/2018 15.31 When compared to the prior EKG,likely no significant change . DOCTOR: Nelly Renner Interpretating Date/Time 04/01/2018 14:58:32
== END 2018-04-01 09:52 | disposition left against medical advice (07) ==
LOC: NEPE 19:26 → NEDA 21:14 → NEPFCDU 22:15 → HCIS 03-31 11:37 → NEPFCDU 03-31 11:45 → HCIS 03-31 13:00
PROVIDERS: ADMIT Hospitalist; ATTEND Hospitalist

== ENCOUNTER 2018-04-04 11:20 | Observation (INO) ==
--- NOTE | 2018-04-04 12:01 | XR ---
EXAM DATE: 04/04/2018 11:56 AM EDT AGE/SEX: 47 years / Male INDICATIONS: Chest pain. Shortness of breath. CLINICAL DATA: This is the patient's initial encounter. Patient reports that signs and symptoms have been present for 1 day and indicates a pain score of 8/10. MEDICAL/SURGICAL HISTORY: Chronic obstructive pulmonary disease. Smoker. Coronary artery stent . [place] [facility] [place]. . FINDINGS: A single AP view of the chest demonstrates the lungs to be symmetrically aerated without evidence of mass, infiltrate or effusion. The cardiomediastinal contours are unremarkable. Osseous structures a re intact. CONCLUSION: Negative examination. Electronically signed by: Simeon Bear MD 04/04/2018 11:59 AM EDT
[2018-04-04 12:15] LABS: Baso # (Auto) 0.1 th/mm3 (0.0-0.2); Baso % (Auto) 1.1 % (0.0-2.0); Eos # (Auto) 0.2 th/mm3 (0.0-0.4); Eos % (Auto) 2.1 % (0.0-4.0); Hematocrit 46.5 % (39.0-51.0); Hemoglobin 15.5 gm/dL (13.0-17.0); Lymph % (Auto) 17.5 % (9.0-44.0); Mean Corpuscular HGB Conc 33.4 % (32.0-36.0); Mean Corpuscular Hemoglobin 31.5 pg (27.0-34.0); Mean Corpuscular Volume 94.5 fL (80.0-100.0); Mean Platelet Volume 9.6 fL (7.0-11.0); Mono # (Auto) 0.8 th/mm3 (0.0-0.9); Mono % (Auto) 6.9 % (0.0-8.0); Neut # (Auto) 8.2 th/mm3 (1.8-7.7); Neut % (Auto) 72.4 % (16.0-70.0); Platelet Count 208 th/mm3 (150-450); Red Blood Count 4.92 mil/mm3 (4.50-5.90); Red Cell Distribution Width 15.1 % (11.6-17.2); White Blood Count 11.3 th/mm3 (4.0-11.0)
[2018-04-04 12:24] LABS: Activated Partial Thrombo Time 23.1 sec (24.3-30.1)
[2018-04-04 12:36] LABS: Troponin I 0.51 ng/mL (0.02-0.05)
[2018-04-04] MEDS ORDERED: Morphine Inj 4 MG/ML Vial IV.PUSH ONE (12:38)
[2018-04-04 12:40] LABS: Carbon Dioxide 28.3 meq/L (21.0-32.0)
[2018-04-04 12:42] LABS: Potassium 4.7 meq/L (3.5-5.1)
--- NOTE | 2018-04-04 12:44 | ED ---
HPI General Chief Complaint: Chest Pain Stated Complaint: SOB Time Seen by Provider: 04/04/18 11:35 History of Present Illness HPI narrative: This is a 47-year-old male who status post non-STEMI, who left the hospital 2 days ago, presents here with an episode of exertional left-sided jaw pain with associated nausea. Patient states it feels like it did when he had his non-STEMI. The patient reports associated nausea and some diaphoresis. There is no true chest pressure. He states that he still has a 85% occluded vessel that they were not able to stand. He reports taking all his medications as prescribed. 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 He took one nitroglycerin and then became extremely lightheaded. The patient reports that when EVAC arrived, his blood pressure was low. He states that it did improve and come back up again. He still having discomfort in his jaw. There is no other radiation. He rates it as a 6-7 out of 10 on the pain scale. Complete Quality Measures for STEMI Alert Patients Related Data Previous Rx's Medication Instructions Recorded aspirin 325 mg PO DAILY #30 tab 04/01/18 atorvastatin [Lipitor] 10 mg PO HS #30 tab 04/01/18 clopidogrel [Plavix] 75 mg PO DAILY #30 tab 04/01/18 enalapril maleate 5 mg PO BID #30 tab 04/01/18 metoprolol tartrate 12.5 mg PO BID #60 tab 04/01/18 nitroglycerin [Nitrostat] 0.4 mg SUBLINGUAL Q5-15M PRN #30 04/01/18 tab Allergies Allergy/AdvReac Type Severity Reaction Status Date / Time No Known Allergies Allergy Verified 03/30/18 19:37 Review of Systems Except as stated in HPI: all other systems reviewed are negative Eyes Denies blurry vision and Denies diplopia ENT Denies headache(s) and Reports other (Left lateral jaw pain.) Cardiovascular Denies chest pain, Denies chest pain at rest, Reports diaphoresis, Reports radiating jaw, neck or arm pain (Left jaw pain.) and Reports palpitations Respiratory Denies chest congestion, Denies cough and Denies dyspnea Gastrointestinal Reports nausea and Denies vomiting Musculoskeletal Denies myalgias and Denies radiating pain into limb Neurologic Reports dizziness, Denies headache(s) and Denies loss of vision [facility] Medical History Medical History COPD (chronic obstructive pulmonary disease) (Acute) Chest pain (Acute) Coronary artery disease (Acute) Asthma (Acute) Surgical History Surgical History Hx of cardiac catheterization (Acute) Social History Social History Substance History: No History of Abuse Second Hand Smoke Exposure: Yes Smoking Status: Current every day smoker Tobacco Type: Cigarettes How Often Do You Have a Drink Containing Alcohol: Monthly or less Recent Travel in [facility] within the Last 8 Weeks: No Recent Out of Country Travel within the Last 8 Weeks: No Immunization History Tetanus Immunization: >5 Years Hx Influenza Vaccine This Season: Yes Exam Narrative Exam Narrative: GENERAL: Well-developed well-nourished obese male in no acute respiratory distress. SKIN: Focused skin assessment warm/dry. HEAD: Atraumatic. Normocephalic. EYES: No scleral icterus. No injection or drainage. ENT: No nasal bleeding or discharge. Mucous membranes pink and moist. NECK: Trachea midline. Supple. CARDIOVASCULAR: Regular rate and rhythm. No murmur appreciated. RESPIRATORY: No accessory muscle use. Clear to auscultation. Breath sounds equal bilaterally. GASTROINTESTINAL: Abdomen soft, non-tender, nondistended. Hepatic and splenic margins not palpable. MUSCULOSKELETAL: No obvious deformities. No clubbing. No cyanosis. No edema. NEUROLOGICAL: Awake and alert. No obvious cranial nerve deficits. Motor grossly within normal limits. Normal speech. PSYCHIATRIC: Appropriate mood and affect; insight and judgment normal. Course Initial Documented Vital Signs Temperature 98.3 F 04/04/18 11:25 Pulse Rate 74 04/04/18 11:25 Respiratory Rate 20 04/04/18 11:25 Blood Pressure 118/55 L 04/04/18 11:25 Pulse Oximetry 96 04/04/18 11:25 Last Documented Vital Signs Temperature 98.3 F 04/04/18 11:34 Pulse Rate 74 04/04/18 12:31 Respiratory Rate 20 04/04/18 12:31 Blood Pressure 159/63 H 04/04/18 12:31 Pulse Oximetry 95 04/04/18 12:31 Medical Decision Making MDM Narrative Medical decision making narrative: 47-year-old male who status post non-ST elevation [facility] and discharged himself AGAINST MEDICAL ADVICE from the hospital 2 days ago. Troponin is elevated at 0.4. This likely could be just secondary to his previous non-STEMI. Case was discussed with Dr. Lewis who will admit the patient to his service. They will trend his troponins. Patient's creatinine is also 1.6 which is up from 0.8 from his previous visit. He will be given some hydration here in the emergency department and this will be followed up on by the admitting physician as well. The patient will be made a observation patient at this time. Differential Diagnosis Differential Diagnosis: Unstable angina versus isolated jaw pain versus metabolic derangement Lab Data Result diagrams: 04/04/18 11:51 04/04/18 11:51 Lab Results 04/04/18 04/04/18 04/04/18 Range/Units 11:51 11:51 11:51 WBC 11.3 H (4.0-11.0) th/mm3 RBC 4.92 (4.50-5.90) mil/mm3 Hgb 15.5 (13.0-17.0) gm/dL Hct 46.5 (39.0-51.0) % MCV 94.5 (80.0-100.0) fL MCH 31.5 (27.0-34.0) pg MCHC 33.4 (32.0-36.0) % RDW 15.1 (11.6-17.2) % Plt Count 208 D (150-450) th/mm3 MPV 9.6 (7.0-11.0) fL Neut % (Auto) 72.4 H (16.0-70.0) % Lymph % (Auto) 17.5 (9.0-44.0) % [place] % (Auto) 6.9 (0.0-8.0) % Eos % (Auto) 2.1 (0.0-4.0) % Baso % (Auto) 1.1 (0.0-2.0) % Neut # (Auto) 8.2 H (1.8-7.7) th/mm3 Lymph # (Auto) 2.0 (1.0-4.8) th/mm3 [place] # (Auto) 0.8 (0.0-0.9) th/mm3 Eos # (Auto) 0.2 (0.0-0.4) th/mm3 Baso # (Auto) 0.1 (0.0-0.2) th/mm3 WBC Differential . Differential Comment Auto diff final PT 10.0 (9.8-11.6) sec INR 1.0 Ratio APTT 23.1 L (24.3-30.1) sec Sodium 142 (136-145) meq/L Potassium 4.7 (3.5-5.1) meq/L Chloride 111 H (98-107) meq/L Carbon Dioxide 28.3 (21.0-32.0) meq/L Anion Gap 3 L (5-15) meq/L BUN 14 (7-18) mg/dL Creatinine 1.60 H (0.60-1.30) mg/dL Estimated GFR 46 L (>89) mL/min Random Glucose 115 H (74-106) mg/dL Calcium 9.0 (8.5-10.1) mg/dL Troponin I 0.51 H (0.02-0.05) ng/mL Imaging Data Radiologist's impression: Chest X-Ray 04/04/18 11:35 CONCLUSION: Negative examination. Discharge Plan Discharge Disposition Patient Disposition: 30 Still Patient Discharge Details Diagnosis: Chest pain, Elevated troponin, Acute kidney injury, Recent non-ST elevation myocardial infarction Physicians Team ED Provider: Arnoldo Lang Primary Care Provider: Primary Care Jaylin Chinchilla Attending Provider: Brenton Lewis Status ED Status: Admitted Observation Patient
--- NOTE | 2018-04-04 15:21 | P.HP ---
History of Present Illness Service: Hospitalist Primary Care Physician: No Primary Care Physician Chief Complaint: Chest pain History of Present Illness: Mr. Richmond is a 47-year-old male with a recent history of non-STEMI status post 2 stent placement who was discharged from the hospital on 04/01/2018 and now presents to the emergency department due to shoulder and jaw pain. His symptoms started this morning when he was just sitting down. He actually did not have any chest pain. He took nitroglycerine which relieved his discomfort somewhat. He had some nausea but significant diaphoresis. He reports compliance with his medications. Denies any abdominal pain, cough, shortness of breath. Denies any changes in bowel or bladder habits. Recent Cardiac work up Cardiac cath 03/31/2018 1. Moderate to severe 3-vessel coronary artery disease. 2. Right dominant system. 3. Status post thrombectomy, angioplasty, stent x 2 of a totally occluded proximal left anterior descending. 4. Overall normal left ventricular function with estimated ejection fraction of 55%. Cath report also mentions: Difficult to stent obtuse marginal. - Diagnosis (1) Chest pain (2) CAD (coronary artery disease) Review of Systems All other systems reviewed negative except as stated in HPI [facility] - History History Provided By: Patient - Medical History Medical History: Medical History (Last Updated 04/04/18 @ 11:29 by Kai Magana) COPD (chronic obstructive pulmonary disease) Chest pain Coronary artery disease Asthma - Surgical History Surgical History: Surgical History (Last Updated 04/04/18 @ 11:29 by Kai Magana) Hx of cardiac catheterization - Tobacco History Second Hand Smoke Exposure: Yes Tobacco Use In Past 30 Days: Yes Smoking Status: Current every day smoker Tobacco Type: Cigarettes - Alcohol History How Often Do You Have a Drink Containing Alcohol: Monthly or less - Substance Use History Substance History: No History of Abuse - Travel History Recent Travel in the [place] Within the Last 8 Weeks: No Recent Travel Out of the Country Within the Last 8 Weeks: No - Immunization History Tetanus Immunization: >5 Years Hx Influenza Vaccine This Season: Yes Medications and Allergies Active Medications: Active Medications Clopidogrel Bisulfate (Plavix) 75 mg PO DAILY [facility] Enalapril Maleate (Vasotec) 5 mg PO BID [facility] Metoprolol Tartrate (Lopressor) 12.5 mg PO BID [facility]ISY[facility] Nitroglycerin (Nitrostat Sl) 0.4 mg SL Q5M PRN PRN Reason: CHEST PAIN Sodium Chloride (Ns Flush) 2 ml IV.FLUSH UNSCH PRN PRN Reason: FLUSH AFTER USING IV ACCESS Sodium Chloride (Ns Flush) 2 ml IV.FLUSH UNSCH PRN PRN Reason: FLUSH AFTER USING IV ACCESS Last Admin: 04/04/18 13:10 Dose: 2 ml Allergies Allergy/AdvReac Type Severity Reaction Status Date / Time No Known Allergies Allergy Verified 03/30/18 19:37 Exam Vital signs: Vital Signs 04/04/18 11:25 04/04/18 11:34 04/04/18 12:31 Temperature 98.3 F 98.3 F Pulse Rate 74 70 74 Respiratory Rate 20 20 20 Blood Pressure 118/55 L 118/55 L 159/63 H Pulse Oximetry 96 94 L 95 Intake & Output 04/03/18 04/04/18 04/04/18 18:59 06:59 18:59 Weight 172.365 kg Narrative: GENERAL: This is a well-nourished, well-developed patient, in no apparent distress. Morbidly obese. SKIN: No rashes, ecchymoses or lesions. Warm and dry. HEAD: Atraumatic. Normocephalic. No temporal or scalp tenderness. EYES: Pupils equal round and reactive. No injection or drainage. ENT: Nose without bleeding, purulent drainage or septal hematoma. Airway patent. NECK: Trachea midline. No lymphadenopathy. Supple, nontender, no meningeal signs. CARDIOVASCULAR: Regular rate and rhythm without murmurs, gallops, or rubs. No JVD. RESPIRATORY: Clear to auscultation. Breath sounds equal bilaterally. No wheezes , rales, or rhonchi. GASTROINTESTINAL: Abdomen soft, non-tender, nondistended. No guarding. MUSCULOSKELETAL: Extremities without clubbing, cyanosis, or edema. NEUROLOGICAL: Awake and alert. Cranial nerves II through XII intact. No focal neurological deficits. Normal speech. Results - Labs CBC & Chem 7: 04/04/18 11:51 04/04/18 15:22 Labs: Laboratory Results - last 24 hr 04/04/18 04/04/18 04/04/18 11:51 11:51 11:51 WBC 11.3 H RBC 4.92 Hgb 15.5 Hct 46.5 MCV 94.5 MCH 31.5 MCHC 33.4 RDW 15.1 Plt Count 208 D MPV 9.6 Neut % (Auto) 72.4 H Lymph % (Auto) 17.5 [place] % (Auto) 6.9 Eos % (Auto) 2.1 Baso % (Auto) 1.1 Neut # (Auto) 8.2 H Lymph # (Auto) 2.0 [place] # (Auto) 0.8 Eos # (Auto) 0.2 Baso # (Auto) 0.1 WBC Differential . Differential Comment Auto diff final PT 10.0 INR 1.0 APTT 23.1 L Sodium 142 Potassium 4.7 Chloride 111 H Carbon Dioxide 28.3 Anion Gap 3 L BUN 14 Creatinine 1.60 H Estimated GFR 46 L Random Glucose 115 H Calcium 9.0 Troponin I 0.51 H - Imaging Impressions Chest X-Ray 04/04/18 11:35 CONCLUSION: Negative examination. Caprini VTE Risk Assessment Caprini VTE Risk Assessment: Moderate/High Risk (score >= 2) Caprini Risk Assessment Model: Point Value = 1 Point Value = 2 Point Value = 3 Point Value = 5 Age 41-60 Minor surgery BMI > 25 kg/m2 Swollen legs Varicose veins or History of unexplained or recurrent spontaneous Oral contraceptives or hormone replacement Sepsis (< 1 month) Serious lung disease, including pneumonia (< 1 month) Abnormal pulmonary function Acute myocardial infarction Congestive heart failure (< 1 month) History of inflammatory bowel disease Medical patient at bed rest Age 61-74 Arthroscopic surgery Major open surgery (> 45 min) Laparoscopic surgery (> 45 min) Malignancy Confined to bed (> 72 hours) Immobilizing plaster cast Central venous access Age >= 75 History of VTE Family history of VTE Factor V Leiden Prothrombin [id number] Lupus anticoagulant Anticardiolipin antibodies Elevated serum homocysteine Heparin-induced thrombocytopenia Other congenital or acquired thrombophilia Stroke (< 1 month) Elective arthroplasty Hip, pelvis, or leg fracture Acute spinal cord injury (< 1 month) Prophylaxis Regimen: Total Risk Factor Score Risk Level Prophylaxis Regimen 0-1 Low Early ambulation 2 Moderate Order ONE of the following: *Sequential Compression Device (SCD) *Heparin 5000 units SQ BID 3-4 Higher Order ONE of the following medications: *Heparin 5000 units SQ TID *Enoxaparin/Lovenox 40 mg SQ daily (WT < 150 kg, CrCl > 30 mL/min) *Enoxaparin/Lovenox 30 mg SQ daily (WT < 150 kg, CrCl > 10-29 mL/min) *Enoxaparin/Lovenox 30 mg SQ BID (WT < 150 kg, CrCl > 30 mL/min) AND/OR *Sequential Compression Device (SCD) 5 or more Highest Order ONE of the following medications: *Heparin 5000 units SQ TID (Preferred with Epidurals) *Enoxaparin/Lovenox 40 mg SQ daily (WT < 150 kg, CrCl > 30 mL/min) *Enoxaparin/Lovenox 30 mg SQ daily (WT < 150 kg, CrCl > 10-29 mL/min) *Enoxaparin/Lovenox 30 mg SQ BID (WT < 150 kg, CrCl > 30 mL/min) AND *Sequential Compression Device (SCD) Assessment and Plan - Assessment (1) Chest pain Code(s): R07.9 - Chest pain, unspecified Status: Acute (2) CAD (coronary artery disease) Code(s): I25.10 - Atherosclerotic heart disease of [place] coronary artery without angina pectoris Status: Acute - Plan Mr. Richmond is a pleasant 47-year-old morbidly obese male with a history of coronary artery disease status post 2 stents placed who presents to the emergency department due to shoulder and jaw pain as well as diaphoresis relieved by nitroglycerin. Patient has been compliant with his medications. Chest pain Coronary artery disease - status post stent placement few days ago. -Patient's chest pain is concerning for cardiac origin. -Troponins are elevated to 0.51, 0.35. His troponin on 03/31/2018 was 4.18, 9.73. -Low elevation of downtrending troponin likely due to recent NSTEMI. -Probably medical management. However, we will consult Cardiology for their input. -Continue aspirin 81 mg, Plavix 75 mg, metoprolol tartrate 25 mg twice daily , enalapril 5 mg p.o. twice daily. -Morphine 5 mg every 4 hours as needed for pain. Nitroglycerin as needed. -Increase Lipitor to 80 mg nightly. -We will start isosorbide mononitrate 60 mg daily. Morbid obesity Tobacco abuse - Patient counselled. Acute kidney injury - Creatinine improved from 1.60 on admission to 1.14. Full code. Lovenox.
[2018-04-04 16:29] LABS: Alanine Aminotransferase 29 U/L (12-78); Albumin 2.9 g/dL (3.4-5.0); Alkaline Phosphatase 65 U/L (45-117); Anion Gap 7 meq/L (5-15); Aspartate Aminotransferase 25 U/L (15-37); Blood Urea Nitrogen 11 mg/dL (7-18); Calcium 7.7 mg/dL (8.5-10.1); Carbon Dioxide 21.8 meq/L (21.0-32.0); Chloride 114 meq/L (98-107); Creatine Kinase 118 U/L (39-308); Glomerular Filtration Rate 68 mL/min (>89); Glucose,Random 88 mg/dL (74-106); Potassium 4.3 meq/L (3.5-5.1); Sodium 143 meq/L (136-145); Total Protein 6.6 g/dL (6.4-8.2); Troponin I 0.35 ng/mL (0.02-0.05)
[2018-04-04] MEDS: Morphine Inj 4 MG/ML Vial IV.PUSH PRN ×2 (16:55→20:28)
[2018-04-04] MEDS: Metoprolol Tartrate 25 MG Tablet PO SCH (20:00)
[2018-04-04] MEDS: Enoxaparin Inj 40 MG/0.4 ML Syringe SQ SCH (20:17)
[2018-04-04] MEDS ORDERED: Metoprolol Tartrate 25 MG Tablet PO SCH (21:00)
[2018-04-05] MEDS: Morphine Inj 4 MG/ML Vial IV.PUSH PRN ×2 (01:57→06:27)
[2018-04-05] MEDS ORDERED: Isosorbide Mononitrate 60 MG ER 24HR Tablet (Imdur) PO SCH (07:00)
[2018-04-05 08:20] VITALS: BP 132/84; RESP 18; TEMP 97.8; O2SAT 95
[2018-04-05] MEDS: Metoprolol Tartrate 25 MG Tablet PO SCH (08:30)
[2018-04-05] MEDS: Enoxaparin Inj 40 MG/0.4 ML Syringe SQ SCH (08:31)
[2018-04-05 09:29] VITALS: PULSE 66
--- NOTE | 2018-04-05 10:05 | ECG ---
Date Performed: 04/04/2018 Time Performed: 23:10:16 PTAGE: 47 years EKG: Sinus rhythm ABNORMAL ECG PREVIOUS TRACING : 04/04/2018 15.26 DOCTOR: Danny Kat Interpretating Date/Time 04/05/2018 10:03:57
--- NOTE | 2018-04-05 11:03 | ECG ---
Date Performed: 04/04/2018 Time Performed: 15:26:55 PTAGE: 47 years EKG: Sinus rhythm T-WAVE ABNORMALITY, CONSIDER ANTERIOR ISCHEMIA ABNORMAL ECG PREVIOUS TRACING : 04/04/2018 11.28 DOCTOR: Danny Kat Interpretating Date/Time 04/05/2018 11:01:35
--- NOTE | 2018-04-05 11:13 | ECG ---
Date Performed: 04/04/2018 Time Performed: 11:28:28 PTAGE: 47 years EKG: Sinus rhythm MODERATE T-WAVE ABNORMALITY, CONSIDER ANTEROLATERAL ISCHEMIA ABNORMAL ECG NO PREVIOUS TRACING DOCTOR: Danny Kat Interpretating Date/Time 04/05/2018 11:12:23
--- NOTE | 2018-04-05 11:24 | P.PN ---
Subjective Interval history: Follow up for chest/shoulder/jaw pain with recent NSTEMI. The patient reports he is only having chest pains today when he gets aggravated, but he denies any pains comparable to yesterday. Denies any shortness of breath. He says he has a little bit of wheezing at baseline with his COPD. He adamantly wants to go home and states he is probably leaving at noon today regardless of what's recommended. We discussed risks of him leaving the hospital, including heart attack and , he verbalized understanding. He has no other medical complaints at this time. Physical Exam Vital signs: Vital Signs 04/04/18 11:25 04/04/18 11:34 04/04/18 11:35 Temperature 98.3 F 98.3 F Pulse Rate 74 70 94 H Respiratory Rate 20 20 Blood Pressure 118/55 L 118/55 L Pulse Oximetry 96 94 L 04/04/18 12:31 04/04/18 15:52 04/04/18 16:47 Temperature 97.8 F Pulse Rate 74 76 Respiratory Rate 20 20 18 Blood Pressure 159/63 H 149/81 H Pulse Oximetry 95 95 04/04/18 18:39 04/04/18 20:00 04/04/18 23:48 Temperature 98.3 F Pulse Rate 66 75 Respiratory Rate 16 15 Blood Pressure 128/76 Pulse Oximetry 96 04/05/18 00:00 04/05/18 04:00 04/05/18 08:00 Temperature 98.4 F 97.5 F L 97.8 F Pulse Rate 77 70 76 Respiratory Rate 18 16 18 Blood Pressure 106/65 120/64 132/84 Pulse Oximetry 94 L 96 95 04/05/18 09:28 Temperature Pulse Rate 66 Respiratory Rate Blood Pressure Pulse Oximetry Intake & Output 04/04/18 04/05/18 04/05/18 18:59 06:59 18:59 Intake Total 500 / 500 500 / 500 Balance 500 / 500 500 / 500 Weight 172.365 kg Intake: Oral 500 / 500 500 / 500 Narrative: GENERAL: Well-nourished, well-developed obese male patient in [facility]. SKIN: Warm and dry. No rash. Right groin with large 12inch area of ecchymosis from prior catheterization. HEENT: Normocephalic. Atraumatic. Pupils equal and round. Mucous membranes pink and moist. CARDIOVASCULAR: Regular rate and rhythm. No murmur appreciated. RESPIRATORY: No accessory muscle use. Minimal anterior end expiratory wheezing, otherwise clear to auscultation. Breath sounds equal bilaterally. GASTROINTESTINAL: Abdomen soft, non-tender, nondistended. Normoactive bowel sounds x4. MUSCULOSKELETAL: No obvious deformities. Extremities without clubbing, cyanosis , or edema. NEUROLOGICAL: Awake and alert. No obvious cranial nerve deficits. Motor grossly within normal limits. Moving all extremities spontaneously. Normal speech. Results - Labs CBC & Chem 7: 04/04/18 11:51 04/04/18 15:22 Laboratory Results - last 24 hr 04/04/18 04/04/18 04/04/18 11:51 11:51 11:51 WBC 11.3 H RBC 4.92 Hgb 15.5 Hct 46.5 MCV 94.5 MCH 31.5 MCHC 33.4 RDW 15.1 Plt Count 208 D MPV 9.6 Neut % (Auto) 72.4 H Lymph % (Auto) 17.5 [place] % (Auto) 6.9 Eos % (Auto) 2.1 Baso % (Auto) 1.1 Neut # (Auto) 8.2 H Lymph # (Auto) 2.0 [place] # (Auto) 0.8 Eos # (Auto) 0.2 Baso # (Auto) 0.1 WBC Differential . Differential Comment Auto diff final PT 10.0 INR 1.0 APTT 23.1 L Sodium 142 Potassium 4.7 Chloride 111 H Carbon Dioxide 28.3 Anion Gap 3 L BUN 14 Creatinine 1.60 H Estimated GFR 46 L Random Glucose 115 H Calcium 9.0 Total Bilirubin AST ALT Alkaline Phosphatase Total Creatine Kinase CK-MB (CK-2) Troponin I 0.51 H Total Protein Albumin 04/04/18 04/04/18 04/05/18 15:22 22:22 09:27 WBC RBC Hgb Hct MCV MCH MCHC RDW Plt Count MPV Neut % (Auto) Lymph % (Auto) [place] % (Auto) Eos % (Auto) Baso % (Auto) Neut # (Auto) Lymph # (Auto) [place] # (Auto) Eos # (Auto) Baso # (Auto) WBC Differential Differential Comment PT INR APTT Sodium 143 Potassium 4.3 Chloride 114 H Carbon Dioxide 21.8 Anion Gap 7 BUN 11 Creatinine 1.14 Estimated GFR 68 L Random Glucose 88 Calcium 7.7 L D Total Bilirubin 0.6 AST 25 ALT 29 Alkaline Phosphatase 65 Total Creatine Kinase 118 CK-MB (CK-2) 3.0 Troponin I 0.35 H 0.33 H 0.20 H Total Protein 6.6 Albumin 2.9 L - Imaging Impressions Chest X-Ray 04/04/18 11:35 CONCLUSION: Negative examination. Assessment and Plan - Assessment (1) Chest pain Code(s): R07.9 - Chest pain, unspecified Status: Acute (2) CAD (coronary artery disease) Code(s): I25.10 - Atherosclerotic heart disease of [place] coronary artery without angina pectoris Status: Acute - Plan 47-year-old morbidly obese male with a history of NSTEMI, CAD, s/p 2 stents placed who presents to the ED due to shoulder and jaw pain as well as diaphoresis relieved by nitroglycerin. Patient reports with his medications. Chest pain: with hx of CAD s/p stent placement few days ago. Patient's chest pain is concerning for cardiac origin. -Troponins are elevated to 0.51, 0.35, however downtrending from recent NSTEMI with his troponin 4.18, 9.73 on 03/31/2018 -Low elevation of downtrending troponin likely due to recent NSTEMI. -Consult Cardiology for their input. -Continue aspirin 81 mg, Plavix 75 mg, metoprolol tartrate 25 mg twice daily , enalapril 5 mg p.o. twice daily. -Morphine 5 mg every 4 hours as needed for pain. Nitroglycerin as needed. -Increase Lipitor to 80 mg nightly. -Start isosorbide mononitrate 60 mg daily. -Chest pains improving, await cardiology evaluation Morbid obesity Tobacco abuse - Patient counselled on smoking cessation and weight reduction Acute kidney injury - Creatinine improved from 1.60 on admission to 1.14. -Avoid nephrotoxins, monitor. Full code. DVT Prophylaxis: Lovenox. Discharge Planninhrs: RN informs me patient signed out AGAINST MEDICAL ADVICE. This patient has the capacity to refuse care and understands the risks of leaving, including permanent disability and/or , and has had an opportunity to ask questions about his/her condition. The patient has been informed that he may return for care at any time, and follow up has been advised. Discharge patient AGAINST MEDICAL ADVICE Condition on discharge: Stable Heart Healthy diet as tolerated Ad Bernadette activity Rx written: Follow-up with primary care physician and cardiology
== END 2018-04-05 12:08 | disposition left against medical advice (07) ==
LOC: NEPE 11:20 → NEDA 11:20 → NEPHCDU 11:20 → NEDA 16:30 → NEPHCDU 16:46
PROVIDERS: ADMIT Internal Medicine; ATTEND Internal Medicine

== ENCOUNTER 2018-04-28 19:49 | Observation (INO) ==
[2018-04-29 01:21] LABS: ABG Base Excess -2.3 mmol/L (-2-2); ABG PCO2 29 mmHg (38-42); ABG PO2 93 mmHg (61-120)
[2018-04-29 01:29] LABS: Baso # (Auto) 0.1 th/mm3 (0.0-0.2); Baso % (Auto) 0.8 % (0.0-2.0); Eos % (Auto) 0.4 % (0.0-4.0); Hemoglobin 17.5 gm/dL (13.0-17.0); Lymph # (Auto) 1.9 th/mm3 (1.0-4.8); Lymph % (Auto) 13.8 % (9.0-44.0); Mean Corpuscular HGB Conc 34.3 % (32.0-36.0); Mean Platelet Volume 9.1 fL (7.0-11.0); Mono # (Auto) 0.8 th/mm3 (0.0-0.9); Mono % (Auto) 5.7 % (0.0-8.0); Neut # (Auto) 10.9 th/mm3 (1.8-7.7); Neut % (Auto) 79.3 % (16.0-70.0); Platelet Count 193 th/mm3 (150-450); Red Blood Count 5.48 mil/mm3 (4.50-5.90); Red Cell Distribution Width 14.9 % (11.6-17.2); White Blood Count 13.7 th/mm3 (4.0-11.0)
[2018-04-29 01:36] LABS: Activated Partial Thrombo Time 25.7 sec (24.3-30.1); Prothrombin Time 10.6 sec (9.8-11.6)
--- NOTE | 2018-04-29 01:45 | XR ---
EXAM DATE: 04/29/2018 1:40 AM EDT AGE/SEX: 47 years / Male INDICATIONS: Chest and back pain. CLINICAL DATA: This is the patient's initial encounter. Patient reports that signs and symptoms have been present for 3 days and indicates a pain score of 6/10. MEDICAL/SURGICAL HISTORY: . Chronic obstructive pulmonary disease. Smoker. Coronary artery st ent. COMPARISON: [facility] [place], CHEST 1V SINGLE AP, 04/28/2018. . FINDINGS: A single AP view of the chest demonstrates the lungs to be symmetrically aerated without evidence of mass, infiltrate or effusion. The cardiomediastinal contours are unremarkable. Osseous structures a re intact. CONCLUSION: No acute cardiopulmonary process. Electronically signed by: Hector Calderón MD 04/29/2018 1:43 AM EDT
[2018-04-29 02:01] LABS: Alkaline Phosphatase 81 U/L (45-117); Total Protein 8.4 g/dL (6.4-8.2)
[2018-04-29 02:12] LABS: Alanine Aminotransferase 33 U/L (12-78); Albumin 3.8 g/dL (3.4-5.0); Anion Gap 10 meq/L (5-15); Aspartate Aminotransferase 25 U/L (15-37); Blood Urea Nitrogen 16 mg/dL (7-18); Calcium 9.2 mg/dL (8.5-10.1); Carbon Dioxide 22.5 meq/L (21.0-32.0); Chloride 109 meq/L (98-107); Glomerular Filtration Rate 54 mL/min (>89); Glucose,Random 165 mg/dL (74-106); Sodium 141 meq/L (136-145)
--- NOTE | 2018-04-29 03:01 | ED ---
HPI General Chief complaint: Psychiatric Symptoms Stated complaint: Cardiac Time Seen by Provider: 04/29/18 01:02 Source: patient Mode of arrival: ambulatory History of Present Illness HPI narrative: The patient is a 47-year-old male with past medical history significant for coronary artery disease hypertension and recent STEMI that was seen here in the ER earlier because of chest pain. He had a STEMI 1 month ago. He was seen here and evaluated earlier for left-sided chest pain. After reviewing previous records it appears that he left AMA after he is coronary catheterization where he was found to have moderate to severe three-vessel disease however only 2 stents were able to be placed with total occlusion of the LAD. Patient left AMA today as well because he got upset because he was not getting any pain medications. Triage nurse stated that he check back for psych but she has absolutely no idea what is going on. Patient does not want to kill himself. He did get upset but that does not mean he is suicidal or potentially going to hurt somebody. He is not suicidal he is not homicidal he is having a lot of chest pain and shortness of breath with minimal exertion. Onset (ago): unknown Severity scale (1-10): 1 Quality: aching and crushing Pain Consistency: constant and now resolved Exacerbating factors: movement Treatments prior to arrival: none Related Data Previous Rx's Medication Instructions Recorded aspirin 325 mg PO DAILY #30 tab 04/01/18 atorvastatin [Lipitor] 10 mg PO HS #30 tab 04/01/18 clopidogrel [Plavix] 75 mg PO DAILY #30 tab 04/01/18 enalapril maleate 5 mg PO BID #30 tab 04/01/18 metoprolol tartrate 12.5 mg PO BID #60 tab 04/01/18 nitroglycerin [Nitrostat] 0.4 mg SUBLINGUAL Q5-15M PRN #30 04/01/18 tab Allergies Allergy/AdvReac Type Severity Reaction Status Date / Time No Known Allergies Allergy Verified 04/28/18 17:14 Review of Systems ROS: all other systems reviewed are negative [facility] Medical History Medical History Asthma (Acute) COPD (chronic obstructive pulmonary disease) (Acute) Chest pain (Acute) Coronary artery disease (Acute) Past heart attack (Acute) Surgical History Surgical History Hx of cardiac catheterization (Acute) Social History Social History Substance History: No History of Abuse Second Hand Smoke Exposure: Yes Smoking Status: Never smoker Tobacco Type: Cigarettes How Often Do You Have a Drink Containing Alcohol: Never Recent Travel in [facility] within the Last 8 Weeks: No Recent Out of Country Travel within the Last 8 Weeks: No Immunization History Tetanus Immunization: <5 Years Hx Influenza Vaccine This Season: No Exam Narrative Exam Narrative: GENERAL: Alert and oriented in no distress SKIN: Focused skin assessment warm/dry. HEAD: Atraumatic. Normocephalic. EYES: Pupils equal and round. No scleral icterus. No injection or drainage. ENT: No nasal bleeding or discharge. Mucous membranes pink and moist. NECK: Trachea midline. No JVD. CARDIOVASCULAR: Regular rhythm. with tachycardia No murmur appreciated. RESPIRATORY: wheezing with accessory muscle use. Clear to auscultation. Breath sounds equal bilaterally. GASTROINTESTINAL: Abdomen soft, non-tender, nondistended. Hepatic and splenic margins not palpable. MUSCULOSKELETAL: No obvious deformities. No clubbing. No cyanosis. No edema. NEUROLOGICAL: Awake and alert. No obvious cranial nerve deficits. Motor grossly within normal limits. Normal speech. PSYCHIATRIC: Appropriate mood and affect; insight and judgment normal. Course Hospital Course: morphine.Based on presentation and symptoms will obtain a CT angios to rule out pulmonary embolism which was negative. Patient did have a cardiac event recently with catheterization and only 2 of the 3 vessels were stented. Initial workup here was negative for acute ischemia. He does have a white count of 13.7 but both chest x-ray and CT angios were negative for acute infectious process. Blood gases negative for hypoxemia is actually slightly alkalotic possibly secondary to hyperventilating especially when the PCO2 is 29. Hemodynamically stable. Analgesia provided with morphine. Patient was admitted chest pain unit. Again she did not exhibit any suicidal or homicidal intent. Reevaluation(s) Reevaluation #1: Resting comfortably no distress. Time: 00:47 Initial Documented Vital Signs Temperature 98.6 F 04/28/18 21:27 Pulse Rate 114 H 04/28/18 21:27 Respiratory Rate 18 04/28/18 21:27 Blood Pressure 176/104 H 04/28/18 21:27 Pulse Oximetry 97 04/28/18 21:27 Last Documented Vital Signs Temperature 98.6 F 04/28/18 21:27 Pulse Rate 88 04/29/18 04:44 Respiratory Rate 20 04/29/18 04:44 Blood Pressure 132/76 04/29/18 04:44 Pulse Oximetry 98 04/29/18 04:44 Medical Decision Making MDM Narrative Medical decision making narrative: Initial cardiac workup unremarkable CT Jennifer was obtained due to multiple risk factors and the patient's presentation of tachycardia hypo-hypoxia on pulse oximetry and market exertional dyspnea with localized chest pain radiating straight to his back. He could be having another cardiac event. There is no EKG changes patient was admitted to the cardiac chest pain unit Medical Screen Exam Complete: Yes Emergency Medical Condition: Yes Lab Data Lab results reviewed: Yes I reviewed the patient's lab results. Result diagrams: 04/29/18 01:10 04/29/18 01:10 Lab Results 04/29/18 04/29/18 04/29/18 Range/Units 01:07 01:10 01:10 WBC 13.7 H (4.0-11.0) th/mm3 RBC 5.48 (4.50-5.90) mil/mm3 Hgb 17.5 H (13.0-17.0) gm/dL Hct 51.0 (39.0-51.0) % MCV 93.0 (80.0-100.0) fL MCH 32.0 (27.0-34.0) pg MCHC 34.3 (32.0-36.0) % RDW 14.9 (11.6-17.2) % Plt Count 193 (150-450) th/mm3 MPV 9.1 (7.0-11.0) fL Neut % (Auto) 79.3 H (16.0-70.0) % Lymph % (Auto) 13.8 (9.0-44.0) % [place] % (Auto) 5.7 (0.0-8.0) % Eos % (Auto) 0.4 (0.0-4.0) % Baso % (Auto) 0.8 (0.0-2.0) % Neut # (Auto) 10.9 H (1.8-7.7) th/mm3 Lymph # (Auto) 1.9 (1.0-4.8) th/mm3 [place] # (Auto) 0.8 (0.0-0.9) th/mm3 Eos # (Auto) 0.0 (0.0-0.4) th/mm3 Baso # (Auto) 0.1 (0.0-0.2) th/mm3 WBC Differential . Differential Comment Auto diff final PT 10.6 (9.8-11.6) sec INR 1.0 Ratio APTT 25.7 (24.3-30.1) sec Puncture Site Left radial Patient Temperature 98.6 O2 Saturation 94 (90-100) % ABG pH 7.47 H (7.380-7.420) ABG pCO2 29 L (38-42) mmHg ABG pO2 93 (61-120) mmHg ABG HCO3 21 L (22-26) mmol/L ABG O2 Content 22.8 H (12.0-20.0) Vol % ABG Base Excess -2.3 L (-2-2) mmol/L ABG Methemoglobin 0.5 (0-2) % Art Test Present Hemoglobin 17.2 H (12.0-16.0) G/DL Carboxyhemoglobin 3.3 (0-4) % Inspired O2 21 % Critical Value No Sodium (136-145) meq/L Potassium (3.5-5.1) meq/L Chloride (98-107) meq/L Carbon Dioxide (21.0-32.0) meq/L Anion Gap (5-15) meq/L BUN (7-18) mg/dL Creatinine (0.60-1.30) mg/dL Estimated GFR (>89) mL/min Random Glucose (74-106) mg/dL Calcium (8.5-10.1) mg/dL Total Bilirubin (0.2-1.0) mg/dL AST (15-37) U/L ALT (12-78) U/L Alkaline Phosphatase (45-117) U/L Total Creatine Kinase (39-308) U/L Troponin I (0.02-0.05) ng/mL B-Natriuretic Peptide (0-100) pg/mL Total Protein (6.4-8.2) g/dL Albumin (3.4-5.0) g/dL 04/29/18 04/29/18 04/29/18 Range/Units 01:10 01:10 04:40 WBC (4.0-11.0) th/mm3 RBC (4.50-5.90) mil/mm3 Hgb (13.0-17.0) gm/dL Hct (39.0-51.0) % MCV (80.0-100.0) fL MCH (27.0-34.0) pg MCHC (32.0-36.0) % RDW (11.6-17.2) % Plt Count (150-450) th/mm3 MPV (7.0-11.0) fL Neut % (Auto) (16.0-70.0) % Lymph % (Auto) (9.0-44.0) % [place] % (Auto) (0.0-8.0) % Eos % (Auto) (0.0-4.0) % Baso % (Auto) (0.0-2.0) % Neut # (Auto) (1.8-7.7) th/mm3 Lymph # (Auto) (1.0-4.8) th/mm3 [place] # (Auto) (0.0-0.9) th/mm3 Eos # (Auto) (0.0-0.4) th/mm3 Baso # (Auto) (0.0-0.2) th/mm3 WBC Differential Differential Comment PT (9.8-11.6) sec INR Ratio APTT (24.3-30.1) sec Puncture Site Patient Temperature O2 Saturation (90-100) % ABG pH (7.380-7.420) ABG pCO2 (38-42) mmHg ABG pO2 (61-120) mmHg ABG HCO3 (22-26) mmol/L ABG O2 Content (12.0-20.0) Vol % ABG Base Excess (-2-2) mmol/L ABG Methemoglobin (0-2) % Art Test Hemoglobin (12.0-16.0) G/DL Carboxyhemoglobin (0-4) % Inspired O2 % Critical Value Sodium 141 (136-145) meq/L Potassium 4.0 (3.5-5.1) meq/L Chloride 109 H (98-107) meq/L Carbon Dioxide 22.5 (21.0-32.0) meq/L Anion Gap 10 (5-15) meq/L BUN 16 (7-18) mg/dL Creatinine 1.40 H (0.60-1.30) mg/dL Estimated GFR 54 L (>89) mL/min Random Glucose 165 H (74-106) mg/dL Calcium 9.2 (8.5-10.1) mg/dL Total Bilirubin 0.5 (0.2-1.0) mg/dL AST 25 (15-37) U/L ALT 33 (12-78) U/L Alkaline Phosphatase 81 (45-117) U/L Total Creatine Kinase 195 (39-308) U/L Troponin I Less than 0.02 L 0.02 (0.02-0.05) ng/mL B-Natriuretic Peptide 44 (0-100) pg/mL Total Protein 8.4 H (6.4-8.2) g/dL Albumin 3.8 (3.4-5.0) g/dL Imaging Data Radiologist's impression: Chest CTA 04/29/18 01:03 CONCLUSION: 1. No pulmonary embolus. 2. Hepatic steatosis. Chest X-Ray 04/29/18 01:03 CONCLUSION: No acute cardiopulmonary process. ECG Data Attestation: I personally reviewed and interpreted this ECG as follows: Interpretation: Sinus tachycardia [address]-T wave abnormalities. Normal axis. NO STEMI Discharge Plan Discharge Disposition Patient Disposition: 30 Still Patient Discharge Condition Condition: Stable Discharge Details Diagnosis: Chest pain, MAURY (acute kidney injury) Physicians Team ED Provider: Luis Justice Primary Care Provider: Primary Care Jaylin Chinchilla Attending Provider: Lester Nance Discharge Interventions Interventions: Vital Signs Last Done: 04/29/18 03:20 Status ED Status: Admitted Observation Patient
--- NOTE | 2018-04-29 03:19 | CT ---
EXAM DATE: 04/29/2018 2:55 AM EDT AGE/SEX: 47 years / Male INDICATIONS: Chest pain. Evaluate for embolism. CLINICAL DATA: This is the patient's initial encounter. Patient reports that signs and symptoms have been present for 1 day and indicates a pain score of 8/10. MEDICAL/SURGICAL HISTORY: Asthma. Chronic obstructive pulmonary disease. CAD. . Cardiac cath. RADIATION DOSE: 10.83 CTDI (mGy) COMPARISON: [facility], CTA PULMONARY W CONTRAST W 3D, 03/20/2018. . TECHNIQUE: Volumetric scanning was performed using a multi-row detector CT scanner during bolus infu aleks of 75 ml Omnipaque 350 (iohexol) nonionic water-soluble contrast as a single exam dose. The stevie a was post processed with a variety of visualization algorithms including full volume maximum intensi ty projection and sliding thin slab reformation. Using automated exposure control and adjustment of t he mA and/or kV according to patient size, radiation dose was kept as low as reasonably achievable to obtain optimal diagnostic quality images. DICOM format image data is available electronically for r eview and comparison. FINDINGS: Pulmonary Arteries: No filling defects are seen in the pulmonary arteries out to the subsegmental ve ssels. The left and right pulmonary arteries are normal in diameter. Lung: No infiltrates seen. Effusion: None. Mediastinum: No evidence of mediastinal or hilar adenopathy. There appears to be a stent in the LAD. Other: The axilla is unremarkable. There is decreased attenuation to the liver. CONCLUSION: 1. No pulmonary embolus. 2. Hepatic steatosis. Electronically signed by: Hector Calderón MD 04/29/2018 3:17 AM EDT
[2018-04-29] MEDS ORDERED: Morphine Inj 4 MG/ML Vial IV.PUSH ONE (03:26)
[2018-04-29 05:17] LABS: Troponin I 0.02 ng/mL (0.02-0.05)
[2018-04-29] MEDS ORDERED: Metoprolol Tartrate 25 MG Tablet PO SCH (10:00)
--- NOTE | 2018-04-29 10:03 | P.PNCA ---
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 He had a non-STEMI in the past that catheterization was reviewed he had stenting to his LAD but documented disease in his circumflex and right coronary artery that was to be treated medically. The patient has been noncompliant but presents again now with complaints of chest pain but is very demanding for pain medication. He was evaluated and ruled out for ACS pending nuclear stress testing he became belligerent about wanting to eat and then subsequently signed himself out AMA again. If he re- presents further evaluation of his psychiatric ability incompetence should be undertaken prior to further attempts at intervention. Physical Exam Vital signs: Vital Signs 04/28/18 21:27 04/29/18 01:04 04/29/18 01:24 Temperature 98.6 F Pulse Rate 114 H 111 H 110 H Respiratory Rate 18 18 24 Blood Pressure 176/104 H 136/91 H Pulse Oximetry 97 95 04/29/18 03:20 04/29/18 03:31 04/29/18 04:44 Temperature Pulse Rate 96 H 88 Respiratory Rate 18 20 Blood Pressure 124/60 132/76 Pulse Oximetry 95 95 98 04/29/18 08:00 04/29/18 08:39 Temperature 97.7 F Pulse Rate 83 81 Respiratory Rate 16 Blood Pressure 135/84 Pulse Oximetry 96 Intake & Output 04/28/18 04/29/18 04/29/18 18:59 06:59 18:59 Weight 115 kg
--- NOTE | 2018-04-29 10:20 | P.HPCA ---
History of Present Illness Primary Care Physician: No Primary Care Physician Chief Complaint: Chest pain History of Present Illness: This is a 47-year-old male with history of CAD status post stent 2 March 31, 2018 after he was a non-STEMI that presents to ED with complaint of chest discomfort. States he has been having chest discomfort multiple times a day even since having the stent placed. States it is similar to discomfort he had prior to the stent. States he has been compliant with his medications. Described as a left-sided sharp discomfort is sometimes worsened when he turns his head. He left 04/28/18 at 1830 AGAINST MEDICAL ADVICE and returned later that evening just before midnight with same complaint of chest discomfort. Also left AGAINST MEDICAL ADVICE after having his cardiac catheterization with stent placement. He has not followed up with Dr. Matta stating he is having insurance issues. Has not followed up with his primary care physician. Patient also states he has history of schizophrenia but does not take medication. He is very upset when I entered the room and talked for at least 5 minutes about him not getting pain medication and not being fed for 2 days. - Diagnosis (1) H/O heart artery stent (2) Tobacco abuse (3) Obesity (4) Hyperlipidemia (5) Schizophrenia (6) Chest pain (7) CAD (coronary artery disease) Review of Systems General: Patient denies fevers, chills, and recent travel. HEENT: Patient denies headache, sore throat, difficulty swallowing. Cardiovascular: Has the chest discomfort as mentioned above. Denies sensation of heart beating rapidly or irregularly. No syncope. Denies diaphoresis. Respiratory: Denies shortness of breath or inspirational chest discomfort. Denies coughing wheezing or hemoptysis. GI: Patient denies nausea, vomiting, diarrhea, abdominal pain, bloody stools. Musculoskeletal: Complains of chronic back pain. Patient denies joint pain or edema. Denies calf pain or edema. Neurovascular: Patient denies numbness, tingling, weakness in extremities. Denies headache. Endocrine: Denies polyuria and polydipsia. Hematologic: Denies easy bruising. Skin: Denies rash or itching. PMFSH - History History Provided By: Patient - Medical History Medical History: Medical History (Last Reviewed 04/29/18 @ 06:44 by Luis Justice DO) Asthma COPD (chronic obstructive pulmonary disease) Chest pain Coronary artery disease Past heart attack - Surgical History Surgical History: Surgical History (Last Reviewed 04/29/18 @ 06:44 by Luis Justice DO) Hx of cardiac catheterization - Tobacco History Second Hand Smoke Exposure: No Tobacco Use In Past 30 Days: Yes Smoking Status: Current every day smoker Tobacco Type: Cigarettes - Alcohol History How Often Do You Have a Drink Containing Alcohol: Monthly or less - Substance Use History Substance History: Active Abuse - Substance Use Type Marijuana Status: Active Route Used: Inhalation Last Used: 2 weeks ago Comment: takes for pain - Travel History Recent Travel in the [place] Within the Last 8 Weeks: No Recent Travel Out of the Country Within the Last 8 Weeks: No - Immunization History Tetanus Immunization: <5 Years Hx Influenza Vaccine This Season: No Medications and Allergies Active Medications: Active Medications Hydrocodone Bitart/Acetaminophen ([place] 7.5/325) 1 tab PO Q6H PRN PRN Reason: pain scale 6-10 Aspirin (Ecotrin) 325 mg PO DAILY KRISTYN Atorvastatin Calcium (Lipitor) 10 mg PO HS KRISTYN Clopidogrel Bisulfate (Plavix) 75 mg PO DAILY KRISTYN Metoprolol Tartrate (Lopressor) 12.5 mg PO BID KRISTYN Miscellaneous (Pill Splitter) 1 each OTHER UNSCH PRN PRN Reason: PILL SPLITTING Sodium Chloride (Ns Flush) 2 ml IV.FLUSH BID KRISTYN Sodium Chloride (Ns Flush) 2 ml IV.FLUSH PRN PRN PRN Reason: FLUSH AFTER USING IV ACCESS Allergies Allergy/AdvReac Type Severity Reaction Status Date / Time No Known Allergies Allergy Verified 04/28/18 17:14 Exam Vital signs: Vital Signs 04/28/18 21:27 04/29/18 01:04 04/29/18 01:24 Temperature 98.6 F Pulse Rate 114 H 111 H 110 H Respiratory Rate 18 18 24 Blood Pressure 176/104 H 136/91 H Pulse Oximetry 97 95 04/29/18 03:20 04/29/18 03:31 04/29/18 04:44 Temperature Pulse Rate 96 H 88 Respiratory Rate 18 20 Blood Pressure 124/60 132/76 Pulse Oximetry 95 95 98 04/29/18 08:00 04/29/18 08:39 Temperature 97.7 F Pulse Rate 83 81 Respiratory Rate 16 Blood Pressure 135/84 Pulse Oximetry 96 Intake & Output 04/28/18 04/29/1818 18:59 06:59 18:59 Weight 115 kg Narrative: GENERAL: This is a well-nourished, well-developed patient, in no apparent distress. Patient speaks in clear complete sentences. Patient is pleasant. HEENT: Head is atraumatic and normocephalic. Neck is supple without lymphadenopathy and trachea is midline. No JVD or carotid bruits. CARDIOVASCULAR: Regular rate and rhythm without murmurs, gallops, or rubs. RESPIRATORY: Clear to auscultation. Breath sounds equal bilaterally. No wheezes , rales, or rhonchi. Chest wall is nontender. No use of accessory muscles. GASTROINTESTINAL: Abdomen is nontender, nondistended. Abdomen soft. No obvious pulsatile mass or bruit. No CVA tenderness. Strong femoral pulses bilaterally. Normal bowel sounds in all quadrants. MUSCULOSKELETAL: Patient is moving upper and lower extremities freely. No calf tenderness or edema, no Homans sign. Strong pulses in upper and lower extremities. NEUROLOGICAL: Patient is alert and oriented. Cranial nerves 2-12 are grossly intact. No focal deficits and speech is clear. SKIN: No rash and turgor is normal. Results 04/29/18 01:10 04/29/18 01:10 Cardiac Enzymes 04/29/18 04/29/18 04/29/18 Range/Units 01:10 01:10 04:40 AST 25 (15-37) U/L Troponin I Less than 0.02 L 0.02 (0.02-0.05) ng/mL B-Natriuretic Peptide 44 (0-100) pg/mL Coagulation 04/29/18 04/29/18 Range/Units 01:10 01:10 PT 10.6 (9.8-11.6) sec APTT 25.7 (24.3-30.1) sec B-Natriuretic Peptide 44 (0-100) pg/mL CBC 04/29/18 Range/Units 01:10 WBC 13.7 H (4.0-11.0) th/mm3 RBC 5.48 (4.50-5.90) mil/mm3 Hgb 17.5 H (13.0-17.0) gm/dL Hct 51.0 (39.0-51.0) % Plt Count 193 (150-450) th/mm3 Neut # (Auto) 10.9 H (1.8-7.7) th/mm3 Lymph # (Auto) 1.9 (1.0-4.8) th/mm3 [place] # (Auto) 0.8 (0.0-0.9) th/mm3 Eos # (Auto) 0.0 (0.0-0.4) th/mm3 Baso # (Auto) 0.1 (0.0-0.2) th/mm3 Comprehensive Metabolic Panel 04/29/18 Range/Units 01:10 Sodium 141 (136-145) meq/L Potassium 4.0 (3.5-5.1) meq/L Chloride 109 H (98-107) meq/L Carbon Dioxide 22.5 (21.0-32.0) meq/L BUN 16 (7-18) mg/dL Creatinine 1.40 H (0.60-1.30) mg/dL Calcium 9.2 (8.5-10.1) mg/dL AST 25 (15-37) U/L ALT 33 (12-78) U/L Alkaline Phosphatase 81 (45-117) U/L Total Protein 8.4 H (6.4-8.2) g/dL Albumin 3.8 (3.4-5.0) g/dL Intake and Output 04/28/18 04/29/18 04/29/18 22:59 06:59 14:59 Other: Weight 115 kg EKG interpretations - EKG EKG shows: sinus rhythm (Initial EKG is sinus rhythm without significant ST segment depressions or elevations.) Caprini VTE Risk Assessment Caprini VTE Risk Assessment: No/Low Risk (score <= 1) Caprini Risk Assessment Model: Point Value = 1 Point Value = 2 Point Value = 3 Point Value = 5 Age 41-60 Minor surgery BMI > 25 kg/m2 Swollen legs Varicose veins or History of unexplained or recurrent spontaneous Oral contraceptives or hormone replacement Sepsis (< 1 month) Serious lung disease, including pneumonia (< 1 month) Abnormal pulmonary function Acute myocardial infarction Congestive heart failure (< 1 month) History of inflammatory bowel disease Medical patient at bed rest Age 61-74 Arthroscopic surgery Major open surgery (> 45 min) Laparoscopic surgery (> 45 min) Malignancy Confined to bed (> 72 hours) Immobilizing plaster cast Central venous access Age >= 75 History of VTE Family history of VTE Factor V Leiden Prothrombin [id number] Lupus anticoagulant Anticardiolipin antibodies Elevated serum homocysteine Heparin-induced thrombocytopenia Other congenital or acquired thrombophilia Stroke (< 1 month) Elective arthroplasty Hip, pelvis, or leg fracture Acute spinal cord injury (< 1 month) Prophylaxis Regimen: Total Risk Factor Score Risk Level Prophylaxis Regimen 0-1 Low Early ambulation 2 Moderate Order ONE of the following: *Sequential Compression Device (SCD) *Heparin 5000 units SQ BID 3-4 Higher Order ONE of the following medications: *Heparin 5000 units SQ TID *Enoxaparin/Lovenox 40 mg SQ daily (WT < 150 kg, CrCl > 30 mL/min) *Enoxaparin/Lovenox 30 mg SQ daily (WT < 150 kg, CrCl > 10-29 mL/min) *Enoxaparin/Lovenox 30 mg SQ BID (WT < 150 kg, CrCl > 30 mL/min) AND/OR *Sequential Compression Device (SCD) 5 or more Highest Order ONE of the following medications: *Heparin 5000 units SQ TID (Preferred with Epidurals) *Enoxaparin/Lovenox 40 mg SQ daily (WT < 150 kg, CrCl > 30 mL/min) *Enoxaparin/Lovenox 30 mg SQ daily (WT < 150 kg, CrCl > 10-29 mL/min) *Enoxaparin/Lovenox 30 mg SQ BID (WT < 150 kg, CrCl > 30 mL/min) AND *Sequential Compression Device (SCD) Assessment and Plan - Assessment (1) H/O heart artery stent Code(s): Z95.5 - Presence of coronary angioplasty implant and graft Status: Acute (2) Tobacco abuse Code(s): Z72.0 - Tobacco use Status: Acute (3) Obesity Code(s): E66.9 - Obesity, unspecified Status: Acute (4) Hyperlipidemia Code(s): E78.5 - Hyperlipidemia, unspecified Status: Acute (5) Schizophrenia Code(s): F20.9 - Schizophrenia, unspecified Status: Acute (6) Chest pain Code(s): R07.9 - Chest pain, unspecified Status: Acute (7) CAD (coronary artery disease) Code(s): I25.10 - Atherosclerotic heart disease of [place] coronary artery without angina pectoris Status: Acute - Plan * Chest pain: Patient had serial cardiac enzymes and EKGs for ruling out purposes. He was going to be seen by Dr. Nance of cardiology in the chest pain center however patient decided to leave AGAINST MEDICAL ADVICE prior to that evaluation. He told the nurse that he was made that he was not being fed and did not pain medication. I had already ordered pain medication to be on a as needed basis but had not crossed the pharmacy yet. He was to be kept n.p.o. until Dr. Nance evaluated the patient to determine if further cardiac testing warranted. Again patient left AGAINST MEDICAL ADVICE. H&P: Quality - VTE Deep Vein Thrombosis/Pulmonary Embolism Present on Admission: No (6) Chest pain Qualifiers: Chest pain type: unspecified Qualified Code(s): R07.9 - Chest pain, unspecified
--- NOTE | 2018-04-29 11:12 | ECG ---
Date Performed: 04/29/2018 Time Performed: 04:35:42 PTAGE: 47 years EKG: Sinus rhythm MODERATE T-WAVE ABNORMALITY, CONSIDER ANTERIOR ISCHEMIA ABNORMAL ECG Nonspecific changes persist but are nondiagnostic PREVIOUS TRACING : 04/29/2018 00.59 DOCTOR: Lester Nance Interpretating Date/Time 04/29/2018 11:10:51
--- NOTE | 2018-04-29 11:13 | ECG ---
Date Performed: 04/29/2018 Time Performed: 00:59:17 PTAGE: 47 years EKG: SINUS TACHYCARDIA NONSPECIFIC T-WAVE ABNORMALITY ABNORMAL RHYTHM ECG No significant change PREVIOUS TRACING : 04/28/2018 17.14 DOCTOR: Lester Nance Interpretating Date/Time 04/29/2018 11:11:30
== END 2018-04-29 10:42 | disposition left against medical advice (07) ==
LOC: NEPHCDU 19:49 → NEDA 19:49 → NEPC 19:49 → NEPHCDU 04-29 07:20
PROVIDERS: ADMIT Internal Medicine Interventional Cardiology; ATTEND Internal Medicine Interventional Cardiology
DX: E78.5 Hyperlipidemia, unspecified; F20.9 Schizophrenia, unspecified; K76.0 Fatty (change of) liver, not elsewhere classified; R07.89 Other chest pain; I25.82 Chronic total occlusion of coronary artery; Z68.37 Body mass index [BMI] 37.0-37.9, adult; E66.9 Obesity, unspecified; I25.2 Old myocardial infarction; I25.10 Atherosclerotic heart disease of native coronary artery without angina pectoris; Z79.02 Long term (current) use of antithrombotics/antiplatelets; I10 Essential (primary) hypertension; J44.9 Chronic obstructive pulmonary disease, unspecified; Z79.82 Long term (current) use of aspirin; N17.9 Acute kidney failure, unspecified; F17.210 Nicotine dependence, cigarettes, uncomplicated; Z91.19 Patient's noncompliance with other medical treatment and regimen; Z95.5 Presence of coronary angioplasty implant and graft